=== PATIENT | male | born 1940 | race Caucasian/White ===

== ENCOUNTER 2022-03-04 06:55 | Outpatient (REF) | payer OTHER, SELFPAY ==
[2022-03-04 08:29] LABS: Appearance Urine Clear (Clear); Bilirubin Urine Negative (Negative); Blood Urine Negative (Negative); Color Urine Yellow (Yellow); Glucose Urine Negative (Negative); Ketones Urine Negative (Negative); Leukocyte Esterase Urine Negative (Negative); Nitrite Urine Negative (Negative); Protein Urine 2+ (Negative); Urobilinogen Urine 0.2 (0.2-1.0)
[2022-03-04 08:40] LABS: Bacteria Urine Many; RBC Urine 0-2 (0-2); Squamous Epithelial Cell Urine Few (None-Few); WBC Urine 0-2 (0-5)
== END 2022-03-04 06:56 | disposition home or self-care (01) ==
LOC: NPINS 06:55
PROVIDERS: Visit Provider Family Medicine
DX: R82.79 Other abnormal findings on microbiological examination of urine (principal)
CPT/HCPCS: 81001; 87086; 87186

== ENCOUNTER 2023-01-19 14:52 | Outpatient (CLI) | payer OTHER, SELFPAY | END 2023-01-19 14:53 | disposition home or self-care (01) | LOC: AMB 01-28 19:21 | PROVIDERS: PCP Family Medicine; Visit Provider Family Medicine | DX: R10.9 Unspecified abdominal pain (principal) | CPT/HCPCS: A0425; A0429 ==

== ENCOUNTER 2023-01-19 15:21 | Emergency (ER) | payer OTHER, SELFPAY ==
[2023-01-19] VITALS (16 sets, daily range): BP systolic 147–164; BP diastolic 62–71; PULSE 86–109; RESP 18; TEMP 36.2; O2SAT 91–99; BMI 26.3
--- NOTE | 2023-01-19 15:34 | ED_ITS ---
HPI - Abdominal Pain General Time Seen by Provider: 15:34 Date Seen: 01/19/23 Chief Complaint: Abdominal Pain Stated Complaint: Abdominal Pain Time Seen by Provider: 01/19/23 15:24 Source: patient, EMS, RN notes reviewed and old records reviewed Mode of arrival: EMS Limitations: no limitations History of Present Illness HPI narrative: Patient is an 82-year-old male resident of [address] [place] [address] that is sent in for abdominal pain. He is been noted to have abdominal pain bloating, started sometime between breakfast and lunch. He states he was quite sweaty on the way in due to the pain. That has subsided some. States he had a normal bowel movement this morning but does not believe he is passing gas from below. He has not had any fevers prior to this. Denies any nausea or vomiting. Denies any urinary symptoms. He has not been burping more. He is unaware if he is bloated right now our not. Denies any abdominal surgeries. He does have a scar in his right upper abdomen and states that is from they placed a [employer] shunt. EMS found his sugar to be 296. He states he did not get any medication from them EN route. Outside medication reconciliation from [address] [place] [address] includes Tylenol, acetylcysteine capsule, artificial tears, 81 mg aspirin, atorvastatin, Cepacol lozenges, Plavix, Debrox otic, Dupilumab injection, gabapentin, guaifenesin, hydroxyzine, ketotifen ophthalmic, levothyroxine, liquid antacid, loperamide, loratadine, melatonin, metformin, mirtazapine, pantoprazole, senna, tamsulosin, triamcinolone 0.1% topical, Vanicream POLST paperwork shows him to be DNR DNI, selective treatments no artificial nutrition by tube, oral antibiotics only, no IV or IM antibiotics Diagnoses on his outside paperwork show 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 MD elicited complaint: abdominal pain Related Data Home Medications Medication Instructions Recorded Confirmed aspirin 81 mg capsule 81 mg PO DAILY 01/19/23 01/19/23 atorvastatin 20 mg tablet 20 mg PO DAILY 01/19/23 01/19/23 clopidogrel 75 mg tablet 75 mg PO DAILY 01/19/23 01/19/23 gabapentin 300 mg capsule 300 mg PO QHS 01/19/23 01/19/23 levothyroxine 50 mcg tablet 50 mcg PO DAILY 01/19/23 01/19/23 (Euthyrox) loratadine 10 mg tablet (Allergy 10 mg PO DAILY 01/19/23 01/19/23 Relief (loratadine)) melatonin 3 mg capsule 3 mg PO HS PRN 01/19/23 01/19/23 metformin .ROUTE 01/19/23 pantoprazole 40 mg tablet,delayed 40 mg PO DAILY 01/19/23 01/19/23 release tamsulosin 0.4 mg capsule 0.4 mg PO DAILY 01/19/23 01/19/23 Allergies Allergy/AdvReac Type Severity Reaction Status Date / Time desoximetasone Allergy Unknown Verified 01/19/23 15:27 formaldehyde Allergy Unknown Verified 01/19/23 15:27 lisinopril Allergy Unknown Verified 01/19/23 15:27 methylisothiazolinone Allergy Unknown Verified 01/19/23 15:27 Review of Systems Status of ROS Reports: 6 or more systems reviewed and unremarkable except as noted in History and below Exam Const: Vital Signs, click to edit/add: Vital Signs - 24 hr 01/19/23 15:23 Temperature 97.1 F L Pulse Rate [Pulse Oximeter] 86 Respiratory Rate 18 Blood Pressure [Ri ght Upper Arm] 159/68 H Pulse Oximetry 95 Oxygen Delivery Me thod Room Air Documenting provider has reviewed patient's vital signs: yes Common normals: no apparent distress, average body habitus, no limitations, alert and well nourished General appearance: cooperative, comfortable, well kempt, well developed and frail appearing HENMT: Common normals: normocephalic, head/scalp atraumatic, hearing grossly normal bilaterally and external nose normal Head and scalp: normocephalic and atraumatic Face and sinus: normal facial exam Nose: external nose normal Eye: Common normals: PERRL, EOMs intact bilaterally, conjunctivae normal and no scleral icterus Conjunctiva: conjunctiva(e) normal Pupil: PERRL Neck & C-Spine: Common normals: full ROM, no lymphadenopathy and supple Resp: Common normals: normal respiratory effort, no retractions, no use of accessory muscles and clear to auscultation bilaterally Effort & inspection: able to speak in complete sentences Auscultation: clear to auscultation bilaterally Cardio: Common normals: regular rate, regular rhythm, S1 normal heart sound, S2 normal heart sound, no gallops and no murmurs Rate: regular rate Rhythm: regular rhythm Heart sounds: S1 normal and S2 normal GI: Other: Abdomen looks distended, has somewhat hyperactive bowel sounds, is not complaining of any tenderness when I palpate. There is certainly no rebound or guarding at this time. Neuro: Sensorium/orientation: alert Psych: Appearance: well kempt Course Course Hospital Course: Patient is an 82-year-old male with abdominal pain that seems to have abated at this time. On exam he really does seem distended and possibly some hyper active bowel sounds. Concern for obstructive bowel pathology certainly is a concern here. Will proceed with CT imaging with IV contrast, get full complement baseline labs. At this time he is stating he is not in pain but if the pain returns, have asked him to notify us. Reevaluation(s) Time of Reevaluation #1: 18:24 Reevaluation #1: Reviewed with Cherri that his CT of his abdomen was completely normal here. He has not had return of pain. Presumably this was maybe some bowel gas pain. In his records, we were able to see he had a hemoglobin of 9.1 on 10/09/2022, thus this hemoglobin is stable, currently 9 today. Did have nursing staff drop point of care troponin later and obtain an EKG just to ensure that we were not missing atypical presentation of cardiac issues. The troponin was certainly drawn well over 3 hours after his episode of pain. There is no evidence ischemic heart disease. This time will discharge back [facility]. Vital Signs Vital signs: Initial Vital Signs Temperature 97.1 F L 01/19/23 15:23 Temperature Source Temporal Artery Scan 01/19/23 15:23 Pulse Rate 86 01/19/23 15:23 Respiratory Rate 18 01/19/23 15:23 Blood Pressure 159/68 H 01/19/23 15:23 Blood Pressure Mean 98 01/19/23 15:23 Blood Pressure Position Supine 01/19/23 15:23 Pulse Oximetry 95 01/19/23 15:23 Oxygen Delivery Method Room Air 01/19/23 15:23 Vital Signs Temperature 97.1 F L 01/19/23 15:23 Pulse Rate 86 01/19/23 15:23 Respiratory Rate 18 01/19/23 15:23 Blood Pressure 159/68 H 01/19/23 15:23 Pulse Oximetry 95 01/19/23 15:23 Oxygen Delivery Method Room Air 01/19/23 15:23 Temperature 97.1 F L 01/19/23 15:23 Pulse Rate 86 01/19/23 15:23 Respiratory Rate 18 01/19/23 15:23 Blood Pressure 159/68 H 01/19/23 15:23 Pulse Oximetry 95 01/19/23 15:23 Oxygen Delivery Method Room Air 01/19/23 15:23 MDM - Abdominal Pain Lab Data Attestation: I reviewed the patient's lab results. Labs: Lab Results 01/19/23 01/19/23 01/19/23 Range/Units 16:10 16:15 17:30 WBC 10.21 (4.50-11.00) K/uL RBC 4.49 (4.30-5.90) m/uL Hgb 8.6 L (13.5-17.5) gm/dL Hct 30.8 L (37.0-53.0) % MCV 69 L (80-100) fL MCH 19 L (26-34) pg MCHC 28 L (32-36) gm/dL RDW Coeff of Adriana 17.9 H (11.5-15.5) % Plt Count 258 (140-440) K/uL Neut % (Auto) 84.0 H (42.0-72.0) % Lymph % (Auto) 5.6 L (20-44) % [place] % (Auto) 7.7 (0.0-11.0) % Eos % (Auto) 2.0 (0.0-7.0) % Baso % (Auto) 0.5 (0.0-3.0) % Neut # (Auto) 8.60 H (1.7-7.0) K/uL Lymph # (Auto) 0.60 L (0.90-2.90) K/uL [place] # (Auto) 0.80 (0.00-0.90) K/UL Eos # (Auto) 0.20 (0.00-0.50) K/uL Baso # (Auto) 0.05 (0.00-0.30) K/uL Abs Immat Gran (auto) 0.02 (0.00-0.30) K/uL Imm/Tot Granulo (auto) 0.2 % Sodium 136 (135-149) mmol/L Potassium 4.8 (3.6-5.1) mmol/L Chloride 101 (96-114) mmol/L Carbon Dioxide 26 (20-32) mmol/L BUN 21 (7-30) mg/dL Creatinine 1.4 (0.5-1.5) mg/dL Estimated Creat Clear 36.00 Estimated GFR 50 ml/min Glucose 229 H (60-115) mg/dL Lactate 1.8 (0.5-1.9) mmol/L Calcium 8.5 (8.4-10.6) mg/dL Total Bilirubin 0.6 (0.1-1.5) mg/dL AST 129 H (12-35) U/L ALT 45 (4-50) U/L Alkaline Phosphatase 185 H (40-150) U/L C-Reactive Protein 1.4 H (0.5-1.0) mg/dL Total Protein 7.3 (6.0-8.3) g/dL Albumin 4.1 (3.3-5.0) g/dL Lipase 325 H (23-300) U/L POC Creatinine 1.6 H (0.6-1.3) mg/dl POC Troponin I 0.00 L (0.01-0.04) ng/ml Imaging Data CT scan - abdomen: Attestation: I have reviewed the pertinent imaging results. Radiologist's impression: Patient: CHERRI KAUR Facility:?[facility] Patient ID:?[id number] Site Patient ID:?[id number]. Site :?[id number] Study:?CT Abdomen/Pelvis W/ 74CC [id number]/[id number] 4:35:04 PM Ordering Physician:?Kelly Echeverria Final Report: INDICATION: Abdominal pain and bloating. TECHNIQUE: CT abdomen and pelvis acquired with IV contrast. 74 mL IV Isovue 370. COMPARISON: None FINDINGS: Lower chest: Unremarkable. Liver: No focal liver lesion. Gallbladder and bile ducts: Unremarkable. Spleen: Unremarkable. Pancreas: Unremarkable. Adrenal glands: Unremarkable. Kidneys: No kidney or ureteral stones and no hydronephrosis. No renal lesions. GI tract: Small hiatal hernia. No bowel obstruction or inflammation. No fluid collection in the abdomen at the tip of the catheter. Vascular structures: Atherosclerotic calcifications in the abdominal aorta and branches. No abdominal aortic aneurysm. Lymph nodes: No abdominal or pelvic lymphadenopathy. Miscellaneous: No ascites. No free air. The distal aspect of a catheter is seen coursing along the subcutaneous soft tissues of the right anterior chest wall, it enters the right upper quadrant and has its tip in the left mid abdomen. No discontinuity of the catheter. Pelvic Organs: The prostate is enlarged. Normal appearance of the urinary bladder. Bones: Degenerative changes in the spine. No acute osseous abnormality. No suspicious bone lesion. IMPRESSION: 1. No acute abnormality in the abdomen or pelvis. 2. Small hiatal hernia. Please note that all CT scans at this facility use dose modulation, iterative reconstruction, and/or weight-based dosing when appropriate to reduce radiation dose to as low as reasonably achievable. Dictated by Lisandra Garces MD @ 01/19/2023 5:07:09 PM (Electronic Signature) ECG Data Attestation: I personally reviewed and interpreted this ECG as follows: (Sinus rhythm, rate 99. Low-voltage QRS. No acute ischemic change. QT corrected 449 milliseconds.) ECG interpretation date: 01/19/23 ECG interpretation time: 18:26 Prior ECG tracings: not available for review Critical Care Time Critical Care Time Critical Care Time: No Discharge Plan Discharge Clinical Impression: Abdominal pain Patient Disposition: Home, Self-Care Condition: Stable Instructions: Abdominal Pain (ED) Additional Instructions: We have not found any etiology for your abdominal pain. CT of your abdomen pelvis with IV contrast is showing a small hiatal hernia only. Doubt that this would have given you the symptoms you had earlier. It is possible that this could have been bowel gas as that can be extremely painful. Continue to monitor symptoms, seek re-evaluation if you have further concerns or problems. Activity Level: Activity as Tolerated Prescriptions: No Action aspirin 81 mg capsule 81 mg PO DAILY atorvastatin 20 mg tablet 20 mg PO DAILY clopidogrel 75 mg tablet 75 mg PO DAILY gabapentin 300 mg capsule 300 mg PO QHS levothyroxine [Euthyrox] 50 mcg tablet 50 mcg PO DAILY loratadine [Allergy Relief (loratadine)] 10 mg tablet 10 mg PO DAILY melatonin 3 mg capsule 3 mg PO HS PRN metformin .ROUTE pantoprazole 40 mg tablet,delayed release (DR/EC) 40 mg PO DAILY tamsulosin 0.4 mg capsule 0.4 mg PO DAILY Stand Alone Forms: [facility] Info Instructions
--- NOTE | 2023-01-19 15:38 | CRLHL7_ITS ---
For Patients: As a result of the Century Cures Act, medical imaging exams and procedure reports are released immediately into your electronic medical record. You may view this report before your referring provider. If you have questions, please contact your health care provider. INDICATION: Abdominal pain and bloating. TECHNIQUE: CT abdomen and pelvis acquired with IV contrast. 74 mL IV Isovue 370. COMPARISON: None FINDINGS: Lower chest: Unremarkable. Liver: No focal liver lesion. Gallbladder and bile ducts: Unremarkable. Spleen: Unremarkable. Pancreas: Unremarkable. Adrenal glands: Unremarkable. Kidneys: No kidney or ureteral stones and no hydronephrosis. No renal lesions. GI tract: Small hiatal hernia. No bowel obstruction or inflammation. No fluid collection in the abdomen at the tip of the catheter. Vascular structures: Atherosclerotic calcifications in the abdominal aorta and branches. No abdominal aortic aneurysm. Lymph nodes: No abdominal or pelvic lymphadenopathy. Miscellaneous: No ascites. No free air. The distal aspect of a catheter is seen coursing along the subcutaneous soft tissues of the right anterior chest wall, it enters the right upper quadrant and has its tip in the left mid abdomen. No discontinuity of the catheter. Pelvic Organs: The prostate is enlarged. Normal appearance of the urinary bladder. Bones: Degenerative changes in the spine. No acute osseous abnormality. No suspicious bone lesion. IMPRESSION: 1. No acute abnormality in the abdomen or pelvis. 2. Small hiatal hernia. Please note that all CT scans at this facility use dose modulation, iterative reconstruction, and/or weight-based dosing when appropriate to reduce radiation dose to as low as reasonably achievable. Dictated by Lisandra Garces MD @ 01/19/2023 5:07:09 PM (Electronically Signed)
[2023-01-19 16:16] LABS: Lactate* 1.8 mmol/L (0.5-1.9)
[2023-01-19 16:18] LABS: Basophils Absolute Auto 0.05 K/uL (0.00-0.30); Basophils Percent Auto 0.5 % (0.0-3.0); Hematocrit 30.8 % (37.0-53.0); Hemoglobin* 8.6 gm/dL (13.5-17.5); Immature Granulocytes Abs Auto 0.02 K/uL (0.00-0.30); Immature Granulocytes Pct Auto 0.2 %; Lymphocytes Percent Auto 5.6 % (20-44); Mean Corpuscular HGB Conc 28 gm/dL (32-36); Mean Corpuscular Hemoglobin 19 pg (26-34); Mean Corpuscular Volume 69 fL (80-100); Monocytes Percent Auto 7.7 % (0.0-11.0); Platelet Count* 258 K/uL (140-440); RDW Coefficient of Variation % 17.9 % (11.5-15.5); Red Blood Count 4.49 m/uL (4.30-5.90); White Blood Count* 10.21 K/uL (4.50-11.00)
[2023-01-19 16:20] LABS: Creatinine, Point-of-Care* 1.6 mg/dl (0.6-1.3)
[2023-01-19 16:22] LABS: Slide Review Reflex No
[2023-01-19 16:39] LABS: Albumin* 4.1 g/dL (3.3-5.0); Chloride* 101 mmol/L (96-114); Sodium* 136 mmol/L (135-149)
[2023-01-19 16:40] LABS: Potassium* 4.8 mmol/L (3.6-5.1)
[2023-01-19 16:42] LABS: Alanine Aminotransferase* 45 U/L (4-50); Alkaline Phosphatase* 185 U/L (40-150); Aspartate Amino Transferase* 129 U/L (12-35); Bilirubin Total* 0.6 mg/dL (0.1-1.5); Blood Urea Nitrogen* 21 mg/dL (7-30); Carbon Dioxide* 26 mmol/L (20-32); Creatinine* 1.4 mg/dL (0.5-1.5); Estimated Glomerular Filt Rate 50 ml/min; Glucose* 229 mg/dL (60-115); Total Protein* 7.3 g/dL (6.0-8.3)
[2023-01-19 16:43] LABS: Calcium* 8.5 mg/dL (8.4-10.6); Lipase* 325 U/L (23-300)
[2023-01-19 16:45] LABS: C Reactive Protein* 1.4 mg/dL (0.5-1.0)
[2023-01-19 18:24] LABS: Appearance Urine Clear (Clear); Bilirubin Urine Negative (Negative); Blood Urine Trace-intact (Negative); Color Urine Yellow (Yellow); Glucose Urine 1+ (Negative); Ketones Urine Negative (Negative); Leukocyte Esterase Urine Negative (Negative); Nitrite Urine Negative (Negative); Protein Urine 2+ (Negative); Specific Gravity Urine 1.015 (1.000-1.030); Urobilinogen Urine 0.2 (0.2-1.0)
[2023-01-19 18:34] LABS: RBC Urine 0-2 (0-2); WBC Urine 0-2 (0-5)
== END 2023-01-19 19:28 | disposition home or self-care (01) ==
PROVIDERS: Emergency Provider Family Medicine; PCP Internal Medicine Cardiovascular Disease
DX: R10.9 Unspecified abdominal pain (principal)
CPT/HCPCS: 36415; 74177; 80053; 81001; 82565; 83605; 83690; 84484; 85025; 86140; 93005; 94761; 99284; 99285; Q9967

== ENCOUNTER 2023-01-20 08:00 | Outpatient (CLI) | payer OTHER, SELFPAY | END 2023-01-20 08:01 | disposition home or self-care (01) | LOC: AMB 01-28 19:41 | PROVIDERS: PCP Family Medicine; Visit Provider Family Medicine | DX: E11.65 Type 2 diabetes mellitus with hyperglycemia (principal) | CPT/HCPCS: A0425; A0427 ==

== ENCOUNTER 2023-01-20 08:20 | Emergency (ER) | payer OTHER, SELFPAY ==
[2023-01-20] VITALS (32 sets, daily range): BP systolic 120–173; BP diastolic 54–90; PULSE 95–124; RESP 20–22; TEMP 37.1–37.2; O2SAT 87–96
--- NOTE | 2023-01-20 08:21 | ED.GENADULT ---
HPI - General Adult General Time Seen by Provider: 08:25 Date Seen: 01/20/23 Chief complaint: Unspecified Complaint, Adult Stated complaint: High blood sugar Time Seen by Provider: 01/20/23 08:21 Source: patient, EMS and RN notes reviewed Mode of arrival: EMS Limitations: no limitations History of Present Illness HPI narrative: Patient is a resident of local [facility], was sent back in this morning for a sugar of 520. He was seen yesterday, blood sugars were mildly elevated in the 200 range. Patient was evaluated for abdominal pain and no etiology found. He states he feels ?great?. He has no complaints of pain anywhere, no abdominal pain. Does not believe he has had fevers overnight. No nausea or vomiting, no cough or cold symptoms, no urinary symptoms. He states that he is supposed to start in injectable diabetic med next week, is supposed to get that every 2 weeks. He otherwise believes he is just on metformin. EMS placed an IV and started 500 mL normal saline. They did not check his sugar. Related Data Home Medications Medication Instructions Recorded Confirmed aspirin 81 mg capsule 81 mg PO DAILY 01/19/23 01/19/23 atorvastatin 20 mg tablet 20 mg PO DAILY 01/19/23 01/19/23 clopidogrel 75 mg tablet 75 mg PO DAILY 01/19/23 01/19/23 gabapentin 300 mg capsule 300 mg PO QHS 01/19/23 01/19/23 levothyroxine 50 mcg tablet 50 mcg PO DAILY 01/19/23 01/19/23 (Euthyrox) loratadine 10 mg tablet (Allergy 10 mg PO DAILY 01/19/23 01/19/23 Relief (loratadine)) melatonin 3 mg capsule 3 mg PO HS PRN 01/19/23 01/19/23 metformin .ROUTE 01/19/23 pantoprazole 40 mg tablet,delayed 40 mg PO DAILY 01/19/23 01/19/23 release tamsulosin 0.4 mg capsule 0.4 mg PO DAILY 01/19/23 01/19/23 Allergies Allergy/AdvReac Type Severity Reaction Status Date / Time desoximetasone Allergy Unknown Verified 01/20/23 10:54 formaldehyde Allergy Unknown Verified 01/20/23 10:54 lisinopril Allergy Unknown Verified 01/20/23 10:54 methylisothiazolinone Allergy Unknown Verified 07/23/23 10:54 Review of Systems Status of ROS: Reports: 10 or more systems reviewed and unremarkable except as noted in History and below PFS PFS Social History Smoking Status: Former smoker Do you use any of these nicotine containing products: None Second hand tobacco smoke exposure: No How often do you have a drink containing alcohol: never How often do you have six or more drinks on one occasion: Never AUDIT-C Alcohol total score: 0 Non-prescribed substance use: denies use service: Yes Exam Const: Vital Signs, click to edit/add: Vital Signs - 24 hr 01/20/23 08:26 Temperature 98.7 F Pulse Rate [Right Pulse Oximeter] 102 H Respiratory Rate 20 Blood Pressure [Ri ght Upper Arm] 122/54 L Pulse Oximetry 92 Oxygen Delivery Me thod Room Air Documenting provider has reviewed patient's vital signs: yes Common normals: no apparent distress, average body habitus, oriented x3, no limitations, healthy appearing, alert and well nourished General appearance: cooperative and comfortable Other: Does have some food staining on his clothes on the left side. Is very pleasant and conversive with me. HENMT: Common normals: normocephalic, head/scalp atraumatic, hearing grossly normal bilaterally and external nose normal Head and scalp: normocephalic and atraumatic Face and sinus: normal facial exam Nose: external nose normal Eye: Common normals: PERRL, EOMs intact bilaterally, conjunctivae normal and no scleral icterus Conjunctiva: conjunctiva(e) normal Pupil: PERRL Neck & C-Spine: Common normals: full ROM, no lymphadenopathy and supple Resp: Common normals: normal respiratory effort, no retractions, no use of accessory muscles and clear to auscultation bilaterally Effort & inspection: able to speak in complete sentences Auscultation: clear to auscultation bilaterally Cardio: Common normals: regular rate, regular rhythm, S1 normal heart sound, S2 normal heart sound, no gallops, no clicks and no murmurs Rate: regular rate Rhythm: regular rhythm Heart sounds: S1 normal and S2 normal GI: Common normals: Normal to inspection, nondistended, normoactive bowel sounds present, soft to palpation, non-tender, no hepatosplenomegaly and no masses Palpation: soft and no hepatosplenomegaly Extremity: Common normals: no calf tenderness and no pedal edema Neuro: Common normals: oriented x3, moves all extremities, no focal motor deficits and no sensory deficits noted Sensorium/orientation: alert Course Course Hospital Course: EMS has an IV line in 500 mL normal saline going, will complete this. Will get an Accu-Chek. Will recheck blood work, portable chest x-ray to ensure no underlying infection. I suspect this patient has known uncontrolled diabetes as a subsequent medicine is going to be started next week. He feels great, has no focal symptoms at this time. Reevaluation(s) Time of Reevaluation #1: 09:45 Reevaluation #1: Reviewed with Cherri that there is pneumonia on his chest x-ray. He will be given IV Rocephin and azithromycin for community-acquired pneumonia. Have given him another L of fluids given his elevated lactate, increased white blood count. Need to get an accurate weight on him for fluid bolus recommendations given that he is meeting criteria for sepsis. He is still stable. We unfortunately have no bed capacity here, have confirmed this with our hospitalist. Will need to look for placement for him. I do know [facility] has bed capacity right now, will start there. Time of Reevaluation #2: 11:50 Reevaluation #2: Patient's son was here and appropriately pointed out that the patient is [facility]. We did contact the [place], they have no bed availability and patient will still transfer to [facility] which I anticipated. His CT is back, no evidence of any liver or gallbladder or pancreas abnormality. He is meeting criteria for severe sepsis. There is some evidence of some developing fluid overload. Will hold on his 2 L for fluid bolus, has received antibiotics for community-acquired pneumonia. Blood pressure pulse and respiratory rate including oximetry are all stable. He is being transferred to higher level of care which ultimately may benefit this patient, can see the need where he might need increased levels of care, multi-specialty cares. We still currently do not have bed availability but it may be safest for this patient to be at night advance institution like [facility]. Consultations Consultation #1: Spoke with hospitalist from [facility] Dr. Grace, reviewed the case. Unfortunately, besides what appears to be a community-acquired pneumonia on his chest x-ray on the left side, his liver enzymes have significantly elevated overnight. Patient is asymptomatic, no abdominal pain. We will be reimaging with chest abdomen pelvis with IV contrast and Dr. Rodas is aware of this. We will push all of his images from yesterday and today to [facility]. I will contact them back once I have a report on the chest abdomen pelvis. Patient is already received Rocephin and azithromycin, reviewed this with Dr. Rodas. If there is concern for cholecystitis or abdominal pathology, may need additional anaerobic coverage and he did recommend Flagyl which is an excellent idea. We have no bed capacity here and if patient is having multi system issues, may be best served at a larger institution like [facility]. Time: 10:35 Vital Signs Vital signs: Initial Vital Signs Temperature 98.7 F 01/20/23 08:26 Temperature Source Temporal Artery Scan 01/20/23 08:26 Pulse Rate 102 H 01/20/23 08:26 Respiratory Rate 20 01/20/23 08:26 Blood Pressure 122/54 L 01/20/23 08:26 Blood Pressure Mean 76 01/20/23 08:26 Blood Pressure Position Sitting 01/20/23 08:26 Pulse Oximetry 92 01/20/23 08:26 Oxygen Delivery Method Room Air 01/20/23 08:26 Vital Signs Temperature 98.7 F 01/20/23 08:26 Pulse Rate 102 H 01/20/23 08:26 Respiratory Rate 20 01/20/23 08:26 Blood Pressure 122/54 L 01/20/23 08:26 Pulse Oximetry 92 01/20/23 08:26 Oxygen Delivery Method Room Air 01/20/23 08:26 Temperature 98.7 F 01/20/23 08:26 Pulse Rate 102 H 01/20/23 08:26 Respiratory Rate 20 01/20/23 08:26 Blood Pressure 122/54 L 01/20/23 08:26 Pulse Oximetry 92 01/20/23 08:26 Oxygen Delivery Method Room Air 01/20/23 08:26 Medical Decision Making Lab Data Lab results reviewed: Yes I reviewed the patient's lab results Labs: Lab Results 01/20/23 Range/Units 09:20 WBC 18.09 H (4.50-11.00) K/uL RBC 4.32 (4.30-5.90) m/uL Hgb 8.3 L (13.5-17.5) gm/dL Hct 29.7 L (37.0-53.0) % MCV 69 L (80-100) fL MCH 19 L (26-34) pg MCHC 28 L (32-36) gm/dL RDW Coeff of Adriana 18.5 H (11.5-15.5) % Plt Count 238 (140-440) K/uL Neut % (Auto) 87.9 H (42.0-72.0) % Lymph % (Auto) 3.4 L (20-44) % Real % (Auto) 8.4 (0.0-11.0) % Eos % (Auto) 0.0 (0.0-7.0) % Baso % (Auto) 0.1 (0.0-3.0) % Neut # (Auto) 15.90 H (1.7-7.0) K/uL Lymph # (Auto) 0.60 L (0.90-2.90) K/uL Real # (Auto) 1.50 H (0.00-0.90) K/UL Eos # (Auto) 0.00 (0.00-0.50) K/uL Baso # (Auto) 0.00 (0.00-0.30) K/uL Abs Immat Gran (auto) 0.00 (0.00-0.30) K/uL Imm/Tot Granulo (auto) 0.2 % Sodium 135 (135-149) mmol/L Potassium 4.5 (3.6-5.1) mmol/L Chloride 100 (96-114) mmol/L Carbon Dioxide 21 (20-32) mmol/L BUN 28 (7-30) mg/dL Creatinine 1.7 H (0.5-1.5) mg/dL Estimated GFR 40 ml/min Glucose 417 H* (60-115) mg/dL Lactate 3.8 H (0.5-1.9) mmol/L Calcium 8.4 (8.4-10.6) mg/dL Total Bilirubin 2.8 H (0.1-1.5) mg/dL AST 356 H (12-35) U/L ALT 337 H (4-50) U/L Alkaline Phosphatase 270 H (40-150) U/L C-Reactive Protein 7.3 H (0.5-1.0) mg/dL Total Protein 7.0 (6.0-8.3) g/dL Albumin 3.9 (3.3-5.0) g/dL Lipase 170 (23-300) U/L Urine Color Dark yellow (Yellow) Urine Appearance Clear (Clear) Urine pH 7.0 (5.0-8.5) Ur Specific Bartley 1.015 (1.000-1.030) Urine Protein 2+ A (Negative) Urine Glucose (UA) 2+ A (Negative) Urine Ketones Negative (Negative) Urine Blood Trace-intact A (Negative) Urine Nitrite Negative (Negative) Urine Bilirubin 1+ A (Negative) Urine Urobilinogen 0.2 (0.2-1.0) Ur Leukocyte Esterase Negative (Negative) Urine RBC 2-5 A (0-2) Urine WBC 0-2 (0-5) Ur Squamous Epith Cells Few (None-Few) Urine Bacteria None (None) Imaging Data Chest x-ray: Attestation: I have reviewed the pertinent imaging results. My impression: I do see a left-sided infiltrate along the heart border on my preliminary review, await Radiology over-read. Radiologist's impression: Patient: CHERRI KAUR Facility:?[facility] Patient ID:?[id number] Site Patient ID:?[id number]. Site :?[id number] Study:?XRay Chest PCXR-01/20/2023 9:00:56 AM Ordering Physician:Nabil Echeverria Final Report: INDICATION: Hyperglycemia. Rule out infection. TECHNIQUE: Portable AP image of the chest. COMPARISON: 02/19/2021 FINDINGS: Lungs low in volume with crowded markings in the bases. Retrocardiac left lower lobe base pneumonia. No pleural effusion. Heart, mediastinum and pulmonary vessels within normal limits, allowing for the shallow inspiration. No significant osseous abnormality. OUTBOUND TELEMARKETING REPRESENTATIVE shunt, as before. IMPRESSION: Retrocardiac left lower lobe base pneumonia. Dictated by Jevon Ng MD @ 01/20/2023 9:14:17 AM (Electronic Signature) CT Chest/Ab/Pelvis: Attestation: I have reviewed the pertinent imaging results. Radiologist's impression: Patient: CHERRI KAUR Facility:[facility] Patient ID:?[id number] Site Patient ID:?[id number]. Site :?[id number] Study:?CT Chest/Abd/Pelvis W/ 78CC FEVSYZ-908-6/23/2023 11:11:25 AM Ordering Physician:Nabil Echeverria Final Report: INDICATION: Elevated liver function test. Left-sided pneumonia on chest x-ray. TECHNIQUE: Volumetric helical scanning of the chest, abdomen and pelvis was performed with 78 cc of Isovue 370 contrast material IV. Coronal and sagittal reconstructions were obtained. COMPARISON: Abdomen/pelvis CT of 01/19/2023 FINDINGS: CHEST: A patchy pneumonia in the left lower lobe is demonstrated and is increased since yesterday. A new patchy airspace infiltrate in the posterior lingula is also noted. Prominent interstitial lines are now noted, suggesting mild pulmonary edema. No pleural effusion is evident. A paratracheal lymph node with short axis measurement of 10 mm is demonstrated on image 33 of series 3. No other lymphadenopathy is evident in the mediastinum or hari. The heart is normal in size. Calcified coronary arterial plaque is demonstrated. ABDOMEN/PELVIS: The liver is normal in size, shape and attenuation. The bile ducts are within normal limits. No lymphadenopathy is evident. No free fluid is demonstrated. The spleen, adrenal glands and pancreas are negative. The kidneys are unremarkable. The bowel is negative except for a small hiatal hernia and sigmoid diverticulosis. The prostate is mildly enlarged. A OUTBOUND TELEMARKETING REPRESENTATIVE shunt is noted. No lytic or blastic bone lesion is identified. IMPRESSION: 1. Progression of left lower lobe pneumonia and new pneumonia in the posterior lingula. 2. Mild pulmonary edema suggested. Question fluid overload. 3. Solitary mildly enlarged paratracheal lymph node. 4. Mild prostate enlargement. 5. Small hiatal hernia. Note, no documentation on CT reading yesterday of any infiltrate. This was a CT of abdomen pelvis but there was no comment on any abnormality within the lower portion of the lungs on this CT. Discharge Plan Discharge Clinical Impression: Community acquired pneumonia, Sepsis Patient Disposition: Xfer [employer] Discharge Location: [facility] Condition: Stable Prescriptions: No Action aspirin 81 mg capsule 81 mg PO DAILY atorvastatin 20 mg tablet 20 mg PO DAILY clopidogrel 75 mg tablet 75 mg PO DAILY gabapentin 300 mg capsule 300 mg PO QHS levothyroxine [Euthyrox] 50 mcg tablet 50 mcg PO DAILY loratadine [Allergy Relief (loratadine)] 10 mg tablet 10 mg PO DAILY melatonin 3 mg capsule 3 mg PO HS PRN metformin .ROUTE pantoprazole 40 mg tablet,delayed release (DR/EC) 40 mg PO DAILY tamsulosin 0.4 mg capsule 0.4 mg PO DAILY Follow Up/Referrals: Perez Hollins MD [Referring] - Stand Alone Forms: [employer] Info Instructions
--- NOTE | 2023-01-20 08:38 | CRLHL7_ITS ---
For Patients: As a result of the Cures Act, medical imaging exams and procedure reports are released immediately into your electronic medical record. You may view this report before your referring provider. If you have questions, please contact your health care provider. INDICATION: Hyperglycemia. Rule out infection. TECHNIQUE: Portable AP image of the chest. COMPARISON: 02/19/2021 FINDINGS: Lungs low in volume with crowded markings in the bases. Retrocardiac left lower lobe base pneumonia. No pleural effusion. Heart, mediastinum and pulmonary vessels within normal limits, allowing for the shallow inspiration. No significant osseous abnormality. FUR DESIGNER shunt, as before. IMPRESSION: Retrocardiac left lower lobe base pneumonia. Dictated by Jevon Ng MD @ 01/20/2023 9:14:17 AM (Electronically Signed)
[2023-01-20 09:27] LABS: Lactate* 3.8 mmol/L (0.5-1.9)
[2023-01-20 09:32] LABS: Appearance Urine Clear (Clear); Bilirubin Urine 1+ (Negative); Blood Urine Trace-intact (Negative); Color Urine Dark yellow (Yellow); Glucose Urine 2+ (Negative); Ketones Urine Negative (Negative); Leukocyte Esterase Urine Negative (Negative); Nitrite Urine Negative (Negative); Protein Urine 2+ (Negative); Specific Gravity Urine 1.015 (1.000-1.030); Urobilinogen Urine 0.2 (0.2-1.0)
[2023-01-20 09:35] LABS: Basophils Percent Auto 0.1 % (0.0-3.0); Hematocrit 29.7 % (37.0-53.0); Hemoglobin* 8.3 gm/dL (13.5-17.5); Immature Granulocytes Pct Auto 0.2 %; Lymphocytes Percent Auto 3.4 % (20-44); Mean Corpuscular HGB Conc 28 gm/dL (32-36); Mean Corpuscular Hemoglobin 19 pg (26-34); Mean Corpuscular Volume 69 fL (80-100); Monocytes Percent Auto 8.4 % (0.0-11.0); Neutrophils Percent Auto 87.9 % (42.0-72.0); Platelet Count* 238 K/uL (140-440); RDW Coefficient of Variation % 18.5 % (11.5-15.5); Red Blood Count 4.32 m/uL (4.30-5.90); White Blood Count* 18.09 K/uL (4.50-11.00)
[2023-01-20 09:39] LABS: Slide Review Reflex No
[2023-01-20 09:45] LABS: Albumin* 3.9 g/dL (3.3-5.0); Chloride* 100 mmol/L (96-114)
[2023-01-20] MEDS: 0.9 % SODIUM CHLORIDE 500 ML 500 ML 1000 ML IV (09:45)
[2023-01-20 09:46] LABS: Potassium* 4.5 mmol/L (3.6-5.1); Sodium* 135 mmol/L (135-149); Squamous Epithelial Cell Urine Few (None-Few); WBC Urine 0-2 (0-5)
[2023-01-20 09:48] LABS: Alkaline Phosphatase* 270 U/L (40-150); Aspartate Amino Transferase* 356 U/L (12-35); Bilirubin Total* 2.8 mg/dL (0.1-1.5); Carbon Dioxide* 21 mmol/L (20-32); Creatinine* 1.7 mg/dL (0.5-1.5); Estimated Glomerular Filt Rate 40 ml/min
[2023-01-20 09:49] LABS: Alanine Aminotransferase* 337 U/L (4-50); Blood Urea Nitrogen* 28 mg/dL (7-30); Calcium* 8.4 mg/dL (8.4-10.6); Lipase* 170 U/L (23-300)
[2023-01-20 09:51] LABS: C Reactive Protein* 7.3 mg/dL (0.5-1.0)
[2023-01-20] MEDS: cefTRIAXone 1 GM in 0.9 % SODIUM CHLORIDE Mini-bag 100 ML IVPB (09:56)
[2023-01-20] MEDS: AZITHROMYCIN 250 MG TABLET 500 MG PO (09:59)
[2023-01-20 10:06] LABS: Glucose* 417 mg/dL (60-115)
--- NOTE | 2023-01-20 10:29 | CRLHL7_ITS ---
For Patients: As a result of the Century Cures Act, medical imaging exams and procedure reports are released immediately into your electronic medical record. You may view this report before your referring provider. If you have questions, please contact your health care provider. INDICATION: Elevated liver function test. Left-sided pneumonia on chest x-ray. TECHNIQUE: Volumetric helical scanning of the chest, abdomen and pelvis was performed with 78 cc of Isovue 370 contrast material IV. Coronal and sagittal reconstructions were obtained. COMPARISON: Abdomen/pelvis CT of 01/19/2023 FINDINGS: CHEST: A patchy pneumonia in the left lower lobe is demonstrated and is increased since yesterday. A new patchy airspace infiltrate in the posterior lingula is also noted. Prominent interstitial lines are now noted, suggesting mild pulmonary edema. No pleural effusion is evident. A paratracheal lymph node with short axis measurement of 10 mm is demonstrated on image 33 of series 3. No other lymphadenopathy is evident in the mediastinum or hari. The heart is normal in size. Calcified coronary arterial plaque is demonstrated. ABDOMEN/PELVIS: The liver is normal in size, shape and attenuation. The bile ducts are within normal limits. No lymphadenopathy is evident. No free fluid is demonstrated. The spleen, adrenal glands and pancreas are negative. The kidneys are unremarkable. The bowel is negative except for a small hiatal hernia and sigmoid diverticulosis. The prostate is mildly enlarged. A TOOL OR DIE DRAWING CHECKER shunt is noted. No lytic or blastic bone lesion is identified. IMPRESSION: 1. Progression of left lower lobe pneumonia and new pneumonia in the posterior lingula. 2. Mild pulmonary edema suggested. Question fluid overload. 3. Solitary mildly enlarged paratracheal lymph node. 4. Mild prostate enlargement. 5. Small hiatal hernia. Please note that all CT scans at this facility use dose modulation, iterative reconstruction, and/or weight-based dosing when appropriate to reduce radiation dose to as low as reasonably achievable. Dictated by Jevon Ng MD @ 01/20/2023 11:31:17 AM (Electronically Signed)
--- NOTE | 2023-01-20 11:00 | ED.NURSE ---
report was called to adrian fitzgerald rn.
--- NOTE | 2023-01-20 11:22 | ED.NURSE ---
[facility] aware of transfer and admission. they will alert son.
[2023-01-20] MEDS: 0.9 % SODIUM CHLORIDE 1000 ml 1,000 ML 500 ML IV (11:29)
--- NOTE | 2023-01-20 14:11 | ED.NURSE ---
did eat [place] islander yogurt and felt better after eating. son has been in room. transfer has been delayed due to [facility] 911 transfers.
== END 2023-01-20 15:20 | disposition short-term general hospital (02) ==
PROVIDERS: Emergency Provider Family Medicine; PCP Family Medicine
DX: J18.9 Pneumonia, unspecified organism (principal); A41.9 Sepsis, unspecified organism
CPT/HCPCS: 36415; 71045; 71260; 74177; 80053; 81001; 82947; 83605; 83690; 85025; 86140; 96365; 99285; A9270; J0696; J7030; J7120; Q9967

== ENCOUNTER 2023-01-20 15:22 | Outpatient (CLI) | payer OTHER, SELFPAY | END 2023-01-20 15:23 | disposition home or self-care (01) | PROVIDERS: PCP Family Medicine; Visit Provider Family Medicine | DX: J18.9 Pneumonia, unspecified organism (principal) | CPT/HCPCS: A0425; A0428 ==

== ENCOUNTER 2023-09-24 11:28 | Outpatient (CLI) | payer OTHER, SELFPAY | END 2023-09-24 11:29 | disposition home or self-care (01) | PROVIDERS: PCP Family Medicine; Visit Provider Family Medicine | DX: R11.2 Nausea with vomiting, unspecified (principal) | CPT/HCPCS: A0425; A0427 ==

== ENCOUNTER 2023-09-24 12:06 | Inpatient (IN) | payer OTHER, SELFPAY ==
[2023-09-24] VITALS (28 sets, daily range): BP systolic 99–137; BP diastolic 46–81; PULSE 109–165; RESP 20–30; TEMP 36.6–39.2; O2SAT 88–95; BMI 24.0; BMI 25.5
--- NOTE | 2023-09-24 12:26 | ED.GENADULT ---
HPI - General Adult General Time Seen by Provider: 12:27 Date Seen: 09/24/23 Chief complaint: Nausea/Vomiting Stated complaint: Vomiting Time Seen by Provider: 09/24/23 12:07 Source: patient, EMS, RN notes reviewed, old records reviewed and other (Phone call from Mery Kelley NP) Mode of arrival: EMS History of Present Illness HPI narrative: This 83yo male is sent from [facility] by Mery Kelley NP for further evaluation of nausea/vomiting that started today. He reportedly started having emesis around 4:30am today. He had an episode of emesis en route with EMS, they were unable to establish an IV despite 2 attempts, has not received anything. He states that he no longer is feeling nauseated, denies any pain any where and specifically has no abdominal pain. He states that he did have episode of diarrhea this am. Mery evaluated patient and his vitals at that time were temp 99.7F, 84/56 blood pressure, 120 pulse with patient having distended abdomen and lethargy. He is DNR with selective treatments to be considered. [facility]. EMS had vitals 101/62, pulse in 120's sinus tachycardia, 400 blood glucose in known diabetic that did not take his medications this am. 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 Patient denies headache, sore throat, nasal congestion but states that he has a little coughing. Related Data Home Medications Medication Instructions Recorded Confirmed aspirin 81 mg capsule 81 mg PO DAILY 01/19/23 09/24/23 atorvastatin 20 mg tablet 20 mg PO DAILY 01/19/23 09/24/23 clopidogrel 75 mg tablet 75 mg PO DAILY 01/19/23 09/24/23 gabapentin 300 mg capsule 300 mg PO HS 01/19/23 09/24/23 levothyroxine 50 mcg tablet 50 mcg PO DAILY 01/19/23 09/24/23 (Euthyrox) loratadine 10 mg tablet (Allergy 10 mg PO DAILY 01/19/23 09/24/23 Relief (loratadine)) melatonin 3 mg capsule 3 mg PO HS PRN 01/19/23 09/24/23 pantoprazole 40 mg tablet,delayed 40 mg PO DAILY 01/19/23 09/24/23 release tamsulosin 0.4 mg capsule 0.4 mg PO DAILY 01/19/23 09/24/23 metformin 500 mg tablet 1,500 mg PO QPM 09/24/23 09/24/23 Allergies Allergy/AdvReac Type Severity Reaction Status Date / Time desoximetasone Allergy Unknown Verified 01/20/23 10:54 formaldehyde Allergy Unknown Verified 01/20/23 10:54 lisinopril Allergy Unknown Verified 01/20/23 10:54 methylisothiazolinone Allergy Unknown Verified 01/20/23 10:54 Review of Systems Status of ROS: Reports: 6 or more systems reviewed and unremarkable except as noted in History and below [facility] Medical History (Updated 09/24/23 @ 16:56 by Paloma Christina PA-C) Type 2 diabetes mellitus ?E11.9 - Type 2 diabetes mellitus without complications (ICD-10) CKD (chronic kidney disease) ?N18.9 - Chronic kidney disease, unspecified (ICD-10) BPH (benign prostatic hyperplasia) ?N40.0 - Benign prostatic hyperplasia without lower urinary tract symptoms (ICD-10) GERD (gastroesophageal reflux disease) ?K21.9 - Gastro-esophageal reflux disease without esophagitis (ICD-10) Hyperlipidemia ?E78.5 - Hyperlipidemia, unspecified (ICD-10) Hypothyroidism ?E03.9 - Hypothyroidism, unspecified (ICD-10) History of CVA (cerebrovascular accident) ?Z86.73 - Personal history of transient ischemic attack (TIA), and cerebral infarction without residual deficits (ICD-10) Social History Smoking Status: Former smoker Do you use any of these nicotine containing products: None Second hand tobacco smoke exposure: No How often do you have a drink containing alcohol: never How often do you have six or more drinks on one occasion: Never AUDIT-C Alcohol total score: 0 Non-prescribed substance use: denies use service: Yes Exam Const: Vital Signs, click to edit/add: Vital Signs - 24 hr 09/24/23 12:14 09/24/23 13:14 09/24/23 13:15 Temperature 99.6 F Pulse Rate 123 H 165 H Pulse Rate [Apical ] 128 H Respiratory Rate 30 H Blood Pressure Blood Pressure [Ri ght Upper Arm] 108/55 L Pulse Oximetry 92 94 Oxygen Delivery Me thod Room Air Oxygen Flow Rate 09/24/23 13:18 09/24/23 13:31 09/24/23 13:32 Temperature Pulse Rate 121 H Pulse Rate [Apical ] Respiratory Rate Blood Pressure 100/46 L Blood Pressure [Ri ght Upper Arm] 99/54 L Pulse Oximetry 91 92 Oxygen Delivery Me thod Oxygen Flow Rate 09/24/23 14:00 09/24/23 14:01 09/24/23 14:02 Temperature Pulse Rate 124 H 124 H 117 H Pulse Rate [Apical ] Respiratory Rate Blood Pressure 114/51 L Blood Pressure [Ri ght Upper Arm] Pulse Oximetry 91 91 91 Oxygen Delivery Me thod Oxygen Flow Rate 09/24/23 14:34 09/24/23 14:34 09/24/23 14:35 Temperature Pulse Rate 129 H 129 H 126 H Pulse Rate [Apical ] Respiratory Rate Blood Pressure 134/69 134/69 Blood Pressure [Ri ght Upper Arm] Pulse Oximetry 92 92 92 Oxygen Delivery Me thod Oxygen Flow Rate 09/24/23 14:40 09/24/23 15:00 09/24/23 15:01 Temperature 99.1 F Pulse Rate 127 H 127 H Pulse Rate [Apical ] Respiratory Rate Blood Pressure 118/55 L Blood Pressure [Ri ght Upper Arm] Pulse Oximetry 92 90 Oxygen Delivery Me thod Oxygen Flow Rate 09/24/23 15:30 09/24/23 15:31 09/24/23 15:32 Temperature Pulse Rate 127 H 126 H 128 H Pulse Rate [Apical ] Respiratory Rate Blood Pressure 120/66 Blood Pressure [Ri ght Upper Arm] Pulse Oximetry 88 88 89 Oxygen Delivery Me thod Nasal Cannula Oxygen Flow Rate 1 09/24/23 15:42 09/24/23 16:00 09/24/23 16:01 Temperature Pulse Rate 131 H 131 H Pulse Rate [Apical ] Respiratory Rate Blood Pressure 127/57 L Blood Pressure [Ri ght Upper Arm] Pulse Oximetry 93 92 94 Oxygen Delivery Me thod Nasal Cannula Nasal Cannula Nasal Cannula Oxygen Flow Rate 1 1 1 09/24/23 16:02 09/24/23 16:09 Temperature 99.8 F H Pulse Rate 134 H Pulse Rate [Apical ] Respiratory Rate Blood Pressure Blood Pressure [Ri ght Upper Arm] Pulse Oximetry 94 Oxygen Delivery Me thod Oxygen Flow Rate Patient is alert, conversive, interactive and looks bright on arrival here. Sclera clear symmetrical facial function. Neck is supple, no masses. Somewhat distant breath sounds but lungs are clear. Heart sounds are distant, here his heart rate best overlying the apex, it is fast but regular, cannot hear any murmur. Abdomen is soft, maybe has a mild appearance of distension. Bowel sounds are active but not tympanitic or rushing. He is absolutely nontender anywhere I palpate, feel no organomegaly or masses. Documenting provider has reviewed patient's vital signs: yes Course Course ED Course: Alert and conversive patient without hypotension but tachycardic, fever. Abdomen is completely benign on examination and is endorsing both vomiting and diarrhea. Do think we need to consider infectious etiology and will certainly test for COVID and influenza. Will obtain full complement of labs including blood cultures. Will initiate a L of IV fluids and 4 mg IV Zofran. Will be monitored on pulse oximetry and cardiac monitoring. Will confirm sinus tachycardia with EKG, make sure there is no concerning ischemic change. This certainly could be a viral gastroenteritis presentation. Will have low threshold for abdominal imaging but right now he is absolutely pain-free including with examination. Will obtain chest x-ray given his complaint of cough. Blood cultures will be drawn. Need to consider sepsis in this patient. Reevaluation(s) Time of Reevaluation #1: 13:54 Reevaluation #1: [place] [address] and lactate of 6. Will order subsequent fluids and do chest abdomen pelvis CT with IV contrast if possible, waiting creatinine. Needs just above 2L IVF for 30ml/kg fluid bolus, will be ordering second L IVF. Time of Reevaluation #2: 16:14 Reevaluation #2: Patient has low-grade temperature, has completed his sepsis fluids but maintains tachycardia. Will order some Tylenol to see if this helps improve symptoms. He is not hypotensive, does not need any pressor support based on blood pressure. Consultations Consultation #1: Has spoken with the hospitalist Paloma Christina, she accepts this patient. Reviewed sepsis from UTI source. Had initiated IV Zosyn after UA was collected but did not wait for the result. Vancomycin also ordered given sepsis. Time: 15:42 Vital Signs Vital signs: Initial Vital Signs Temperature 99.6 F 09/24/23 12:14 Temperature Source Temporal Artery Scan 09/24/23 12:14 Pulse Rate 128 H 09/24/23 12:14 Pulse Rhythm Regular 09/24/23 12:14 Respiratory Rate 30 H 09/24/23 12:14 Blood Pressure 108/55 L 09/24/23 12:14 Blood Pressure Mean 72 09/24/23 12:14 Blood Pressure Position Supine 09/24/23 12:14 Pulse Oximetry 92 09/24/23 12:14 Oxygen Delivery Method Room Air 09/24/23 12:14 Vital Signs Temperature 99.6 F 09/24/23 12:14 Pulse Rate 128 H 09/24/23 12:14 Respiratory Rate 30 H 09/24/23 12:14 Blood Pressure 108/55 L 09/24/23 12:14 Pulse Oximetry 92 09/24/23 12:14 Oxygen Delivery Method Room Air 09/24/23 12:14 Temperature 102.5 F H 09/24/23 16:30 Pulse Rate 134 H 09/24/23 16:02 Respiratory Rate 20 09/24/23 16:30 Blood Pressure 137/65 09/24/23 16:30 Pulse Oximetry 91 09/24/23 16:30 Oxygen Delivery Method Nasal Cannula 09/24/23 17:01 Oxygen Flow Rate 2 09/24/23 17:01 Medications Administered Medications: Discontinued Medications Generic Name Dose Route Start Last Admin Trade Name Freq PRN Reason Stop Dose Admin Acetaminophen 650 mg 09/24/23 16:13 09/24/23 16:25 Acetaminophen 325 Mg Tablet PO 09/24/23 16:14 650 mg ONCE ONE Administration Sodium Chloride 1,000 mls @ 500 mls/hr 09/24/23 12:37 09/24/23 14:40 0.9 % Sodium Chloride 1000 Ml IV 09/24/23 14:36 Infused .Q2H ALIREZA Infusion Sodium Chloride 1,000 mls @ 500 mls/hr 09/24/23 13:59 09/24/23 15:11 0.9 % Sodium Chloride 1000 Ml IV 09/24/23 15:58 500 mls/hr .Q2H ALIREZA Administration Piperacillin Sod/Tazobactam 100 mls @ 200 mls/hr 09/24/23 14:51 09/24/23 15:44 Sod 3.375 gm/ Sodium Chloride IVPB 09/24/23 14:52 Infused ONCE ONE Infusion Vancomycin HCl 1,000 mg/ 260 mls @ 260 mls/hr 09/24/23 15:20 09/24/23 15:39 Sodium Chloride IVPB 09/24/23 16:19 260 mls/hr ONCE ONE Administration Ondansetron HCl 4 mg 09/24/23 12:40 09/24/23 12:40 Ondansetron 2 Mg/Ml Inj IVP 09/24/23 12:41 4 mg ONCE ONE Administration Medical Decision Making Lab Data Lab results reviewed: Yes I reviewed the patient's lab results Labs: Lab Results 09/24/23 09/24/23 Range/Units 13:06 14:40 WBC 24.33 H (4.50-11.00) K/uL RBC 4.83 (4.30-5.90) m/uL Hgb 12.5 L (13.5-17.5) gm/dL Hct 39.6 (37.0-53.0) % MCV 82 (80-100) fL MCH 26 (26-34) pg MCHC 32 (32-36) gm/dL RDW Coeff of Adriana 15.6 H (11.5-15.5) % Plt Count 174 (140-440) K/uL Neut % (Auto) 85.4 H (42.0-72.0) % Lymph % (Auto) 2.8 L (20-44) % [place] % (Auto) 11.2 H (0.0-11.0) % Eos % (Auto) 0.0 (0.0-7.0) % Baso % (Auto) 0.1 (0.0-3.0) % Neut # (Auto) 20.80 H (1.7-7.0) K/uL Lymph # (Auto) 0.70 L (0.90-2.90) K/uL [place] # (Auto) 2.70 H (0.00-0.90) K/UL Eos # (Auto) 0.00 (0.00-0.50) K/uL Baso # (Auto) 0.00 (0.00-0.30) K/uL Abs Immat Gran (auto) 0.10 (0.00-0.30) K/uL Imm/Tot Granulo (auto) 0.5 % VBG pH 7.379 (7.32-7.43) VBG pCO2 42 (40-50) mmHG VBG pO2 < 30.1 (25-47) mmHG VBG HCO3 25 (21-28) mmol/L Sodium 133 L (135-149) mmol/L Potassium 4.5 (3.6-5.1) mmol/L Chloride 95 L (96-114) mmol/L Carbon Dioxide 25 (20-32) mmol/L Anion Gap 13 (7-15) mEq/L BUN 27 (7-30) mg/dL Creatinine 2.0 H (0.5-1.5) mg/dL Estimated Creat Clear 25.70 Estimated GFR 33 ml/min Glucose 367 H* (60-115) mg/dL Lactate 6.0 H* (0.5-1.9) mmol/L Calcium 8.8 (8.4-10.6) mg/dL Total Bilirubin 0.9 (0.1-1.5) mg/dL AST 19 (12-35) U/L ALT 26 (4-50) U/L Alkaline Phosphatase 88 (40-150) U/L Troponin I 0.02 (0.01-0.04) ng/mL C-Reactive Protein 23.4 H (0.5-1.0) mg/dL NT-Pro-B Natriuret Pep 3370 pg/mL Total Protein 7.0 (6.0-8.3) g/dL Albumin 4.0 (3.3-5.0) g/dL Procalcitonin 3.93 H (<0.50) ng/mL Urine Color Yellow (Yellow) Urine Appearance Cloudy A (Clear) Urine pH 6.0 (5.0-8.5) Ur Specific [place] 1.020 (1.000-1.030) Urine Protein 2+ A (Negative) Urine Glucose (UA) 2+ A (Negative) Urine Ketones Trace A (Negative) Urine Blood 3+ A (Negative) Urine Nitrite Positive A (Negative) Urine Bilirubin Negative (Negative) Urine Urobilinogen 0.2 (0.2-1.0) Ur Leukocyte Esterase 1+ A (Negative) Urine RBC 25-50 A (0-2) Urine WBC >100 A (0-5) Ur Squamous Epith Cells Few (None-Few) Urine Bacteria Many A (None) SARS-CoV-2 (PCR) Negative SARS-CoV-2 (Negative) Influenza Type A (PCR) Negative PCR FLU A (Negative) Influenza Type B (PCR) Negative PCR FLU B (Negative) RSV (PCR) Negative PCR RSV (Negative) Imaging Data Chest x-ray: Attestation: I have reviewed the pertinent imaging results. Radiologist's impression: Patient: CHERRI TELLO ASAD VINCENT Facility:?[facility] Patient ID:?[id number] Site Patient ID:?[id number]. Site :?1940 Study:?XRay Chest 1V-09/24/2023 1:16:57 PM Ordering Physician:?DR. MENDOZA Final Report: INDICATION: Fever; vomiting. COMPARISON: Chest radiograph January 20, 2023. Technique: portable AP chest. Findings: Normal size cardiac silhouette. Clear lung doran with no evidence of acute pulmonic infiltrates or CHF. No pneumothorax or pleural effusion. 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 IMPRESSION: No acute pathology. Dictated by Kyle Kirkland MD @ 09/24/2023 1:41:43 PM (Electronic Signature) CT Chest/Ab/Pelvis: Attestation: I have reviewed the pertinent imaging results. Radiologist's impression: Patient: CHERRI KAUR Facility:?[facility] Patient ID:?[id number] Site Patient ID:?[id number]. Site :?1940 Study:?CT Chest/Abd/Pelvis W/74CC [id number]/26/2024 2:47:46 PM Ordering Physician:CHERISE Final Report: INDICATION: Sepsis. TECHNIQUE: Multiplanar CT examination of the chest, abdomen and pelvis was performed after the administration 74 mL of Isovue 370 intravenous contrast. COMPARISON: CT chest abdomen pelvis 01/20/2023 FINDINGS: CHEST: Lower neck: Lower neck appears unremarkable. Cardiovascular: Normal heart size. Mild atherosclerotic calcifications of the thoracic aorta. Normal caliber of the thoracic aorta and pulmonary artery. No CT evidence of acute aortic injury. Dense coronary arterial calcifications. No large central pulmonary embolus. Mediastinum and lymph nodes: No pathologic lymphadenopathy by size criteria. Prominent mediastinal lymph nodes measuring up to 6 mm in short axis in the pretracheal region, likely reactive. Airways: The trachea remains patent and midline. Mild diffuse peribronchial wall thickening. There are several foci of mucoid impaction involving the bronchi of the bilateral lower lobes. Lungs: No focal consolidation. Linear bandlike opacification of the lung bases bilaterally, likely due to subsegmental atelectasis and/or scarring. Dependent atelectasis of the bilateral lung bases. Pleura: No pleural effusions or pneumothorax. Chest wall: No axillary lymphadenopathy. Unremarkable. Bones: No acute osseous abnormalities. No acute displaced rib fractures. Mild multilevel degeneration of the thoracic spine. ABDOMEN AND PELVIS: Liver: Unremarkable. Gallbladder: Likely severely underdistended gallbladder is not definitively identified. Biliary: No biliary ductal dilatation. Pancreas: Within normal limits. Spleen: Unremarkable. Adrenals: Unremarkable. Kidneys/ureters/bladder: Kidneys are normal in size. There is mild perinephric fat stranding, no obstructive uropathy. Mildly prominent left renal pelvis, similar to prior. No obstructive urinary calculus or hydronephrosis. The bladder is within normal limits. Underdistended bladder appears mildly diffusely thick walled. No suspicious renal masses. Gastrointestinal: Small hiatal hernia. There is mild focal rectal wall thickening. No bowel obstruction. Normal appendix. No significant colonic diverticulosis. Mild colonic stool burden. Pelvic structures: Enlarged, heterogeneous appearance to the prostate. Vascular: Severe atherosclerotic calcifications of the abdominal aorta and its branches without focal aneurysm. The portal vein remains patent. Peritoneum: Trace amount of pelvic free fluid in this patient with a ventriculoperitoneal shunt. The catheter tip descends along the right anterior chest wall and terminates within the right hemiabdomen. No drainable fluid collections. Lymph nodes: No pathologic lymphadenopathy by size criteria. Abdominal wall/soft tissues: Degenerative changes of the lumbar spine, severe degenerative disc disease at L4-5 and L5-S1. 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 No suspicious lytic or blastic lesions. No acute osseous abnormalities. Bones: No acute osseous abnormalities. IMPRESSION: 1. No focal consolidation seen to suggest pneumonia. 2. Dense coronary arterial calcifications, correlation with ASCVD evaluation is advised. 3. Focal eccentric thickening of the rectal wall, which can be seen with a proctitis. Direct visualization with colonoscopy is advised upon resolution of symptoms to exclude underlying neoplasm. 4. Heterogeneous appearance to the enlarged prostate, incompletely characterized on this examination. Correlation with serum PSA is advised. 5. Otherwise, no acute intrathoracic or abdominopelvic pathology. Please note that all CT scans at this facility use dose modulation, iterative reconstruction, and/or weight-based dosing when appropriate to reduce radiation dose to as low as reasonably achievable. Dictated by Shahid Monaco MD @ 09/24/2023 3:33:04 PM (Electronic Signature) ECG Data Attestation: I personally reviewed and interpreted this ECG as follows: (Sinus tachycardia, 121 beats per minute. Some artifact. No definitive ischemia or infarct noted. QT corrected 389 milliseconds.) Prior ECG tracings: available for review (compared to 01/20/23, has sinus tachycardia now) Discharge Plan Discharge Clinical Impression: Urinary tract infection Qualifiers: Urinary tract infection type: acute cystitis Hematuria presence: without hematuria Qualified Code(s): N30.00 - Acute cystitis without hematuria Sepsis Qualifiers: Sepsis type: sepsis due to unspecified organism Sepsis acute organ dysfunction status: with acute organ dysfunction Severe sepsis acute organ dysfunction type: unspecified Patient Disposition: Admitted As Observation
--- NOTE | 2023-09-24 12:36 | XR_ITS ---
Patient: CHERRI KAMARA [facility] Facility:?[facility] Patient ID:?[id number] Site Patient ID:?[id number]. Site :?1940 Study:?XRay-Chest 1V-09/24/2023 1:16:57 PM Ordering Physician:?DR. KAMARA Final Report: INDICATION: Fever; vomiting. COMPARISON: Chest radiograph January 20, 2023. Technique: portable AP chest. Findings: Normal size cardiac silhouette. Clear lung doran with no evidence of acute pulmonic infiltrates or CHF. No pneumothorax or pleural effusion. 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 IMPRESSION: No acute pathology. Dictated by Kyle Kirkland MD @ 09/24/2023 1:41:43 PM Signed by:?Kyle Kirkland MD @09/24/2023 1:41:43 PM (Electronic Signature)
[2023-09-24] MEDS: 0.9 % SODIUM CHLORIDE 1000 ml 1,000 ML 500 ML IV ×2 (12:40→15:11)
[2023-09-24] MEDS: ONDANSETRON 2 MG/ML inj 4 MG IVP (12:40)
[2023-09-24 13:16] LABS: HCO3 VBG 25 mmol/L (21-28); PCO2 VBG 42 mmHG (40-50); PO2 VBG < 30.1 mmHG (25-47); pH VBG 7.379 (7.32-7.43)
[2023-09-24 13:22] LABS: Basophils Percent Auto 0.1 % (0.0-3.0); Hematocrit 39.6 % (37.0-53.0); Hemoglobin* 12.5 gm/dL (13.5-17.5); Immature Granulocytes Pct Auto 0.5 %; Lymphocytes Percent Auto 2.8 % (20-44); Mean Corpuscular HGB Conc 32 gm/dL (32-36); Mean Corpuscular Hemoglobin 26 pg (26-34); Mean Corpuscular Volume 82 fL (80-100); Monocytes Percent Auto 11.2 % (0.0-11.0); Neutrophils Percent Auto 85.4 % (42.0-72.0); Platelet Count* 174 K/uL (140-440); RDW Coefficient of Variation % 15.6 % (11.5-15.5); Red Blood Count 4.83 m/uL (4.30-5.90); White Blood Count* 24.33 K/uL (4.50-11.00)
[2023-09-24 13:23] LABS: Slide Review Reflex No
[2023-09-24 13:30] LABS: Chloride* 95 mmol/L (96-114); Potassium* 4.5 mmol/L (3.6-5.1); Sodium* 133 mmol/L (135-149)
[2023-09-24 13:32] LABS: Bilirubin Total* 0.9 mg/dL (0.1-1.5); Estimated Glomerular Filt Rate 33 ml/min
[2023-09-24 13:33] LABS: Alkaline Phosphatase* 88 U/L (40-150); Anion Gap 13 mEq/L (7-15); Aspartate Amino Transferase* 19 U/L (12-35); Blood Urea Nitrogen* 27 mg/dL (7-30); Calcium* 8.8 mg/dL (8.4-10.6); Carbon Dioxide* 25 mmol/L (20-32)
[2023-09-24 13:45] LABS: Troponin I* 0.02 ng/mL (0.01-0.04)
[2023-09-24 13:50] LABS: Procalcitonin* 3.93 ng/mL (<0.50)
--- NOTE | 2023-09-24 13:53 | CT_ITS ---
Patient: CHERRI KAUR Facility:?[facility] Patient ID:?[id number] Site Patient ID:?[id number]. Site :?1940 Study:?CT-Chest/Abd/Pelvis W/74CC [id number]/26/2024 2:47:46 PM Ordering Physician:CHERISE Final Report: INDICATION: Sepsis. TECHNIQUE: Multiplanar CT examination of the chest, abdomen and pelvis was performed after the administration 74 mL of Isovue 370 intravenous contrast. COMPARISON: CT chest abdomen pelvis 01/20/2023 FINDINGS: CHEST: Lower neck: Lower neck appears unremarkable. Cardiovascular: Normal heart size. Mild atherosclerotic calcifications of the thoracic aorta. Normal caliber of the thoracic aorta and pulmonary artery. No CT evidence of acute aortic injury. Dense coronary arterial calcifications. No large central pulmonary embolus. Mediastinum and lymph nodes: No pathologic lymphadenopathy by size criteria. Prominent mediastinal lymph nodes measuring up to 6 mm in short axis in the pretracheal region, likely reactive. Airways: The trachea remains patent and midline. Mild diffuse peribronchial wall thickening. There are several foci of mucoid impaction involving the bronchi of the bilateral lower lobes. Lungs: No focal consolidation. Linear bandlike opacification of the lung bases bilaterally, likely due to subsegmental atelectasis and/or scarring. Dependent atelectasis of the bilateral lung bases. Pleura: No pleural effusions or pneumothorax. Chest wall: No axillary lymphadenopathy. Unremarkable. Bones: No acute osseous abnormalities. No acute displaced rib fractures. Mild multilevel degeneration of the thoracic spine. ABDOMEN AND PELVIS: Liver: Unremarkable. Gallbladder: Likely severely underdistended gallbladder is not definitively identified. Biliary: No biliary ductal dilatation. Pancreas: Within normal limits. Spleen: Unremarkable. Adrenals: Unremarkable. Kidneys/ureters/bladder: Kidneys are normal in size. There is mild perinephric fat stranding, no obstructive uropathy. Mildly prominent left renal pelvis, similar to prior. No obstructive urinary calculus or hydronephrosis. The bladder is within normal limits. Underdistended bladder appears mildly diffusely thick walled. No suspicious renal masses. Gastrointestinal: Small hiatal hernia. There is mild focal rectal wall thickening. No bowel obstruction. Normal appendix. No significant colonic diverticulosis. Mild colonic stool burden. Pelvic structures: Enlarged, heterogeneous appearance to the prostate. Vascular: Severe atherosclerotic calcifications of the abdominal aorta and its branches without focal aneurysm. The portal vein remains patent. Peritoneum: Trace amount of pelvic free fluid in this patient with a ventriculoperitoneal shunt. The catheter tip descends along the right anterior chest wall and terminates within the right hemiabdomen. No drainable fluid collections. Lymph nodes: No pathologic lymphadenopathy by size criteria. Abdominal wall/soft tissues: Degenerative changes of the lumbar spine, severe degenerative disc disease at L4-5 and L5-S1. 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 No suspicious lytic or blastic lesions. No acute osseous abnormalities. Bones: No acute osseous abnormalities. IMPRESSION: 1. No focal consolidation seen to suggest pneumonia. 2. Dense coronary arterial calcifications, correlation with ASCVD evaluation is advised. 3. Focal eccentric thickening of the rectal wall, which can be seen with a proctitis. Direct visualization with colonoscopy is advised upon resolution of symptoms to exclude underlying neoplasm. 4. Heterogeneous appearance to the enlarged prostate, incompletely characterized on this examination. Correlation with serum PSA is advised. 5. Otherwise, no acute intrathoracic or abdominopelvic pathology. Please note that all CT scans at this facility use dose modulation, iterative reconstruction, and/or weight-based dosing when appropriate to reduce radiation dose to as low as reasonably achievable. Dictated by Shahid Monaco MD @ 09/24/2023 3:33:04 PM ----- ADDENDUM ----- Findings communicated with Dr. White at 15:37 PM on 09/24/2023. Dictated by Shahid Monaco MD @ Sep 24 2023 3:39PM Signed by:?Shahid Monaco MD @09/24/2023 3:33:04 PM (Electronic Signature)
[2023-09-24 14:00] LABS: Glucose* 367 mg/dL (60-115)
[2023-09-24 14:01] LABS: C Reactive Protein* 23.4 mg/dL (0.5-1.0); NT Pro B Type NatriureticPept* 3370 pg/mL
[2023-09-24 14:17] LABS: Alanine Aminotransferase* 26 U/L (4-50)
[2023-09-24 14:27] LABS: PCR FLU A Negative PCR FLU A (Negative); PCR FLU B Negative PCR FLU B (Negative); PCR RSV Negative PCR RSV (Negative); SARS PCR* Negative SARS-CoV-2 (Negative)
[2023-09-24 14:47] LABS: Appearance Urine Cloudy (Clear); Bilirubin Urine Negative (Negative); Blood Urine 3+ (Negative); Color Urine Yellow (Yellow); Glucose Urine 2+ (Negative); Ketones Urine Trace (Negative); Leukocyte Esterase Urine 1+ (Negative); Nitrite Urine Positive (Negative); Protein Urine 2+ (Negative); Urobilinogen Urine 0.2 (0.2-1.0)
[2023-09-24 14:56] LABS: Bacteria Urine Many; RBC Urine 25-50 (0-2); Squamous Epithelial Cell Urine Few (None-Few); WBC Urine >100 (0-5)
[2023-09-24] MEDS: PIPERACILLIN/TAZOBACTAM 3.375 GM in 0.9 % SODIUM CHLORIDE Mini-bag 100 ML IVPB (15:11)
--- NOTE | 2023-09-24 16:06 | PM.IMHP1 ---
Hospitalist- H&P: HPI History of Present Illness Date Seen: 09/24/23 Chief complaint: Vomiting Narrative: Clinton Pierson is a 83 year old male past medical history significant for type 2 diabetes not insulin dependent, hypertension, hyperlipidemia, hypothyroidism, CKD, history of CVA is admitted to the critical care unit from the ED for further management sepsis, suspected urinary source, possible bacteremia. Patient is a resident at [facility] and reports history of nausea, vomiting, diarrhea which started yesterday. He reports he has had no further vomiting or diarrhea today. Of note, however, I am not certain of patient's ability to be a reliable historian. ED provider's note, after speaking with the nurse practitioner at [facility], reports onset of nausea, vomiting, diarrhea early this morning with an episode of vomiting while with EMS. Prior to transfer, patient was noted to hypotensive and tachycardic. Currently denies abdominal or flank pain. Denies headaches or dizziness. Denies recent known fevers though temp in the ED is 99.8?. Denies ear pain, sore throat, congestion. Denies chest pain, cough, shortness of breath. He is a patient at the [facility]. Nonsmoker. Rare alcohol use. Review of Systems Narrative: REVIEW OF SYSTEMS: Complete review of systems performed and negative unless otherwise stated in HPI or below. [facility] Medical History (Updated 09/24/23 @ 16:56 by Paloma Christina PA-C) Type 2 diabetes mellitus ?E11.9 - Type 2 diabetes mellitus without complications (ICD-10) CKD (chronic kidney disease) ?N18.9 - Chronic kidney disease, unspecified (ICD-10) BPH (benign prostatic hyperplasia) ?N40.0 - Benign prostatic hyperplasia without lower urinary tract symptoms (ICD-10) GERD (gastroesophageal reflux disease) ?K21.9 - Gastro-esophageal reflux disease without esophagitis (ICD-10) Hyperlipidemia ?E78.5 - Hyperlipidemia, unspecified (ICD-10) Hypothyroidism ?E03.9 - Hypothyroidism, unspecified (ICD-10) History of CVA (cerebrovascular accident) ?Z86.73 - Personal history of transient ischemic attack (TIA), and cerebral infarction without residual deficits (ICD-10) Social History Smoking Status: Former smoker Do you use any of these nicotine containing products: None Second hand tobacco smoke exposure: No How often do you have a drink containing alcohol: never How often do you have six or more drinks on one occasion: Never AUDIT-C Alcohol total score: 0 Non-prescribed substance use: denies use service: Yes Meds Home Medications and Allergies Home Medications Medication Instructions Recorded Confirmed Type aspirin 81 mg capsule 81 mg PO DAILY 01/19/23 01/19/23 History atorvastatin 20 mg tablet 20 mg PO DAILY 01/19/23 01/19/23 History clopidogrel 75 mg tablet 75 mg PO DAILY 01/19/23 01/19/23 History gabapentin 300 mg capsule 300 mg PO QHS 01/19/23 01/19/23 History levothyroxine 50 mcg tablet 50 mcg PO DAILY 01/19/23 01/19/23 History (Euthyrox) loratadine 10 mg tablet (Allergy 10 mg PO DAILY 01/19/23 01/19/23 History Relief (loratadine)) melatonin 3 mg capsule 3 mg PO HS PRN 01/19/23 01/19/23 History metformin .ROUTE 01/19/23 History pantoprazole 40 mg tablet,delayed 40 mg PO DAILY 01/19/23 01/19/23 History release tamsulosin 0.4 mg capsule 0.4 mg PO DAILY 01/19/23 01/19/23 History Allergies Allergy/AdvReac Type Severity Reaction Status Date / Time desoximetasone Allergy Unknown Verified 01/20/23 10:54 formaldehyde Allergy Unknown Verified 01/20/23 10:54 lisinopril Allergy Unknown Verified 01/20/23 10:54 methylisothiazolinone Allergy Unknown Verified 01/20/23 10:54 Exam Narrative: Exam Narrative: PHYSICAL EXAM General: Pleasant, very conversant, NAD, surprisingly does not appear acutely ill HEENT: Normocephalic, atraumatic, sclera white, EOMI, oral mucosa dry Cardiovascular: RRR, S1S2. No pitting edema Pulmonary: CTA bilaterally without rhonchi, rales, expiratory wheezes. No dyspnea on 1 L NC Abdominal: Soft, mildly distended, NTTP Neurological: Alert, questionable historian, cranial nerves intact Extremities: No gross joint deformity or swelling. Left-sided weakness, UE > LE c/w previous CVA Skin: Warm, dry. Const: Vital Signs, click to edit/add: Vital Signs - 24 hr 09/24/23 12:14 09/24/23 13:14 09/24/23 13:15 Temperature 99.6 F Pulse Rate 123 H 165 H Pulse Rate [Apical ] 128 H Respiratory Rate 30 H Blood Pressure Blood Pressure [Ri ght Upper Arm] 108/55 L Pulse Oximetry 92 94 Oxygen Delivery Me thod Room Air Oxygen Flow Rate 09/24/23 13:18 09/24/23 13:31 09/24/23 13:32 Temperature Pulse Rate 121 H Pulse Rate [Apical ] Respiratory Rate Blood Pressure 100/46 L Blood Pressure [Ri ght Upper Arm] 99/54 L Pulse Oximetry 91 92 Oxygen Delivery Me thod Oxygen Flow Rate 09/24/23 14:00 09/24/23 14:01 09/24/23 14:02 Temperature Pulse Rate 124 H 124 H 117 H Pulse Rate [Apical ] Respiratory Rate Blood Pressure 114/51 L Blood Pressure [Ri ght Upper Arm] Pulse Oximetry 91 91 91 Oxygen Delivery Me thod Oxygen Flow Rate 09/24/23 14:34 09/24/23 14:34 09/24/23 14:35 Temperature Pulse Rate 129 H 129 H 126 H Pulse Rate [Apical ] Respiratory Rate Blood Pressure 134/69 134/69 Blood Pressure [Ri ght Upper Arm] Pulse Oximetry 92 92 92 Oxygen Delivery Me thod Oxygen Flow Rate 09/24/23 14:40 09/24/23 15:00 09/24/23 15:01 Temperature 99.1 F Pulse Rate 127 H 127 H Pulse Rate [Apical ] Respiratory Rate Blood Pressure 118/55 L Blood Pressure [Ri ght Upper Arm] Pulse Oximetry 92 90 Oxygen Delivery Me thod Oxygen Flow Rate 09/24/23 15:30 09/24/23 15:31 09/24/23 15:42 Temperature Pulse Rate 127 H 126 H Pulse Rate [Apical ] Respiratory Rate Blood Pressure 120/66 Blood Pressure [Ri ght Upper Arm] Pulse Oximetry 88 88 93 Oxygen Delivery Me thod Nasal Cannula Oxygen Flow Rate 1 Hospitalist - H&P: Result Labs Labs: Short CBC 09/24/23 Range/Units 13:06 WBC 24.33 H (4.50-11.00) K/uL Hgb 12.5 L (13.5-17.5) gm/dL Hct 39.6 (37.0-53.0) % Plt Count 174 (140-440) K/uL BMP 09/24/23 13:06 Sodium 133 L Potassium 4.5 Chloride 95 L Carbon Dioxide 25 BUN 27 Creatinine 2.0 H Glucose 367 H* Calcium 8.8 Cardiac Enzymes 09/24/23 Range/Units 13:06 Troponin I 0.02 (0.01-0.04) ng/mL Liver Function 09/24/23 Range/Units 13:06 Total Bilirubin 0.9 (0.1-1.5) mg/dL AST 19 (12-35) U/L ALT 26 (4-50) U/L Alkaline Phosphatase 88 (40-150) U/L Albumin 4.0 (3.3-5.0) g/dL Urine 09/24/23 Range/Units 14:40 Urine Color Yellow (Yellow) Urine Appearance Cloudy A (Clear) Urine pH 6.0 (5.0-8.5) Ur Specific [place] 1.020 (1.000-1.030) Urine Protein 2+ A (Negative) Urine Glucose (UA) 2+ A (Negative) ECG Attestation: I personally reviewed and interpreted this ECG as follows: Interpretation: Sinus tachycardia, vent rate 121, QTC [address] Chest/Ab/Pelvis: Attestation: I have reviewed the pertinent imaging results. Radiologist's impression: TECHNIQUE: Multiplanar CT examination of the chest, abdomen and pelvis was performed after the administration 74 mL of Isovue 370 intravenous contrast. COMPARISON: CT chest abdomen pelvis 01/20/2023 FINDINGS: CHEST: Lower neck: Lower neck appears unremarkable. Cardiovascular: Normal heart size. Mild atherosclerotic calcifications of the thoracic aorta. Normal caliber of the thoracic aorta and pulmonary artery. No CT evidence of acute aortic injury. Dense coronary arterial calcifications. No large central pulmonary embolus. Mediastinum and lymph nodes: No pathologic lymphadenopathy by size criteria. Prominent mediastinal lymph nodes measuring up to 6 mm in short axis in the pretracheal region, likely reactive. Airways: The trachea remains patent and midline. Mild diffuse peribronchial wall thickening. There are several foci of mucoid impaction involving the bronchi of the bilateral lower lobes. Lungs: No focal consolidation. Linear bandlike opacification of the lung bases bilaterally, likely due to subsegmental atelectasis and/or scarring. Dependent atelectasis of the bilateral lung bases. Pleura: No pleural effusions or pneumothorax. Chest wall: No axillary lymphadenopathy. Unremarkable. Bones: No acute osseous abnormalities. No acute displaced rib fractures. Mild multilevel degeneration of the thoracic spine. ABDOMEN AND PELVIS: Liver: Unremarkable. Gallbladder: Likely severely underdistended gallbladder is not definitively identified. Biliary: No biliary ductal dilatation. Pancreas: Within normal limits. Spleen: Unremarkable. Adrenals: Unremarkable. Kidneys/ureters/bladder: Kidneys are normal in size. There is mild perinephric fat stranding, no obstructive uropathy. Mildly prominent left renal pelvis, similar to prior. No obstructive urinary calculus or hydronephrosis. The bladder is within normal limits. Underdistended bladder appears mildly diffusely thick walled. No suspicious renal masses. Gastrointestinal: Small hiatal hernia. There is mild focal rectal wall thickening. No bowel obstruction. Normal appendix. No significant colonic diverticulosis. Mild colonic stool burden. Pelvic structures: Enlarged, heterogeneous appearance to the prostate. Vascular: Severe atherosclerotic calcifications of the abdominal aorta and its branches without focal aneurysm. The portal vein remains patent. Peritoneum: Trace amount of pelvic free fluid in this patient with a ventriculoperitoneal shunt. The catheter tip descends along the right anterior chest wall and terminates within the right hemiabdomen. No drainable fluid collections. Lymph nodes: No pathologic lymphadenopathy by size criteria. Abdominal wall/soft tissues: Degenerative changes of the lumbar spine, severe degenerative disc disease at L4-5 and L5-S1. 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 No suspicious lytic or blastic lesions. No acute osseous abnormalities. Bones: No acute osseous abnormalities. IMPRESSION: 1. No focal consolidation seen to suggest pneumonia. 2. Dense coronary arterial calcifications, correlation with ASCVD evaluation is advised. 3. Focal eccentric thickening of the rectal wall, which can be seen with a proctitis. Direct visualization with colonoscopy is advised upon resolution of symptoms to exclude underlying neoplasm. 4. Heterogeneous appearance to the enlarged prostate, incompletely characterized on this examination. Correlation with serum PSA is advised. 5. Otherwise, no acute intrathoracic or abdominopelvic pathology. Chest x-ray: Attestation: I have reviewed the pertinent imaging results. Radiologist's impression: Technique: portable AP chest. Findings: Normal size cardiac silhouette. Clear lung doran with no evidence of acute pulmonic infiltrates or CHF. No pneumothorax or pleural effusion. 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 IMPRESSION: No acute pathology. Assessment and Plan Assessment and plan (1) Sepsis: Problem comment: Leukocytosis, WBC > 85109 with left shift, lactate 6, mild fever <100, tachycardic, tachypneic, previously hypotensive (improving), VBG unremarkable Suspected urinary source, UC pending, likely possibly bacteremic, BC x2 pending CT without focal findings of chest abdomen pelvis, CXR unremarkable for acute pathology Continue IV Zosyn and vancomycin as initiated in ED. Reviewed POLST with patient which indicates oral antibiotics only, however patient verbalizes wish to continue with IV antibiotics at this time Continue IV fluids, received 2 L in ED, 30ml/kg Telemetry. Confirmed with patient, status DNR/DNI Repeat lactate, follow CBC, UC/BC pending Status: Acute (2) Urinary tract infection: Problem comment: Suspected urosepsis. UC pending. Continue management as above Remote history staphylococcus warneri, 2021, sensitive to vancomycin Status: Acute (3) Rectal abnormality: Problem comment: CT with incidental finding showing focal eccentric thickening of the rectal wall, which can be seen with a proctitis Loose stools reported earlier today Recommend outpatient follow-up for direct visualization with colonoscopy upon resolution of symptoms to exclude underlying neoplasm Status: Acute (4) CKD (chronic kidney disease): Problem comment: Creatinine 2.0, baseline 1.17-1.41 Avoid nephrotoxic medications, renally dose antibiotics, continue to monitor, rechecking BMP in am Status: Acute (5) Type 2 diabetes mellitus: Problem comment: Most recent A1c (07/23/23) 8.8, up from 6.8 in March Hold metformin Glucose checks ACHS, ISS, diabetic diet Status: Acute (6) Hypothyroidism: Problem comment: Continue levothyroxine Status: Acute (7) Hyperlipidemia: Problem comment: Continue statin Status: Acute Total Time Spent Total Time Spent: Total time spent caring for the patient today was 45 minutes. This includes time spent for the visit reviewing the chart, time spent during the visit, time spent after the visit and documentation and planning in coordination of care.
[2023-09-24] MEDS: ACETAMINOPHEN 325 MG TABLET 650 MG PO (16:25)
[2023-09-24 17:09] LABS: Lactate* 3.8 mmol/L (0.5-1.9)
[2023-09-24] MEDS: 0.9 % SODIUM CHLORIDE 1000 ml 1,000 ML 125 ML IV (17:20)
[2023-09-24] MEDS: PIPERACILLIN/TAZOBACTAM 2.25 GM in 0.9 % SODIUM CHLORIDE Mini-bag 100 ML IVPB ×2 (17:36→23:34)
[2023-09-24] MEDS: INSULIN ASPART 100 UNIT/ML SUBCUT (18:48)
[2023-09-24] MEDS: GABAPENTIN 300 MG CAPSULE PO (20:53)
[2023-09-24] MEDS: ENOXAPARIN 30 MG/0.3ML INJ SUBCUT (20:54)
[2023-09-24 21:10] LABS: Lactate* 3.3 mmol/L (0.5-1.9)
--- NOTE | 2023-09-24 22:46 | PC.NURSE ---
Shift note: The pt has been pleasant and cooperative; alert and oriented to place, situations, time and person ; occasional forgetful. Denied chest pain. Short of breath noted with exertion. No cough noted this shift; Spo2 has been in the low 90s on 2L of oxygen via NC. The pt had temp of 102.5 degree F ( MD was notified); Temp was rechecked after Tylenol was given 100, 98.0, 98.4 Degree F. The pt has been having frequent small diarrhea, redness to the [place] area noted; barrier cream has been applied. Denied abdominal pain, nausea or vomiting. The pt has been tolerating IV ABX without any complications. The pt was stating to urinate frequently but he couldn't go; bladder scanned for 393 ml; straight cath for 350 ml; the pt has been resting comfortably since 350 ml of urine was drained.
[2023-09-25] VITALS (23 sets, daily range): BP systolic 110–144; BP diastolic 49–108; PULSE 92–118; RESP 18–22; TEMP 36.4–39.1; O2SAT 89–95
[2023-09-25] MEDS: ACETAMINOPHEN 325 MG TABLET 1000 MG PO (00:15)
[2023-09-25] MEDS: 0.9 % SODIUM CHLORIDE 1000 ml 1,000 ML 125 ML IV (02:25)
[2023-09-25 05:15] LABS: C.Difficile Negative (Negative); CDIFFEPI 027 PRESUMPTIVE NEGATIVE (Negative)
[2023-09-25] MEDS: PIPERACILLIN/TAZOBACTAM 2.25 GM in 0.9 % SODIUM CHLORIDE Mini-bag 100 ML IVPB ×4 (05:26→23:27)
--- NOTE | 2023-09-25 06:07 | PC.NURSE ---
Shift note: Febrile overnight 100.6 temporal/102.4 oral, Tylenol administered, down to 98.3 temporal. Frequent incontinent loose stools, c-diff negative. Pt c/o inability to void, bladder scan shows about 300ml, no cath performed, 1 episode of urine incontinence during this shift, repeat scan this morning shows no more than 300ml.
[2023-09-25] MEDS: LEVOTHYROXINE 50 MCG TABLET PO (06:40)
[2023-09-25] MEDS: OMEPRAZOLE 20 MG CAPSULE DR 40 MG PO (06:40)
[2023-09-25 07:19] LABS: Lactate* 2.1 mmol/L (0.5-1.9)
[2023-09-25 07:21] LABS: Hematocrit 41.1 % (37.0-53.0); Mean Corpuscular HGB Conc 32 gm/dL (32-36); Mean Corpuscular Hemoglobin 26 pg (26-34); Mean Corpuscular Volume 83 fL (80-100); Platelet Count* 140 K/uL (140-440); Red Blood Count 4.97 m/uL (4.30-5.90); White Blood Count* 23.27 K/uL (4.50-11.00)
[2023-09-25 07:22] LABS: Slide Review Reflex No
[2023-09-25 07:37] LABS: Chloride* 106 mmol/L (96-114); Potassium* 4.1 mmol/L (3.6-5.1); Sodium* 138 mmol/L (135-149)
[2023-09-25 07:40] LABS: Creatinine* 1.7 mg/dL (0.5-1.5); Est. Creatinine Clearance* 30.23; Estimated Glomerular Filt Rate 40 ml/min
[2023-09-25 07:41] LABS: Anion Gap 8 mEq/L (7-15); Blood Urea Nitrogen* 28 mg/dL (7-30); Calcium* 8.2 mg/dL (8.4-10.6); Carbon Dioxide* 24 mmol/L (20-32); Glucose* 239 mg/dL (60-115); Magnesium* 1.2 mg/dL (1.5-2.6)
--- NOTE | 2023-09-25 07:44 | P.IMPN_ITS ---
Progress Note: A&P Assessment and plan (1) Sepsis: Problem details: met sepsis criteria; lactate downtrending. WBC still quite elevated. febrile, tachycardia. BC growing gram pos in all bottles, as is UC. high grade bacteremia, possible MSSA or MRSA is poor prognostic sign. Clinically patient is remarkable. -D5W bicarb (pH 7.3 this am), hydrocortisone q8, abx, ramsay, oxygen. CT without focal findings of chest abdomen pelvis, CXR unremarkable for acute pathology; presume urosepsis Continue IV Zosyn and vancomycin as initiated in ED. Reviewed POLST with patient which indicates oral antibiotics only, however patient verbalizes wish to continue with IV antibiotics at this time - no he roic interventions - repeats am of 09/24 - no transfer. Continue IV fluids support - D5W with Bicarb infusing. replace mag. add albumin. Status: Acute (2) Bacteremia due to Gram-positive bacteria: Problem details: as above Status: Acute (3) Urinary tract infection: Problem details: urosepsis. 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 Status: Acute (4) Hypothyroidism: Problem details: Continue levothyroxine Status: Acute (5) CKD (chronic kidney disease): Problem details: creatinine: 2.0 --> 1.7 Avoid nephrotoxic medications, renally dose antibiotics, trend Status: Acute (6) Type 2 diabetes mellitus: Problem details: Most recent A1c (07/23/23) 8.8, up from 6.8 in March Hold metformin Glucose checks ACHS, ISS, diabetic diet Status: Acute (7) Hyperlipidemia: Problem details: Continue statin Status: Acute (8) Rectal abnormality: Problem details: CT with incidental finding showing focal eccentric thickening of the rectal wall, which can be seen with a proctitis Loose stools reported earlier today Recommend outpatient follow-up for direct visualization with colonoscopy upon re solution of symptoms to exclude underlying neoplasm Status: Acute Subjective Date Seen: 09/25/23 Interval history: Daily Progress Note - Hospital Medicine Day #: 2 CC: Gram positive sepsis OVERNIGHT UPDATES FROM STAFF & MED, LAB, IMAGING UPDATES Some mild respiratory distress. Weakness. Mentally insightful coherent. No significant pain WBC count is essentially the same 24.3-. Hemoglobin is stable Platelets are 140 Differential yesterday was majority neutrophils Creatinine started at 2.0 --> 1.7 Electrolytes: all stable; improved Troponin negative in the ER yesterday, 0.04 this am Liver enzymes normal yesterday in the ED CRP 23.4 --> 42.6 Procal 3.93 --> 7.16 Lactate is downtrending 6.0 -->3.8 --> 3.3 --> 2.1 Is unclear if his urine demonstrates a colonization, clearly has evidence inflammation and pyuria. (100K gram pos cocci) C diff negative Respiratory screen negative Blood glucose bedside checks 287, 255, 239, 240 Echo 01/20 Final Impressions: 1. Normal left ventricular size, normal wall thickness, normal global systolic function, calculated EF of 62 %. 2. The inferior vena cava is normal sized, respiratory size variation less than 50%. ? Chamber Sizes and Function Normal left ventricular size, normal wall thickness, normal global systolic function, calculated EF of 62 %. Left atrial size is not well visualized. Right ventricular cavity size is normal, global systolic RV function is normal. RV wall thickness is normal. The right atrium is not well visualized. The pulmonary artery is of normal size and origin. The sinus of Valsalva is normal sized. The ascending aorta is normal sized. CXR this am: IMPRESSION: Vascular congestion pattern without overt edema. This may represent early/mild congestive heart failure. No focal consolidation. Objective: alert, doesn't look near as ill as you'd expect for given medical findings. Vitals: see above Lungs: Clear. abdomen: protuberant Cardiac: S1S2. legs: mild edmea Disposition/Potential discharge - Likely to return to previous living situation. Today I spent 50minutes seeing the patient, reviewing Expanse and EPIC notes/diagnostics, discussing the care plan with our care time that includes social work, PT/OT, pharmacy, RT, nursing home and documenting my impressions and plan in the medical record. Exam Const: Vital Signs, click to edit/add: Vital Signs - 24 hr 09/24/23 12:14 09/24/23 13:14 09/24/23 13:15 Temperature 99.6 F Pulse Rate 123 H 165 H Pulse Rate [Apical ] 128 H Pulse Rate [Right Pulse Oximeter] Respiratory Rate 30 H Blood Pressure Blood Pressure [Ri ght Arm] Blood Pressure [Ri ght Upper Arm] 108/55 L Pulse Oximetry 92 94 Oxygen Delivery Me thod Room Air Oxygen Flow Rate 09/24/23 13:18 09/24/23 13:31 09/24/23 13:32 Temperature Pulse Rate 121 H Pulse Rate [Apical ] Pulse Rate [Right Pulse Oximeter] Respiratory Rate Blood Pressure 100/46 L Blood Pressure [Ri ght Arm] Blood Pressure [Ri ght Upper Arm] 99/54 L Pulse Oximetry 91 92 Oxygen Delivery Me thod Oxygen Flow Rate 09/24/23 14:00 09/24/23 14:01 09/24/23 14:02 Temperature Pulse Rate 124 H 124 H 117 H Pulse Rate [Apical ] Pulse Rate [Right Pulse Oximeter] Respiratory Rate Blood Pressure 114/51 L Blood Pressure [Ri ght Arm] Blood Pressure [Ri ght Upper Arm] Pulse Oximetry 91 91 91 Oxygen Delivery Me thod Oxygen Flow Rate 09/24/23 14:34 09/24/23 14:34 09/24/23 14:35 Temperature Pulse Rate 129 H 129 H 126 H Pulse Rate [Apical ] Pulse Rate [Right Pulse Oximeter] Respiratory Rate Blood Pressure 134/69 134/69 Blood Pressure [Ri ght Arm] Blood Pressure [Ri ght Upper Arm] Pulse Oximetry 92 92 92 Oxygen Delivery Me thod Oxygen Flow Rate 09/24/23 14:40 09/24/23 15:00 09/24/23 15:01 Temperature 99.1 F Pulse Rate 127 H 127 H Pulse Rate [Apical ] Pulse Rate [Right Pulse Oximeter] Respiratory Rate Blood Pressure 118/55 L Blood Pressure [Ri ght Arm] Blood Pressure [Ri ght Upper Arm] Pulse Oximetry 92 90 Oxygen Delivery Me thod Oxygen Flow Rate 09/24/23 15:30 09/24/23 15:31 09/24/23 15:32 Temperature Pulse Rate 127 H 126 H 128 H Pulse Rate [Apical ] Pulse Rate [Right Pulse Oximeter] Respiratory Rate Blood Pressure 120/66 Blood Pressure [Ri ght Arm] Blood Pressure [Ri ght Upper Arm] Pulse Oximetry 88 88 89 Oxygen Delivery Me thod Nasal Cannula Oxygen Flow Rate 1 09/24/23 15:42 09/24/23 16:00 09/24/23 16:01 Temperature Pulse Rate 131 H 131 H Pulse Rate [Apical ] Pulse Rate [Right Pulse Oximeter] Respiratory Rate Blood Pressure 127/57 L Blood Pressure [Ri ght Arm] Blood Pressure [Ri ght Upper Arm] Pulse Oximetry 93 92 94 Oxygen Delivery Me thod Nasal Cannula Nasal Cannula Nasal Cannula Oxygen Flow Rate 1 1 1 09/24/23 16:02 09/24/23 16:09 09/24/23 16:30 Temperature 99.8 F H 102.5 F H Pulse Rate 134 H Pulse Rate [Apical ] Pulse Rate [Right Pulse Oximeter] Respiratory Rate 20 Blood Pressure Blood Pressure [Ri ght Arm] 137/65 Blood Pressure [Ri ght Upper Arm] Pulse Oximetry 94 91 Oxygen Delivery Me thod Nasal Cannula Oxygen Flow Rate 1 09/24/23 17:01 09/24/23 17:36 09/24/23 19:00 Temperature Pulse Rate 109 H Pulse Rate [Apical ] Pulse Rate [Right Pulse Oximeter] Respiratory Rate 20 Blood Pressure Blood Pressure [Ri ght Arm] Blood Pressure [Ri ght Upper Arm] Pulse Oximetry Oxygen Delivery Me thod Nasal Cannula Nasal Cannula Oxygen Flow Rate 2 2 09/24/23 19:00 09/24/23 21:00 09/24/23 22:20 Temperature 98 F 98 F 98.4 F Pulse Rate Pulse Rate [Apical ] Pulse Rate [Right Pulse Oximeter] 109 H 115 H 115 H Respiratory Rate 20 20 20 Blood Pressure Blood Pressure [Ri ght Arm] 105/59 L 114/54 L 119/81 Blood Pressure [Ri ght Upper Arm] Pulse Oximetry 93 92 95 Oxygen Delivery Me thod Nasal Cannula Nasal Cannula Nasal Cannula Oxygen Flow Rate 2 2 2 09/24/23 23:00 09/24/23 23:00 09/25/23 00:00 Temperature 100.6 F H Pulse Rate 114 H Pulse Rate [Apical ] Pulse Rate [Right Pulse Oximeter] 120 H 118 H Respiratory Rate 20 22 Blood Pressure Blood Pressure [Ri ght Arm] 139/85 Blood Pressure [Ri ght Upper Arm] Pulse Oximetry 95 Oxygen Delivery Me thod Nasal Cannula Oxygen Flow Rate 2 09/25/23 00:15 09/25/23 02:00 09/25/23 03:00 Temperature 102.4 F H 97.5 F L Pulse Rate Pulse Rate [Apical ] Pulse Rate [Right Pulse Oximeter] 101 H 96 Respiratory Rate 18 20 Blood Pressure Blood Pressure [Ri ght Arm] Blood Pressure [Ri ght Upper Arm] Pulse Oximetry 94 Oxygen Delivery Me thod Nasal Cannula Oxygen Flow Rate 2 09/25/23 03:00 09/25/23 04:00 09/25/23 05:48 Temperature 98.1 F 98.3 F Pulse Rate 113 H Pulse Rate [Apical ] Pulse Rate [Right Pulse Oximeter] 95 103 H Respiratory Rate 20 20 Blood Pressure Blood Pressure [Ri ght Arm] 115/74 116/63 Blood Pressure [Ri ght Upper Arm] Pulse Oximetry 95 94 Oxygen Delivery Me thod Nasal Cannula Nasal Cannula Oxygen Flow Rate 2 2 Labs Labs: Laboratory Results - last 24 hr 09/24/23 09/24/23 09/24/23 13:06 14:40 17:04 WBC 24.33 H RBC 4.83 Hgb 12.5 L Hct 39.6 MCV 82 MCH 26 MCHC 32 RDW Coeff of Adriana 15.6 H Plt Count 174 Neut % (Auto) 85.4 H Lymph % (Auto) 2.8 L [place] % (Auto) 11.2 H Eos % (Auto) 0.0 Baso % (Auto) 0.1 Neut # (Auto) 20.80 H Lymph # (Auto) 0.70 L [place] # (Auto) 2.70 H Eos # (Auto) 0.00 Baso # (Auto) 0.00 Abs Immat Gran (auto) 0.10 Imm/Tot Granulo (auto) 0.5 VBG pH 7.379 VBG pCO2 42 VBG pO2 < 30.1 VBG HCO3 25 Sodium 133 L Potassium 4.5 Chloride 95 L Carbon Dioxide 25 Anion Gap 13 BUN 27 Creatinine 2.0 H Estimated Creat Clear 25.70 Estimated GFR 33 Glucose 367 H* Lactate 6.0 H* 3.8 H Calcium 8.8 Total Bilirubin 0.9 AST 19 ALT 26 Alkaline Phosphatase 88 Troponin I 0.02 C-Reactive Protein 23.4 H NT-Pro-B Natriuret Pep 3370 Total Protein 7.0 Albumin 4.0 Procalcitonin 3.93 H Urine Color Yellow Urine Appearance Cloudy A Urine pH 6.0 Ur Specific [place] 1.020 Urine Protein 2+ A Urine Glucose (UA) 2+ A Urine Ketones Trace A Urine Blood 3+ A Urine Nitrite Positive A Urine Bilirubin Negative Urine Urobilinogen 0.2 Ur Leukocyte Esterase 1+ A Urine RBC 25-50 A Urine WBC >100 A Ur Squamous Epith Cells Few Urine Bacteria Many A Stl C. diff Tox B Gene Stl C. diff 027-NAP1-BI SARS-CoV-2 (PCR) Negative SARS-CoV-2 Influenza Type A (PCR) Negative PCR FLU A Influenza Type B (PCR) Negative PCR FLU B RSV (PCR) Negative PCR RSV 09/24/23 09/25/23 09/25/23 21:05 03:00 07:13 WBC 23.27 H RBC 4.97 Hgb 13.0 L Hct 41.1 MCV 83 MCH 26 MCHC 32 RDW Coeff of Adriana Plt Count 140 Neut % (Auto) Lymph % (Auto) [place] % (Auto) Eos % (Auto) Baso % (Auto) Neut # (Auto) Lymph # (Auto) [place] # (Auto) Eos # (Auto) Baso # (Auto) Abs Immat Gran (auto) Imm/Tot Granulo (auto) VBG pH VBG pCO2 VBG pO2 VBG HCO3 Sodium Potassium Chloride Carbon Dioxide Anion Gap BUN Creatinine Estimated Creat Clear Estimated GFR Glucose Lactate 3.3 H 2.1 H Calcium Total Bilirubin AST ALT Alkaline Phosphatase Troponin I C-Reactive Protein NT-Pro-B Natriuret Pep Total Protein Albumin Procalcitonin Urine Color Urine Appearance Urine pH Ur Specific [place] Urine Protein Urine Glucose (UA) Urine Ketones Urine Blood Urine Nitrite Urine Bilirubin Urine Urobilinogen Ur Leukocyte Esterase Urine RBC Urine WBC Ur Squamous Epith Cells Urine Bacteria Stl C. diff Tox B Gene Negative Stl C. diff [id number]-NAP1-BI PRESUMPTIVE NEGATIVE SARS-CoV-2 (PCR) Influenza Type A (PCR) Influenza Type B (PCR) RSV (PCR)
--- NOTE | 2023-09-25 07:47 | XR_ITS ---
Patient: CHERRI KAUR Facility:?[facility] Patient ID:?[id number] Site Patient ID:?[id number]. Site :?[id number] Study:?XRay-Chest 1V-09/25/2023 8:14:48 AM Ordering Physician:?DR. SEYMOUR Final Report: INDICATION: Oxygen requirement COMPARISON: September 24, 2023 TECHNIQUE: Single-view study September 25, 2023 FINDINGS: TUBES AND LINES: Right IJ catheter ending in the proximal SVC HEART AND MEDIASTINUM: The heart size is normal. The mediastinal contour appears normal for patient age. LUNGS AND PLEURAL SPACES: Vascular congestion pattern without overt edema. This may represent early/mild congestive heart failure.No focal consolidation. Normal pleural spaces. OSSEOUS STRUCTURES: Age-appropriate appearance. No acute focal finding. IMPRESSION: Vascular congestion pattern without overt edema. This may represent early/mild congestive heart failure. No focal consolidation. Dictated by Fito Poe MD @ 09/25/2023 8:40:58 AM ----- ADDENDUM ----- The line felt to represent a right IJ catheter is said to be a [employer] shunt. Much of this projects over the mediastinum so I do not see the course of a beyond the SVC. However, on review of more remote studies dating back to 2020, this is indeed [employer] shunt catheter. Dictated by Fito Poe MD @ Sep 26 2023 9:41AM Signed by:?Fito Poe MD @09/25/2023 8:40:58 AM (Electronic Signature)
[2023-09-25 07:56] LABS: HCO3 VBG 24 mmol/L (21-28); PCO2 VBG 48 mmHG (40-50); PO2 VBG 31.4 mmHG (25-47); Procalcitonin* 7.16 ng/mL (<0.50); pH VBG 7.304 (7.32-7.43)
[2023-09-25 07:59] LABS: NT Pro B Type NatriureticPept* 6460 pg/mL
[2023-09-25 08:43] LABS: Troponin I* 0.04 ng/mL (0.01-0.04)
[2023-09-25 08:48] LABS: C Reactive Protein* 42.6 mg/dL (0.5-1.0)
[2023-09-25] MEDS: HYDROCORTISONE SOD SUCCINATE 50 MG/ML inj 100 MG IVP ×2 (08:48→16:24)
[2023-09-25] MEDS: MAGNESIUM IV 2 GM/50 ML PIGGYBACK IVPB (08:49)
--- NOTE | 2023-09-25 09:19 | REH.OT ---
OT/PT evals on hold today per .
--- NOTE | 2023-09-25 09:21 | NUTR.NU ---
RDN with MD consult. Patient is not appropriate to visit with at this time. RDN will reassess and attempt to visit at later date if appropriate.
[2023-09-25] MEDS: LOPERAMIDE HCL 2 MG CAPSULE PO ×3 (09:38→22:32)
[2023-09-25] MEDS: ALBUMIN HUMAN 25% 25 GM/100 ML VIAL IVPB (09:39)
[2023-09-25] MEDS: TAMSULOSIN HCL 0.4 MG CAPSULE PO (09:41)
[2023-09-25] MEDS: CLOPIDOGREL 75 MG TABLET PO (09:41)
[2023-09-25] MEDS: INSULIN ASPART 100 UNIT/ML SUBCUT ×4 (09:42→20:23)
[2023-09-25] MEDS: ASPIRIN 81 MG TABLET EC PO (09:42)
[2023-09-25] MEDS: ATORVASTATIN 10 MG TABLET 20 MG PO (09:42)
[2023-09-25] MEDS: LORATADINE 10 MG TABLET PO (09:42)
--- NOTE | 2023-09-25 11:02 | PC.SOCIAL ---
Discharge planning: making line worker checked in with Justina at [facility] and she stated that pt lives in the care center and is on a bed hold. Justina asked for the social work department to keep [facility] updated with his condition. Social work to follow-up as needed.
--- NOTE | 2023-09-25 15:00 | XR_ITS ---
Patient: CHERRI KAUR Facility:?[facility] Patient ID:?[id number] Site Patient ID:?[id number]. Site :?[id number] Study:?XRay-Chest PORTABLE-09/25/2023 4:14:42 PM Ordering Physician:?DR. SEYMOUR Final Report: INDICATION: Dyspnea. TECHNIQUE: Chest radiograph, 1 view. COMPARISON: Chest radiograph 09/25/2023. FINDINGS: Lines/tubes: Right PICC with tip terminating in the lower SVC. Cardiovascular/Mediastinum: Normal heart size. Atherosclerotic calcifications of the aortic arch. Lungs: No focal consolidation. Linear band like opacification of the lung bases, stable, likely subsegmental atelectasis and/or scarring. Airways: Trachea remains midline. Pleura: No pleural effusions or pneumothorax. Bones: No acute osseous abnormalities. Suture anchors in the right humeral head. Upper abdomen: Unremarkable. IMPRESSION: Interval placement of a right-sided PICC terminating in satisfactory position. No pneumothorax. Dictated by Shahid Monaco MD @ 09/25/2023 4:51:21 PM Signed by:?Shahid Monaco MD @09/25/2023 4:51:21 PM (Electronic Signature)
--- NOTE | 2023-09-25 15:38 | PC.NURSE ---
shift note: elevated HR and BP this a.m. pt diaphoretic and pale. Pt stating increased urgency but unable to void this a.m. Dr. Anderson updated on pt condition and orders for EKG,chest xray,magnesium, albumin,solu cortef, and bicab with dextrose. IV x2 placed rt hand and upper arm. temp this a.m 99.2. LS crkls throughout with audible wet breath sounds and wheezing. ramsay also placed per d.o. BP's and HR returning to WNL by late morning. LS this afternoon Lt mid & lower crkls posterior. sats 90-92% on 2L O2. edema to u/w and upper torso palpable but not pitting. PICC stat contacted. [id number] clr light tea color urine. rectum & scrotal redness. 2 small loose incont BM's
[2023-09-25] MEDS: VANCOMYCIN 750 MG in 0.9 % SODIUM CHLORIDE 250 ml 250 ML 255 MG IVPB (16:28)
[2023-09-25 17:08] LABS: HCO3 VBG 26 mmol/L (21-28); PCO2 VBG 40 mmHG (40-50); PO2 VBG 45.9 mmHG (25-47); pH VBG 7.426 (7.32-7.43)
[2023-09-25 17:09] LABS: Lactate* 1.6 mmol/L (0.5-1.9)
[2023-09-25 17:24] LABS: Chloride* 101 mmol/L (96-114); Sodium* 133 mmol/L (135-149)
[2023-09-25 17:25] LABS: Potassium* 3.5 mmol/L (3.6-5.1)
[2023-09-25 17:27] LABS: Creatinine* 1.5 mg/dL (0.5-1.5); Est. Creatinine Clearance* 34.26; Estimated Glomerular Filt Rate 46 ml/min
[2023-09-25 17:28] LABS: Anion Gap 3 mEq/L (7-15); Blood Urea Nitrogen* 24 mg/dL (7-30); Calcium* 7.4 mg/dL (8.4-10.6); Carbon Dioxide* 29 mmol/L (20-32); Magnesium* 1.6 mg/dL (1.5-2.6)
[2023-09-25 17:48] LABS: Glucose* 501 mg/dL (60-115)
[2023-09-25] MEDS: POTASSIUM CHLORIDE 10 MEQ CAPSULE ER 20 MEQ PO (19:33)
[2023-09-25] MEDS: GABAPENTIN 300 MG CAPSULE PO (20:21)
[2023-09-25] MEDS: ENOXAPARIN 30 MG/0.3ML INJ SUBCUT (20:22)
[2023-09-25] MEDS: SODIUM CHLORIDE 0.9 % (FLUSH) 10 ML SYRINGE 5 ML IVF (20:27)
--- NOTE | 2023-09-25 21:36 | PC.NURSE ---
Patient's niece, Drea, called for an update on patient's condition. According to PHI, she was not on the authorization list so a verbal consent was obtained from patient. Nurse School answered all of Drea's questions appropriately and she verbalized understanding.
--- NOTE | 2023-09-25 22:45 | PC.NURSE ---
End of shift [id number]: Pt is A&O x4 and VSS. Low-grade fever x1 this afternoon, T-max 99.3 and resolved on it?s own. Pt is on bedrest orders with TR as he requests. Pt is incontinent of stool & has had x4 loose stools this shift; PRN Imodium given last @ 2230. Redness and extreme tenderness to buttocks & scrotum in which Zinc oxide cream was ordered BID. Ferguson catheter intact & patent, draining clear yellow urine. Total [id number] mL. Pt has bloody drainage from his penis around catheter insertion site from trauma of multiple straight caths. Pt continues to deny having any pain, nausea or dyspnea. LS fine crackles in posterior bases with audible expiratory wheezing. Abd distended & firm, pt denies tenderness. K+ level 3.5 this afternoon- started Potass chloride 20 mEq BID. Blood sugars have been trending upward. 1700 check: 483; 10 units Novolog given per MD order. 2100 check: 431; 12 units Novolog given & MD ordered 10 units Levemir qHS. Blood culture & urine culture growing gram positive cocci in clusters. Pt nares positive for MRSA this evening so contact isolation precautions were initiated. Pt takes meds whole with yogurt or vanilla pudding. Plan to have an ECHO done tomorrow, 09/25. Discharge back to [facility] when medically appropriate. ?
[2023-09-26] VITALS (21 sets, daily range): BP systolic 113–160; BP diastolic 64–96; PULSE 84–106; RESP 18–24; TEMP 36.6–37.9; O2SAT 90–96
[2023-09-26] MEDS: HYDROCORTISONE SOD SUCCINATE 50 MG/ML inj 100 MG IVP (00:21)
[2023-09-26] MEDS: SODIUM CHLORIDE 0.9 % (FLUSH) 10 ML SYRINGE 5 ML IVF ×3 (00:22→21:51)
[2023-09-26] MEDS: PIPERACILLIN/TAZOBACTAM 2.25 GM in 0.9 % SODIUM CHLORIDE Mini-bag 100 ML IVPB (05:40)
[2023-09-26 05:43] LABS: HCO3 VBG 34 mmol/L (21-28); PCO2 VBG 50 mmHG (40-50); PO2 VBG 40.7 mmHG (25-47); pH VBG 7.441 (7.32-7.43)
[2023-09-26 05:48] LABS: Hematocrit 33.4 % (37.0-53.0); Hemoglobin* 10.8 gm/dL (13.5-17.5); Mean Corpuscular HGB Conc 32 gm/dL (32-36); Mean Corpuscular Hemoglobin 26 pg (26-34); Mean Corpuscular Volume 81 fL (80-100); Platelet Count* 130 K/uL (140-440); Red Blood Count 4.11 m/uL (4.30-5.90); White Blood Count* 21.67 K/uL (4.50-11.00)
--- NOTE | 2023-09-26 05:55 | PC.NURSE ---
Shift note: Afebrile overnight, 3 small green stools. Yellow pale urine, output adequate, see I&Os. HR 80-90ies, still on 2L supplemental O2 via NC. Pt c/o pain in scrotum area, barrier medicated cream applied.
[2023-09-26 06:06] LABS: Albumin* 3.1 g/dL (3.3-5.0); Chloride* 98 mmol/L (96-114); Sodium* 137 mmol/L (135-149)
[2023-09-26 06:08] LABS: Bilirubin Total* 0.4 mg/dL (0.1-1.5); Creatinine* 1.2 mg/dL (0.5-1.5); Est. Creatinine Clearance* 42.83; Estimated Glomerular Filt Rate 60 ml/min
[2023-09-26 06:09] LABS: Alanine Aminotransferase* 11 U/L (4-50); Alkaline Phosphatase* 82 U/L (40-150); Anion Gap 4 mEq/L (7-15); Aspartate Amino Transferase* 16 U/L (12-35); Blood Urea Nitrogen* 20 mg/dL (7-30); Carbon Dioxide* 35 mmol/L (20-32); Glucose* 317 mg/dL (60-115); Total Protein* 5.9 g/dL (6.0-8.3)
[2023-09-26 06:10] LABS: Calcium* 7.4 mg/dL (8.4-10.6); Magnesium* 1.6 mg/dL (1.5-2.6)
[2023-09-26 06:13] LABS: Potassium* 2.9 mmol/L (3.6-5.1)
[2023-09-26 06:15] LABS: Slide Review Reflex No
[2023-09-26 06:26] LABS: Procalcitonin* 4.68 ng/mL (<0.50)
[2023-09-26 06:29] LABS: NT Pro B Type NatriureticPept* 5060 pg/mL; Troponin I* < 0.01 ng/mL (0.01-0.04)
[2023-09-26] MEDS: LOPERAMIDE HCL 2 MG CAPSULE PO (06:32)
[2023-09-26] MEDS: OMEPRAZOLE 20 MG CAPSULE DR 40 MG PO (06:32)
[2023-09-26] MEDS: LEVOTHYROXINE 50 MCG TABLET PO (06:33)
[2023-09-26 06:54] LABS: C Reactive Protein* 35.3 mg/dL (0.5-1.0)
--- NOTE | 2023-09-26 07:15 | PM.IMPN1 ---
Progress Note: A&P Assessment and plan (1) Sepsis: Problem details: met sepsis criteria; lactate downtrending. WBC still quite elevated. fever/tachycardia resolved. BC growing gram pos in all bottles. high grade bacteremia, MRSA in UC. Clinically patient is remarkably stable. pH is improved. will change maintenance fluids to NS with K, aware of risk of fluid overload hyperglycemia and improved stability - will d/c the hydrocortisone CT without focal findings of chest abdomen pelvis, CXR unremarkable for acute pathology; presume urosepsis Change zosyn and vanc to daptomycin Reviewed POLST with patient which indicates oral antibiotics only, however patient verbalizes wish to continue with IV antibiotics at this time - no heroic interventions - repeats am of 09/24 - no transfer. This MD understands risk of placing PICC line in a bacteremic patient. 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 Will watch closely for thrombus and or continued positive blood cultures. Status: Acute (2) MRSA bacteremia: Problem details: -urosepsis from self cath as etiology -IV Daptomycin (6mg/kg/24hr) sensitive by growing MRSA -will get daily blood cultures -daily CXR -we did have bicarb infusing with pH that was downtrending and creatinine returning to normal and IV hydrocortisone; both of those have been d/c -on maintenance fluids -echo today to r/o vegetation Consulted with ID - They agree with the daptomycin. Given his MISSILEMAN shunt status - 4 weeks of abx necessary. weekly CBC, CMP, CK necessary. If the 2nd BC comes back positive (after placement of PICC) - we need to pull the PICC line and consider PIV vs another PICC Status: Acute (3) Urinary tract infection: Problem details: -as above Status: Acute (4) Hypothyroidism: Problem details: Continue levothyroxine Status: Acute (5) CKD (chronic kidney disease): Problem details: creatinine: 2.0 --> 1.2 Avoid nephrotoxic medications, renally dose antibiotics, trend Status: Acute (6) Type 2 diabetes mellitus: Problem details: Most recent A1c (07/23/23) 8.8, up from 6.8 in March Hold metformin Glucose checks ACHS, ISS, diabetic diet long acting insulin detemir orderd, sliding scale Status: Acute (7) Hyperlipidemia: Problem details: Continue statin Status: Acute (8) Rectal abnormality: Problem details: CT with incidental finding showing focal eccentric thickening of the rectal wall, which can be seen with a proctitis Loose stools reported earlier today Recommend outpatient follow-up for direct visualization with colonoscopy upon resolution of symptoms to exclude underlying neoplasm Status: Acute Subjective Date Seen: 09/26/23 Interval history: Daily Progress Note - Hospital Medicine Day #: 3 CC: Gram positive sepsis OVERNIGHT UPDATES FROM STAFF & MED, LAB, IMAGING UPDATES ate full breakfast; feels good - better or at least the same. hasn't been up much. incontinent of stool last night (cdiff neg) Shift note: Afebrile overnight, 3 small green stools. Yellow pale urine, output adequate, see I&Os. HR 80-90ies, still on 2L supplemental O2 via NC. Pt c/o pain in scrotum area, barrier medicated cream applied. I have reviewed the vital signs. Patient is hemodynamically stable. No pressors. Fever curve has defervesced, last fever was 12:15 a.m. on September 24 Oxygen requirement continue but pH has improved White blood cell count is slowly down trending. 21.6 this morning Hemoglobin is down trending, 10.8 this morning platelets are slightly low at 130 PH 7.4, pCO2 50 Sodium normal Potassium low at 2.9 Creatinine has improved nicely from admission 2.0 --> 1.2 Troponin remains negative The liver enzymes normal Hyperglycemia as expected with IV hydrocortisone: 431, 483, 240, 239 Inflammatory markers, CRP and procalcitonin have no peaked and are down trending but still quite elevated CRP 42.6 --> 35.3 Procal 7.16 --> 4.68 MRSA screen -- POSITIVE UC: MRSA BC - INITIAL SET AT ADMISSION, POSITIVE GRAM-POSITIVE IN CLUSTERS LIKELY MRSA Two more sets of blood cultures are drawn and pending C diff negative CXR this am: vascular congestion Objective: alert, doesn't look near as ill as you'd expect for given medical findings. Vitals: see above Lungs: Clear. abdomen: protuberant Cardiac: S1S2. legs: mild edema Disposition/Potential discharge - Likely to return to previous living situation. Today I spent 50minutes seeing the patient, reviewing [facility] and EPIC notes/diagnostics, discussing the care plan with our care time that includes social work, PT/OT, pharmacy, RT, fpc and documenting my impressions and plan in the medical record. Exam Const: Vital Signs, click to edit/add: Vital Signs - 24 hr 09/25/23 08:00 09/25/23 09:58 09/25/23 10:00 Temperature 99.2 F 99.8 F H 98.7 F Pulse Rate Pulse Rate [Brachi al] Pulse Rate [Right Pulse Oximeter] 112 H 108 H 107 H Respiratory Rate 22 20 20 Blood Pressure Blood Pressure [Le ft Arm] Blood Pressure [Ri ght Arm] 132/108 H 117/52 L 117/53 L Pulse Oximetry 89 92 92 Oxygen Delivery Me thod Nasal Cannula Nasal Cannula Nasal Cannula Oxygen Flow Rate 2 1.5 1.5 09/25/23 10:30 09/25/23 11:00 09/25/23 11:00 Temperature Pulse Rate Pulse Rate [Brachi al] Pulse Rate [Right Pulse Oximeter] 108 H 108 H 108 H Respiratory Rate 18 18 18 Blood Pressure Blood Pressure [Le ft Arm] Blood Pressure [Ri ght Arm] 114/56 L 110/57 L Pulse Oximetry 92 90 Oxygen Delivery Me thod Nasal Cannula Nasal Cannula Oxygen Flow Rate 1.5 1.5 09/25/23 11:00 09/25/23 11:30 09/25/23 12:00 Temperature 98.7 F 98.3 F Pulse Rate 104 H Pulse Rate [Brachi al] Pulse Rate [Right Pulse Oximeter] 109 H 108 H Respiratory Rate 18 18 Blood Pressure Blood Pressure [Le ft Arm] Blood Pressure [Ri ght Arm] 126/59 L 117/49 L Pulse Oximetry 89 90 Oxygen Delivery Me thod Nasal Cannula Nasal Cannula Oxygen Flow Rate 2 1.5 09/25/23 14:00 09/25/23 15:00 09/25/23 15:00 Temperature 98.3 F Pulse Rate 99 Pulse Rate [Brachi al] 106 H Pulse Rate [Right Pulse Oximeter] 103 H Respiratory Rate 22 18 Blood Pressure Blood Pressure [Le ft Arm] 117/49 L Blood Pressure [Ri ght Arm] Pulse Oximetry 91 Oxygen Delivery Me thod Nasal Cannula Oxygen Flow Rate 2 09/25/23 15:10 09/25/23 16:00 09/25/23 18:00 Temperature 99.3 F 99.3 F 98.8 F Pulse Rate 99 Pulse Rate [Brachi al] Pulse Rate [Right Pulse Oximeter] 99 104 H Respiratory Rate 18 18 20 Blood Pressure 127/57 L Blood Pressure [Le ft Arm] 130/61 144/75 H Blood Pressure [Ri ght Arm] Pulse Oximetry 92 92 93 Oxygen Delivery Me thod Nasal Cannula Nasal Cannula Nasal Cannula Oxygen Flow Rate 2 2 2 09/25/23 19:00 09/25/23 19:00 09/25/23 20:00 Temperature 97.9 F Pulse Rate 103 H Pulse Rate [Brachi al] Pulse Rate [Right Pulse Oximeter] 100 98 Respiratory Rate 20 20 Blood Pressure Blood Pressure [Le ft Arm] 136/57 L Blood Pressure [Ri ght Arm] Pulse Oximetry 93 Oxygen Delivery Me thod Nasal Cannula Oxygen Flow Rate 2 09/25/23 22:00 09/25/23 23:00 09/25/23 23:00 Temperature 98.5 F Pulse Rate 92 Pulse Rate [Brachi al] Pulse Rate [Right Pulse Oximeter] 95 95 Respiratory Rate 20 18 Blood Pressure Blood Pressure [Le ft Arm] 121/74 Blood Pressure [Ri ght Arm] 117/49 L Pulse Oximetry 93 Oxygen Delivery Me thod Nasal Cannula Oxygen Flow Rate 2 09/26/23 00:00 09/26/23 02:00 09/26/23 02:58 Temperature 98.1 F 98 F Pulse Rate 84 Pulse Rate [Brachi al] Pulse Rate [Right Pulse Oximeter] 91 84 Respiratory Rate 18 18 Blood Pressure Blood Pressure [Le ft Arm] 134/71 113/64 Blood Pressure [Ri ght Arm] Pulse Oximetry 93 92 Oxygen Delivery Me thod Nasal Cannula Nasal Cannula Oxygen Flow Rate 2 2 09/26/23 02:58 09/26/23 04:00 09/26/23 06:00 Temperature 98.1 F 98.5 F Pulse Rate Pulse Rate [Brachi al] Pulse Rate [Right Pulse Oximeter] 84 90 88 Respiratory Rate 18 20 18 Blood Pressure Blood Pressure [Le ft Arm] 145/96 H 126/73 Blood Pressure [Ri ght Arm] Pulse Oximetry 93 95 Oxygen Delivery Me thod Nasal Cannula Nasal Cannula Oxygen Flow Rate 2 5 Labs Labs: Laboratory Results - last 24 hr 09/25/23 09/25/23 09/25/23 07:13 07:46 16:55 WBC 23.27 H Corrected WBC RBC 4.97 Hgb 13.0 L Hct 41.1 MCV 83 MCH 26 MCHC 32 RDW Coeff of Adriana Plt Count 140 Neut % (Auto) Lymph % (Auto) [place] % (Auto) Eos % (Auto) Baso % (Auto) Neut # (Auto) Lymph # (Auto) [place] # (Auto) Eos # (Auto) Baso # (Auto) Abs Immat Gran (auto) Imm/Tot Granulo (auto) VBG pH 7.304 L 7.426 VBG pCO2 48 40 VBG pO2 31.4 45.9 VBG HCO3 24 26 Sodium 138 133 L Potassium 4.1 3.5 L Chloride 106 101 Carbon Dioxide 24 29 Anion Gap 8 3 L BUN 28 24 Creatinine 1.7 H 1.5 Estimated Creat Clear 30.23 34.26 Estimated GFR 40 46 Glucose 239 H 501 H* Lactate 2.1 H 1.6 Calcium 8.2 L 7.4 L Magnesium 1.2 L 1.6 Total Bilirubin AST ALT Alkaline Phosphatase Troponin I 0.04 C-Reactive Protein 42.6 H NT-Pro-B Natriuret Pep 6460 Total Protein Albumin Procalcitonin 7.16 H Lab Acknowledgement Test Added 09/26/23 09/26/23 09/26/23 05:30 05:30 05:30 WBC Cancelled 21.67 H Corrected WBC Cancelled RBC Cancelled 4.11 L Hgb Cancelled Hct MCV MCH MCHC RDW Coeff of Adriana Plt Count Neut % (Auto) Lymph % (Auto) [place] % (Auto) Eos % (Auto) Baso % (Auto) Neut # (Auto) Lymph # (Auto) [place] # (Auto) Eos # (Auto) Baso # (Auto) Abs Immat Gran (auto) Imm/Tot Granulo (auto) VBG pH VBG pCO2 VBG pO2 VBG HCO3 Sodium Potassium Chloride Carbon Dioxide Anion Gap BUN Creatinine Estimated Creat Clear Estimated GFR Glucose Lactate Calcium Magnesium Total Bilirubin AST ALT Alkaline Phosphatase Troponin I C-Reactive Protein NT-Pro-B Natriuret Pep Total Protein Albumin Procalcitonin Lab Acknowledgement 09/26/23 09/26/23 09/26/23 05:30 05:30 05:30 WBC Corrected WBC RBC Hgb 10.8 L Hct Cancelled 33.4 L MCV Cancelled 81 MCH Cancelled MCHC RDW Coeff of Adriana Plt Count Neut % (Auto) Lymph % (Auto) [place] % (Auto) Eos % (Auto) Baso % (Auto) Neut # (Auto) Lymph # (Auto) [place] # (Auto) Eos # (Auto) Baso # (Auto) Abs Immat Gran (auto) Imm/Tot Granulo (auto) VBG pH VBG pCO2 VBG pO2 VBG HCO3 Sodium Potassium Chloride Carbon Dioxide Anion Gap BUN Creatinine Estimated Creat Clear Estimated GFR Glucose Lactate Calcium Magnesium Total Bilirubin AST ALT Alkaline Phosphatase Troponin I C-Reactive Protein NT-Pro-B Natriuret Pep Total Protein Albumin Procalcitonin Lab Acknowledgement 09/26/23 09/26/23 09/26/23 05:30 05:30 05:30 WBC Corrected WBC RBC Hgb Hct MCV MCH 26 MCHC Cancelled 32 RDW Coeff of Adriana Cancelled Plt Count Cancelled 130 L Neut % (Auto) Cancelled Lymph % (Auto) Cancelled [place] % (Auto) Cancelled Eos % (Auto) Cancelled Baso % (Auto) Cancelled Neut # (Auto) Cancelled Lymph # (Auto) Cancelled [place] # (Auto) Cancelled Eos # (Auto) Cancelled Baso # (Auto) Cancelled Abs Immat Gran (auto) Cancelled Imm/Tot Granulo (auto) Cancelled VBG pH 7.441 H VBG pCO2 50 VBG pO2 40.7 VBG HCO3 34 H Sodium 137 Potassium 2.9 L* Chloride 98 Carbon Dioxide 35 H Anion Gap 4 L BUN 20 Creatinine 1.2 Estimated Creat Clear 42.83 Estimated GFR 60 Glucose 317 H Lactate 1.0 Calcium 7.4 L Magnesium 1.6 Total Bilirubin 0.4 AST 16 ALT 11 Alkaline Phosphatase 82 Troponin I < 0.01 L C-Reactive Protein 35.3 H NT-Pro-B Natriuret Pep 5060 Total Protein 5.9 L Albumin 3.1 L Procalcitonin 4.68 H Lab Acknowledgement
--- NOTE | 2023-09-26 07:23 | XR_ITS ---
Patient: CHERRI KAUR Facility:?[facility] Patient ID:?[id number] Site Patient ID:?[id number]. Site :?[id number] Study:?XRay-Chest 1V-09/26/2023 7:47:30 AM Ordering Physician:?DR. SEYMOUR Final Report: Indication: MRSA sepsis, on oxygen. Technique: 1 View(s) of the chest. Comparison: 09/25/2023 radiographs and 09/24/2023 CT. Findings/Impression: Lines and tubes: Right upper extremity PICC tip at the superior cavoatrial junction partially visualized right chest ventriculoperitoneal shunt catheter. Unchanged cardiomediastinal silhouette with atherosclerotic aortic calcifications. Central pulmonary vascular congestion is similar with mild increase in bilateral interstitial edema. No focal consolidation. No large pleural effusion or pneumothorax. Bones and soft tissues are unchanged with suture anchors in the right humeral head and post operative changes following left distal clavicle resection. Dictated by Conchita Marquez MD @ 09/26/2023 7:59:23 AM Signed by:?Conchita Marquez MD @09/26/2023 7:59:23 AM (Electronic Signature)
[2023-09-26] MEDS: 0.9 % SODIUM CH + KCL 20 mEq/L 1,000 ML 100 ML IV ×2 (08:49→18:42)
[2023-09-26] MEDS: POTASSIUM CHLORIDE 10 MEQ/100 ML PIGGYBACK 100 MEQ IVPB ×4 (08:54→14:03)
[2023-09-26] MEDS: INSULIN ASPART 100 UNIT/ML SUBCUT ×4 (08:59→21:43)
[2023-09-26] MEDS: DAPTOmycin 50 MG/ML inj 470 MG IVP (08:59)
[2023-09-26] MEDS: POTASSIUM CHLORIDE 10 MEQ CAPSULE ER 20 MEQ PO ×2 (09:06→17:43)
[2023-09-26] MEDS: ASPIRIN 81 MG TABLET EC PO (09:06)
[2023-09-26] MEDS: ATORVASTATIN 10 MG TABLET 20 MG PO (09:06)
[2023-09-26] MEDS: LORATADINE 10 MG TABLET PO (09:07)
[2023-09-26] MEDS: TAMSULOSIN HCL 0.4 MG CAPSULE PO (09:07)
[2023-09-26] MEDS: CLOPIDOGREL 75 MG TABLET PO (09:07)
--- NOTE | 2023-09-26 10:13 | NUTR.NU ---
RDN with MD consult for nutritional consult. Patient admitted with MRSA Bacteremia and Sepsis. Current diet is Diabetic. Meal intakes has been adequate at 75%+ since admit. Current weight 171 lbs; height 5ft 6in; BMI is 27.6 kg/m2. Patient is a resident at [facility]. RDN visited with patient whom reports a good appetite. Denies nausea, vomiting, diarrhea, constipation. He reports enjoying the food where he lives. He is not on a diabetic diet at [facility]. RDN offered diet education and patient declined at this time. He reports he tries to watch what he eats, including avoiding sweets. No nutrition interventions at this time. RDN will continue to monitor and follow-up prn.
--- NOTE | 2023-09-26 10:17 | W.PM.INFDCN ---
Consultation Information Consultation Information Date of Consult: 09/26/23 Requesting Physician: Rony Anderson Reason for Consult: GPC bacteremia Consultation Statement: This patient recommendation is based on a telemedicine consult request which was completed asynchronously through chart review and information provided by the primary physician. The patient was not seen or examined today. The evaluation is consultative in nature and all patient care and treatment decisions can either be accepted or rejected by the patient's primary hospital-based treating physician using their own independent medical judgment for their patient. [employer] contact information: Please call [facility] call center [phone] HPI - Infectious Disease History of Present Illness History of Present Illness: 83 elderly male resident of [facility] DM, HTN, dyslipidemia, hypothyroidism, CKD, underlying [employer]UREMENT [employer]ER shunt, prior history of CVA is presenting with N/V/diarrhea x 1 day associated with hypotension, tachycardic. No fevers, chills, abdominal pain, respiratory or complaints. On admission patient was poor historian In the ED Tmax 99.8, WBC 24K, cr 2, LFT NL, lactate 6, responded to IV fluids, BCx positive for GPC in clusters. Started on IV vancomycin, IV Zosyn CT CAP (con): No intrathoracic or abdominopelvic pathology. Likely proctitis. Repeat CXR no pneumonia While on IV antibiotics has significantly improved overall with resolution of weakness and cleared his mentation. No focal pains. ID consulted for duration of Abx [facility] Medical History (Updated 09/26/23 @ 09:37 by Josee Anderson MD) NPH (normal pressure hydrocephalus) ?G91.2 - (Idiopathic) normal pressure hydrocephalus (ICD-10) Type 2 diabetes mellitus ?E11.9 - Type 2 diabetes mellitus without complications (ICD-10) CKD (chronic kidney disease) ?N18.9 - Chronic kidney disease, unspecified (ICD-10) BPH (benign prostatic hyperplasia) ?N40.0 - Benign prostatic hyperplasia without lower urinary tract symptoms (ICD-10) GERD (gastroesophageal reflux disease) ?K21.9 - Gastro-esophageal reflux disease without esophagitis (ICD-10) Hyperlipidemia ?E78.5 - Hyperlipidemia, unspecified (ICD-10) Hypothyroidism ?E03.9 - Hypothyroidism, unspecified (ICD-10) History of CVA (cerebrovascular accident) ?Z86.73 - Personal history of transient ischemic attack (TIA), and cerebral infarction without residual deficits (ICD-10) Surgical History (Updated 09/25/23 @ 23:11 by Paloma Christina PA-C) S/P ventriculoperitoneal shunt ?Z98.2 - Presence of cerebrospinal fluid drainage device (ICD-10) Social History What is your current living situation?: I presently have a place to live Problems where you live: no known problems Problems where you live details: none In the past 12 months, utilities in danger of being shut off: no In past 12 months, lack of transportation kept you from medical appts, meetings, work, or getting things needed for daily living: no In the past 12 mos, have been you worried that your food would run out before you had money to buy more?: never true In the past 12 mos, the food you bought just didn't last and you didn't have money to buy more?: never true Smoking Status: Former smoker Do you use any of these nicotine containing products: None Second hand tobacco smoke exposure: No How often do you have a drink containing alcohol: 4 or more times a week Alcohol type: hard liquor Alcohol type details: 1 shot Rum a day How many standard drinks containing alcohol do you have on a typical day: 1 or 2 How often do you have six or more drinks on one occasion: Never AUDIT-C Alcohol total score: 4 Non-prescribed substance use: denies use How often does anyone, including family, friends and others, physically hurt you: never How often does anyone, including family, friends and others, insult or talk down to you: rarely How often does anyone, including family, friends and others, threaten you with harm: never How often does anyone, including family, friends and others, scream or curse at you: never service: Yes Home Medications and Allergies Home Medications and Allergies Inpatient Medications: Active Medications Generic Name Dose Route Start Last Admin Trade Name Freq PRN Reason Stop Dose Admin Acetaminophen 1,000 mg 09/24/23 16:57 09/25/23 00:15 Acetaminophen 325 Mg Tablet PO 975 mg Q6H PRN Administration Aspirin 81 mg 09/25/23 09:00 09/26/23 09:06 Aspirin 81 Mg Tablet Ec PO 81 mg DAILY ALIREZA Administration Atorvastatin Calcium 20 mg 09/25/23 09:00 09/26/23 09:06 Atorvastatin 10 Mg Tablet PO 20 mg DAILY ALIREZA Administration Clopidogrel Bisulfate 75 mg 09/25/23 09:00 09/26/23 09:07 Clopidogrel 75 Mg Tablet PO 75 mg DAILY ALIREZA Administration Daptomycin 470 mg 09/26/23 08:30 09/26/23 08:59 Daptomycin 50 Mg/Ml Inj IVP 470 mg Q24H ALIREZA Administration Enoxaparin Sodium 30 mg 09/24/23 21:00 09/25/23 20:22 Enoxaparin 30 Mg/0.3ml Inj SUBCUT 30 mg Q24H ALIREZA Administration Gabapentin 300 mg 09/24/23 21:00 09/25/23 20:21 Gabapentin 300 Mg Capsule PO 300 mg HS ALIREZA Administration Potassium Chloride 10 meq in 100 mls @ 100 mls/hr 09/26/23 08:00 09/26/23 08:54 Potassium Chloride IVPB 09/26/23 13:29 100 mls/hr Q90M ALIREZA Administration Potassium Chloride/Sodium Chloride 1,000 mls @ 100 mls/hr 09/26/23 07:30 09/26/23 08:49 0.9 % Sodium Ch + Kcl 20 Meq/L IV 100 mls/hr .Q10H ALIREZA Administration Insulin Aspart 0 unit 09/25/23 16:49 09/26/23 08:59 Insulin Aspart 100 Unit/Ml SUBCUT 6 unit ACHS ALIREZA Administration Protocol Insulin Detemir 10 unit 09/25/23 20:45 09/25/23 21:13 Insulin Detemir (Levemir) 100 Unit/Ml SUBCUT 10 unit Q24H ALIREZA Administration Levothyroxine Sodium 50 mcg 09/25/23 07:00 09/26/23 06:33 Levothyroxine 50 Mcg Tablet PO 50 mcg DAILY@0700 ALIREZA Administration Loperamide HCl 2 mg 09/24/23 23:05 09/26/23 06:32 Loperamide Hcl 2 Mg Capsule PO 2 mg Q2H PRN Administration Diarrhea Loratadine 10 mg 09/25/23 09:00 09/26/23 09:07 Loratadine 10 Mg Tablet PO 10 mg DAILY ALIREZA Administration Melatonin 3 - 6 mg 09/24/23 16:57 Melatonin 3 Mg Tablet PO HS PRN Omeprazole 40 mg 09/25/23 07:00 09/26/23 06:32 Omeprazole [address] PO 40 mg DAILY@0700 [facility] Administration Ondansetron HCl 4 mg 09/24/23 16:57 Ondansetron 2 Mg/Ml Inj IVP Q4H PRN Nausea Potassium Chloride 20 meq 09/25/23 18:35 09/26/23 09:06 Potassium Chloride 10 Meq Capsule Er PO 09/27/23 08:01 20 meq BIDWM ALIREZA Administration Senna/Docusate Sodium 1 tab 09/24/23 16:57 Sennosides/Docusate Tablet PO DAILY PRN Sodium Chloride 5 ml 09/24/23 16:57 09/26/23 00:22 Sodium Chloride 0.9 % (Flush) 10 Ml Syringe IVF 5 ml .FLUSH PRN Administration Sodium Chloride 5 ml 09/24/23 21:00 09/26/23 09:07 Sodium Chloride 0.9 % (Flush) 10 Ml Syringe IVF 5 ml BID ALIREZA Administration Tamsulosin HCl 0.4 mg 09/25/23 09:00 09/26/23 09:07 Tamsulosin Hcl 0.4 Mg Capsule PO 0.4 mg DAILY [facility] Administration Zinc Oxide 1 applic 09/25/23 21:00 09/26/23 09:08 Zinc Oxide 40 % 113 Gm Tube TOPICAL 1 applic BID ALIREZA Administration Discontinued Medications Generic Name Dose Route Start Last Admin Trade Name Freq PRN Reason Stop Dose Admin Acetaminophen 650 mg 09/24/23 16:13 09/24/23 16:25 Acetaminophen 325 Mg Tablet PO 09/24/23 16:14 650 mg ONCE ONE Administration Acetaminophen Confirm 09/24/23 16:24 Acetaminophen 325 Mg Tablet Administered 09/24/23 16:25 Dose 650 mg .ROUTE .STK-MED ONE Enoxaparin Sodium 30 mg 09/24/23 17:00 09/25/23 16:16 Enoxaparin 30 Mg/0.3ml Inj SUBCUT Not Given Q24H [facility] Hydrocortisone Sodium Succinate 100 mg 09/25/23 08:30 09/26/23 00:21 Hydrocortisone Sod Succinate 50 Mg/Ml Inj IVP 100 mg Q8H ALIREZA Administration Sodium Chloride 1,000 mls @ 500 mls/hr 09/24/23 12:37 09/24/23 14:40 0.9 % Sodium Chloride 1000 Ml IV 09/24/23 14:36 Infused .Q2H ALIREZA Infusion Sodium Chloride 1,000 mls @ 500 mls/hr 09/24/23 13:59 09/25/23 16:16 0.9 % Sodium Chloride 1000 Ml IV 09/24/23 15:58 Infused .Q2H ALIREZA Infusion Piperacillin Sod/Tazobactam 100 mls @ 200 mls/hr 09/24/23 14:51 09/24/23 15:44 Sod 3.375 gm/ Sodium Chloride IVPB 09/24/23 14:52 Infused ONCE ONE Infusion Vancomycin HCl 1,000 mg/ 260 mls @ 260 mls/hr 09/24/23 15:20 09/25/23 16:16 Sodium Chloride IVPB 09/24/23 16:19 Infused ONCE ONE Infusion Sodium Chloride 1,000 mls @ 125 mls/hr 09/24/23 17:15 09/25/23 14:59 0.9 % Sodium Chloride 1000 Ml IV Infused .Q8H ALIREZA Infusion Piperacillin Sod/Tazobactam 100 mls @ 200 mls/hr 09/24/23 17:30 09/26/23 06:33 Sod 2.25 gm/ Sodium Chloride IVPB Infused Q6H ALIREZA Infusion Vancomycin HCl 750 mg/ Sodium 257.5 mls @ 255 mls/hr 09/25/23 16:00 09/25/23 17:50 Chloride IVPB Infused Q24H ALIREZA Infusion Protocol Sodium Bicarbonate 150 meq/ 1,150 mls @ 150 mls/hr 09/25/23 08:30 09/26/23 00:22 Dextrose IV 150 mls/hr .Q7H40M ALIREZA Administration Albumin Human 25 gm in 100 mls @ 100 mls/hr 09/25/23 08:26 09/25/23 10:41 Albumin Human 25% IVPB 09/25/23 09:25 Infused ONCE ONE Infusion Magnesium Sulfate 2 gm in 50 mls @ 150 mls/hr 09/25/23 08:26 09/25/23 10:42 Magnesium Iv IVPB 09/25/23 08:45 Infused ONCE ONE Infusion IV Miscellaneous Supplies 1 each 09/25/23 09:00 Pharmacist Consult DAILY ALIREZA Protocol Insulin Aspart 0 unit 09/24/23 18:00 09/24/23 18:48 Insulin Aspart 100 Unit/Ml SUBCUT 3 unit TIDWM ALIREZA Administration Protocol Insulin Aspart 0 unit 09/24/23 23:05 09/25/23 12:39 Insulin Aspart 100 Unit/Ml SUBCUT 2 unit ACHS [facility] Administration Protocol Insulin Detemir 10 unit 09/26/23 08:00 09/26/23 08:59 Insulin Detemir (Levemir) 100 Unit/Ml SUBCUT 09/26/23 08:01 10 unit ONCE ONE Administration Ondansetron HCl 4 mg 09/24/23 12:40 09/24/23 12:40 Ondansetron 2 Mg/Ml Inj IVP 09/24/23 12:41 4 mg ONCE ONE Administration Allergies Allergy/AdvReac Type Severity Reaction Status Date / Time desoximetasone Allergy Unknown Verified 01/20/23 10:54 formaldehyde Allergy Unknown Verified 01/20/23 10:54 lisinopril Allergy Unknown Verified 01/20/23 10:54 methylisothiazolinone Allergy Unknown Verified 01/20/23 10:54 Objective - Infectious Disease Objective Vital Signs: Vital Signs - 24 hr 09/25/23 10:30 09/25/23 11:00 09/25/23 11:00 Temperature Pulse Rate Pulse Rate [Brachial] Pulse Rate [Right Pulse Oximeter] 108 H 108 H 108 H Respiratory Rate 18 18 18 Blood Pressure Blood Pressure [Left Arm] Blood Pressure [Right Arm] 114/56 L 110/57 L Pulse Oximetry 92 90 Oxygen Delivery Method Nasal Cannula Nasal Cannula Oxygen Flow Rate 1.5 1.5 09/25/23 11:00 09/25/23 11:30 09/25/23 12:00 Temperature 98.7 F 98.3 F Pulse Rate 104 H Pulse Rate [Brachial] Pulse Rate [Right Pulse Oximeter] 109 H 108 H Respiratory Rate 18 18 Blood Pressure Blood Pressure [Left Arm] Blood Pressure [Right Arm] 126/59 L 117/49 L Pulse Oximetry 89 90 Oxygen Delivery Method Nasal Cannula Nasal Cannula Oxygen Flow Rate 2 1.5 09/25/23 14:00 09/25/23 15:00 09/25/23 15:00 Temperature 98.3 F Pulse Rate 99 Pulse Rate [Brachial] 106 H Pulse Rate [Right Pulse Oximeter] 103 H Respiratory Rate 22 18 Blood Pressure Blood Pressure [Left Arm] 117/49 L Blood Pressure [Right Arm] Pulse Oximetry 91 Oxygen Delivery Method Nasal Cannula Oxygen Flow Rate 2 09/25/23 15:10 09/25/23 16:00 09/25/23 18:00 Temperature 99.3 F 99.3 F 98.8 F Pulse Rate 99 Pulse Rate [Brachial] Pulse Rate [Right Pulse Oximeter] 99 104 H Respiratory Rate 18 18 20 Blood Pressure 127/57 L Blood Pressure [Left Arm] 130/61 144/75 H Blood Pressure [Right Arm] Pulse Oximetry 92 92 93 Oxygen Delivery Method Nasal Cannula Nasal Cannula Nasal Cannula Oxygen Flow Rate 2 2 2 09/25/23 19:00 09/25/23 19:00 09/25/23 20:00 Temperature 97.9 F Pulse Rate 103 H Pulse Rate [Brachial] Pulse Rate [Right Pulse Oximeter] 100 98 Respiratory Rate 20 20 Blood Pressure Blood Pressure [Left Arm] 136/57 L Blood Pressure [Right Arm] Pulse Oximetry 93 Oxygen Delivery Method Nasal Cannula Oxygen Flow Rate 2 09/25/23 22:00 09/25/23 23:00 09/25/23 23:00 Temperature 98.5 F Pulse Rate 92 Pulse Rate [Brachial] Pulse Rate [Right Pulse Oximeter] 95 95 Respiratory Rate 20 18 Blood Pressure Blood Pressure [Left Arm] 121/74 Blood Pressure [Right Arm] 117/49 L Pulse Oximetry 93 Oxygen Delivery Method Nasal Cannula Oxygen Flow Rate 2 09/26/23 00:00 09/26/23 02:00 09/26/23 02:58 Temperature 98.1 F 98 F Pulse Rate 84 Pulse Rate [Brachial] Pulse Rate [Right Pulse Oximeter] 91 84 Respiratory Rate 18 18 Blood Pressure Blood Pressure [Left Arm] 134/71 113/64 Blood Pressure [Right Arm] Pulse Oximetry 93 92 Oxygen Delivery Method Nasal Cannula Nasal Cannula Oxygen Flow Rate 2 2 09/26/23 02:58 09/26/23 04:00 09/26/23 06:00 Temperature 98.1 F 98.5 F Pulse Rate Pulse Rate [Brachial] Pulse Rate [Right Pulse Oximeter] 84 90 88 Respiratory Rate 18 20 18 Blood Pressure Blood Pressure [Left Arm] 145/96 H 126/73 Blood Pressure [Right Arm] Pulse Oximetry 93 95 Oxygen Delivery Method Nasal Cannula Nasal Cannula Oxygen Flow Rate 2 5 09/26/23 07:00 09/26/23 07:47 09/26/23 08:00 Temperature Pulse Rate 96 88 Pulse Rate [Brachial] Pulse Rate [Right Pulse Oximeter] Respiratory Rate 18 Blood Pressure Blood Pressure [Left Arm] Blood Pressure [Right Arm] Pulse Oximetry 96 93 Oxygen Delivery Method Oxygen Flow Rate 09/26/23 08:01 09/26/23 08:09 Temperature 98.5 F Pulse Rate 88 99 Pulse Rate [Brachial] Pulse Rate [Right Pulse Oximeter] Respiratory Rate 18 Blood Pressure 137/80 Blood Pressure [Left Arm] Blood Pressure [Right Arm] Pulse Oximetry 94 Oxygen Delivery Method Nasal Cannula Oxygen Flow Rate 2 Narrative: Patient was not seen or examined. Results - Infectious Disease Results Labs: 09/26/23 07:00 Blood Blood Culture - Pending 09/26/23 05:30 Blood Blood Culture - Pending 09/24/23 Unknown Urine,Clean Catch Urine Culture - Preliminary Staphylococcus aureus 09/24/23 13:06 Blood Blood Culture - Preliminary Gram positive cocci in cluster 09/24/23 21:11 Nares MRSA Screen - Final 09/25/23 16:55 Blood Blood Culture - Pending 09/25/23 17:02 Blood Blood Culture - Pending 09/24/23 13:26 Blood Blood Culture - Preliminary Gram positive cocci in cluster Laboratory Tests 09/26/23 09/26/23 09/26/23 Range/Units 05:30 05:30 05:30 WBC (4.50-11.00) K/uL Corrected WBC RBC (4.30-5.90) m/uL Hgb (13.5-17.5) gm/dL Hct (37.0-53.0) % MCV (80-100) fL MCH 26 (26-34) pg MCHC 32 Cancelled (32-36) gm/dL RDW Coeff of Adriana Cancelled (11.5-15.5) % Plt Count 130 L Cancelled (140-440) K/uL Neut % (Auto) Cancelled (42.0-72.0) % Lymph % (Auto) Cancelled (20-44) % Sargent % (Auto) Cancelled (0.0-11.0) % Eos % (Auto) Cancelled (0.0-7.0) % Baso % (Auto) Cancelled (0.0-3.0) % Neut # (Auto) Cancelled (1.7-7.0) K/uL Lymph # (Auto) Cancelled (0.90-2.90) K/uL Sargent # (Auto) Cancelled (0.00-0.90) K/UL Eos # (Auto) Cancelled (0.00-0.50) K/uL Baso # (Auto) Cancelled (0.00-0.30) K/uL Abs Immat Gran (auto) Cancelled (0.00-0.30) K/uL Imm/Tot Granulo (auto) Cancelled % VBG pH 7.441 H (7.32-7.43) VBG pCO2 50 (40-50) mmHG VBG pO2 40.7 (25-47) mmHG VBG HCO3 34 H (21-28) mmol/L Sodium 137 (135-149) mmol/L Potassium 2.9 L* (3.6-5.1) mmol/L Chloride 98 (96-114) mmol/L Carbon Dioxide 35 H (20-32) mmol/L Anion Gap 4 L (7-15) mEq/L BUN 20 (7-30) mg/dL Creatinine 1.2 (0.5-1.5) mg/dL Estimated Creat Clear 42.83 Estimated GFR 60 ml/min Glucose 317 H (60-115) mg/dL Lactate 1.0 (0.5-1.9) mmol/L Calcium 7.4 L (8.4-10.6) mg/dL Magnesium 1.6 (1.5-2.6) mg/dL Total Bilirubin 0.4 (0.1-1.5) mg/dL AST 16 (12-35) U/L ALT 11 (4-50) U/L Alkaline Phosphatase 82 (40-150) U/L Troponin I < 0.01 L (0.01-0.04) ng/mL C-Reactive Protein 35.3 H (0.5-1.0) mg/dL NT-Pro-B Natriuret Pep 5060 pg/mL Total Protein 5.9 L (6.0-8.3) g/dL Albumin 3.1 L (3.3-5.0) g/dL Procalcitonin 4.68 H (<0.50) ng/mL Urine Color (Yellow) Urine Appearance (Clear) Urine pH (5.0-8.5) Ur Specific [place] (1.000-1.030) Urine Protein (Negative) Urine Glucose (UA) (Negative) Urine Ketones (Negative) Urine Blood (Negative) Urine Nitrite (Negative) Urine Bilirubin (Negative) Urine Urobilinogen (0.2-1.0) Ur Leukocyte Esterase (Negative) Urine RBC (0-2) Urine WBC (0-5) Ur Squamous Epith Cells (None-Few) Urine Bacteria (None) Stl C. diff Tox B Gene (Negative) Stl C. diff 027-NAP1-BI (Negative) SARS-CoV-2 (PCR) (Negative) Influenza Type A (PCR) (Negative) Influenza Type B (PCR) (Negative) RSV (PCR) (Negative) Lab Acknowledgement 09/26/23 09/26/23 09/26/23 Range/Units 05:30 05:30 05:30 WBC (4.50-11.00) K/uL Corrected WBC RBC (4.30-5.90) m/uL Hgb 10.8 L (13.5-17.5) gm/dL Hct 33.4 L Cancelled (37.0-53.0) % MCV 81 Cancelled (80-100) fL MCH Cancelled (26-34) pg MCHC (32-36) gm/dL RDW Coeff of Adriana (11.5-15.5) % Plt Count (140-440) K/uL Neut % (Auto) (42.0-72.0) % Lymph % (Auto) (20-44) % Sargent % (Auto) (0.0-11.0) % Eos % (Auto) (0.0-7.0) % Baso % (Auto) (0.0-3.0) % Neut # (Auto) (1.7-7.0) K/uL Lymph # (Auto) (0.90-2.90) K/uL Sargent # (Auto) (0.00-0.90) K/UL Eos # (Auto) (0.00-0.50) K/uL Baso # (Auto) (0.00-0.30) K/uL Abs Immat Gran (auto) (0.00-0.30) K/uL Imm/Tot Granulo (auto) % VBG pH (7.32-7.43) VBG pCO2 (40-50) mmHG VBG pO2 (25-47) mmHG VBG HCO3 (21-28) mmol/L Sodium (135-149) mmol/L Potassium (3.6-5.1) mmol/L Chloride (96-114) mmol/L Carbon Dioxide (20-32) mmol/L Anion Gap (7-15) mEq/L BUN (7-30) mg/dL Creatinine (0.5-1.5) mg/dL Estimated Creat Clear Estimated GFR ml/min Glucose (60-115) mg/dL Lactate (0.5-1.9) mmol/L Calcium (8.4-10.6) mg/dL Magnesium (1.5-2.6) mg/dL Total Bilirubin (0.1-1.5) mg/dL AST (12-35) U/L ALT (4-50) U/L Alkaline Phosphatase (40-150) U/L Troponin I (0.01-0.04) ng/mL C-Reactive Protein (0.5-1.0) mg/dL NT-Pro-B Natriuret Pep pg/mL Total Protein (6.0-8.3) g/dL Albumin (3.3-5.0) g/dL Procalcitonin (<0.50) ng/mL Urine Color (Yellow) Urine Appearance (Clear) Urine pH (5.0-8.5) Ur Specific [place] (1.000-1.030) Urine Protein (Negative) Urine Glucose (UA) (Negative) Urine Ketones (Negative) Urine Blood (Negative) Urine Nitrite (Negative) Urine Bilirubin (Negative) Urine Urobilinogen (0.2-1.0) Ur Leukocyte Esterase (Negative) Urine RBC (0-2) Urine WBC (0-5) Ur Squamous Epith Cells (None-Few) Urine Bacteria (None) Stl C. diff Tox B Gene (Negative) Stl C. diff 027-NAP1-BI (Negative) SARS-CoV-2 (PCR) (Negative) Influenza Type A (PCR) (Negative) Influenza Type B (PCR) (Negative) RSV (PCR) (Negative) Lab Acknowledgement 09/26/23 09/26/23 09/26/23 Range/Units 05:30 05:30 05:30 WBC 21.67 H Cancelled (4.50-11.00) K/uL Corrected WBC Cancelled RBC 4.11 L Cancelled (4.30-5.90) m/uL Hgb Cancelled (13.5-17.5) gm/dL Hct (37.0-53.0) % MCV (80-100) fL MCH (26-34) pg MCHC (32-36) gm/dL RDW Coeff of Adriana (11.5-15.5) % Plt Count (140-440) K/uL Neut % (Auto) (42.0-72.0) % Lymph % (Auto) (20-44) % Sargent % (Auto) (0.0-11.0) % Eos % (Auto) (0.0-7.0) % Baso % (Auto) (0.0-3.0) % Neut # (Auto) (1.7-7.0) K/uL Lymph # (Auto) (0.90-2.90) K/uL Sargent # (Auto) (0.00-0.90) K/UL Eos # (Auto) (0.00-0.50) K/uL Baso # (Auto) (0.00-0.30) K/uL Abs Immat Gran (auto) (0.00-0.30) K/uL Imm/Tot Granulo (auto) % VBG pH (7.32-7.43) VBG pCO2 (40-50) mmHG VBG pO2 (25-47) mmHG VBG HCO3 (21-28) mmol/L Sodium (135-149) mmol/L Potassium (3.6-5.1) mmol/L Chloride (96-114) mmol/L Carbon Dioxide (20-32) mmol/L Anion Gap (7-15) mEq/L BUN (7-30) mg/dL Creatinine (0.5-1.5) mg/dL Estimated Creat Clear Estimated GFR ml/min Glucose (60-115) mg/dL Lactate (0.5-1.9) mmol/L Calcium (8.4-10.6) mg/dL Magnesium (1.5-2.6) mg/dL Total Bilirubin (0.1-1.5) mg/dL AST (12-35) U/L ALT (4-50) U/L Alkaline Phosphatase (40-150) U/L Troponin I (0.01-0.04) ng/mL C-Reactive Protein (0.5-1.0) mg/dL NT-Pro-B Natriuret Pep pg/mL Total Protein (6.0-8.3) g/dL Albumin (3.3-5.0) g/dL Procalcitonin (<0.50) ng/mL Urine Color (Yellow) Urine Appearance (Clear) Urine pH (5.0-8.5) Ur Specific [place] (1.000-1.030) Urine Protein (Negative) Urine Glucose (UA) (Negative) Urine Ketones (Negative) Urine Blood (Negative) Urine Nitrite (Negative) Urine Bilirubin (Negative) Urine Urobilinogen (0.2-1.0) Ur Leukocyte Esterase (Negative) Urine RBC (0-2) Urine WBC (0-5) Ur Squamous Epith Cells (None-Few) Urine Bacteria (None) Stl C. diff Tox B Gene (Negative) Stl C. diff 027-NAP1-BI (Negative) SARS-CoV-2 (PCR) (Negative) Influenza Type A (PCR) (Negative) Influenza Type B (PCR) (Negative) RSV (PCR) (Negative) Lab Acknowledgement 09/25/23 09/25/23 09/25/23 Range/Units 16:55 07:46 07:13 WBC 23.27 H (4.50-11.00) K/uL Corrected WBC RBC 4.97 (4.30-5.90) m/uL Hgb 13.0 L (13.5-17.5) gm/dL Hct 41.1 (37.0-53.0) % MCV 83 (80-100) fL MCH 26 (26-34) pg MCHC 32 (32-36) gm/dL RDW Coeff of Adriana (11.5-15.5) % Plt Count 140 (140-440) K/uL Neut % (Auto) (42.0-72.0) % Lymph % (Auto) (20-44) % Sargent % (Auto) (0.0-11.0) % Eos % (Auto) (0.0-7.0) % Baso % (Auto) (0.0-3.0) % Neut # (Auto) (1.7-7.0) K/uL Lymph # (Auto) (0.90-2.90) K/uL Sargent # (Auto) (0.00-0.90) K/UL Eos # (Auto) (0.00-0.50) K/uL Baso # (Auto) (0.00-0.30) K/uL Abs Immat Gran (auto) (0.00-0.30) K/uL Imm/Tot Granulo (auto) % VBG pH 7.426 7.304 L (7.32-7.43) VBG pCO2 40 48 (40-50) mmHG VBG pO2 45.9 31.4 (25-47) mmHG VBG HCO3 26 24 (21-28) mmol/L Sodium 133 L 138 (135-149) mmol/L Potassium 3.5 L 4.1 (3.6-5.1) mmol/L Chloride 101 106 (96-114) mmol/L Carbon Dioxide 29 24 (20-32) mmol/L Anion Gap 3 L 8 (7-15) mEq/L BUN 24 28 (7-30) mg/dL Creatinine 1.5 1.7 H (0.5-1.5) mg/dL Estimated Creat Clear 34.26 30.23 Estimated GFR 46 40 ml/min Glucose 501 H* 239 H (60-115) mg/dL Lactate 1.6 2.1 H (0.5-1.9) mmol/L Calcium 7.4 L 8.2 L (8.4-10.6) mg/dL Magnesium 1.6 1.2 L (1.5-2.6) mg/dL Total Bilirubin (0.1-1.5) mg/dL AST (12-35) U/L ALT (4-50) U/L Alkaline Phosphatase (40-150) U/L Troponin I 0.04 (0.01-0.04) ng/mL C-Reactive Protein 42.6 H (0.5-1.0) mg/dL NT-Pro-B Natriuret Pep 6460 pg/mL Total Protein (6.0-8.3) g/dL Albumin (3.3-5.0) g/dL Procalcitonin 7.16 H (<0.50) ng/mL Urine Color (Yellow) Urine Appearance (Clear) Urine pH (5.0-8.5) Ur Specific [place] (1.000-1.030) Urine Protein (Negative) Urine Glucose (UA) (Negative) Urine Ketones (Negative) Urine Blood (Negative) Urine Nitrite (Negative) Urine Bilirubin (Negative) Urine Urobilinogen (0.2-1.0) Ur Leukocyte Esterase (Negative) Urine RBC (0-2) Urine WBC (0-5) Ur Squamous Epith Cells (None-Few) Urine Bacteria (None) Stl C. diff Tox B Gene (Negative) Stl C. diff [id number] (Negative) SARS-CoV-2 (PCR) (Negative) Influenza Type A (PCR) (Negative) Influenza Type B (PCR) (Negative) RSV (PCR) (Negative) Lab Acknowledgement Test Added 09/25/23 09/24/23 09/24/23 Range/Units 03:00 21:05 17:04 WBC (4.50-11.00) K/uL Corrected WBC RBC (4.30-5.90) m/uL Hgb (13.5-17.5) gm/dL Hct (37.0-53.0) % MCV (80-100) fL MCH (26-34) pg MCHC (32-36) gm/dL RDW Coeff of Adriana (11.5-15.5) % Plt Count (140-440) K/uL Neut % (Auto) (42.0-72.0) % Lymph % (Auto) (20-44) % Sargent % (Auto) (0.0-11.0) % Eos % (Auto) (0.0-7.0) % Baso % (Auto) (0.0-3.0) % Neut # (Auto) (1.7-7.0) K/uL Lymph # (Auto) (0.90-2.90) K/uL Sargent # (Auto) (0.00-0.90) K/UL Eos # (Auto) (0.00-0.50) K/uL Baso # (Auto) (0.00-0.30) K/uL Abs Immat Gran (auto) (0.00-0.30) K/uL Imm/Tot Granulo (auto) % VBG pH (7.32-7.43) VBG pCO2 (40-50) mmHG VBG pO2 (25-47) mmHG VBG HCO3 (21-28) mmol/L Sodium (135-149) mmol/L Potassium (3.6-5.1) mmol/L Chloride (96-114) mmol/L Carbon Dioxide (20-32) mmol/L Anion Gap (7-15) mEq/L BUN (7-30) mg/dL Creatinine (0.5-1.5) mg/dL Estimated Creat Clear Estimated GFR ml/min Glucose (60-115) mg/dL Lactate 3.3 H 3.8 H (0.5-1.9) mmol/L Calcium (8.4-10.6) mg/dL Magnesium (1.5-2.6) mg/dL Total Bilirubin (0.1-1.5) mg/dL AST (12-35) U/L ALT (4-50) U/L Alkaline Phosphatase (40-150) U/L Troponin I (0.01-0.04) ng/mL C-Reactive Protein (0.5-1.0) mg/dL NT-Pro-B Natriuret Pep pg/mL Total Protein (6.0-8.3) g/dL Albumin (3.3-5.0) g/dL Procalcitonin (<0.50) ng/mL Urine Color (Yellow) Urine Appearance (Clear) Urine pH (5.0-8.5) Ur Specific [place] (1.000-1.030) Urine Protein (Negative) Urine Glucose (UA) (Negative) Urine Ketones (Negative) Urine Blood (Negative) Urine Nitrite (Negative) Urine Bilirubin (Negative) Urine Urobilinogen (0.2-1.0) Ur Leukocyte Esterase (Negative) Urine RBC (0-2) Urine WBC (0-5) Ur Squamous Epith Cells (None-Few) Urine Bacteria (None) Stl C. diff Tox B Gene Negative (Negative) Stl C. diff 027-NAP1-BI PRESUMPTIVE NEGATIVE (Negative) SARS-CoV-2 (PCR) (Negative) Influenza Type A (PCR) (Negative) Influenza Type B (PCR) (Negative) RSV (PCR) (Negative) Lab Acknowledgement 09/24/23 09/24/23 Range/Units 14:40 13:06 WBC 24.33 H (4.50-11.00) K/uL Corrected WBC RBC 4.83 (4.30-5.90) m/uL Hgb 12.5 L (13.5-17.5) gm/dL Hct 39.6 (37.0-53.0) % MCV 82 (80-100) fL MCH 26 (26-34) pg MCHC 32 (32-36) gm/dL RDW Coeff of Adriana 15.6 H (11.5-15.5) % Plt Count 174 (140-440) K/uL Neut % (Auto) 85.4 H (42.0-72.0) % Lymph % (Auto) 2.8 L (20-44) % Sargent % (Auto) 11.2 H (0.0-11.0) % Eos % (Auto) 0.0 (0.0-7.0) % Baso % (Auto) 0.1 (0.0-3.0) % Neut # (Auto) 20.80 H (1.7-7.0) K/uL Lymph # (Auto) 0.70 L (0.90-2.90) K/uL Sargent # (Auto) 2.70 H (0.00-0.90) K/UL Eos # (Auto) 0.00 (0.00-0.50) K/uL Baso # (Auto) 0.00 (0.00-0.30) K/uL Abs Immat Gran (auto) 0.10 (0.00-0.30) K/uL Imm/Tot Granulo (auto) 0.5 % VBG pH 7.379 (7.32-7.43) VBG pCO2 42 (40-50) mmHG VBG pO2 < 30.1 (25-47) mmHG VBG HCO3 25 (21-28) mmol/L Sodium 133 L (135-149) mmol/L Potassium 4.5 (3.6-5.1) mmol/L Chloride 95 L (96-114) mmol/L Carbon Dioxide 25 (20-32) mmol/L Anion Gap 13 (7-15) mEq/L BUN 27 (7-30) mg/dL Creatinine 2.0 H (0.5-1.5) mg/dL Estimated Creat Clear 25.70 Estimated GFR 33 ml/min Glucose 367 H* (60-115) mg/dL Lactate 6.0 H* (0.5-1.9) mmol/L Calcium 8.8 (8.4-10.6) mg/dL Magnesium (1.5-2.6) mg/dL Total Bilirubin 0.9 (0.1-1.5) mg/dL AST 19 (12-35) U/L ALT 26 (4-50) U/L Alkaline Phosphatase 88 (40-150) U/L Troponin I 0.02 (0.01-0.04) ng/mL C-Reactive Protein 23.4 H (0.5-1.0) mg/dL NT-Pro-B Natriuret Pep 3370 pg/mL Total Protein 7.0 (6.0-8.3) g/dL Albumin 4.0 (3.3-5.0) g/dL Procalcitonin 3.93 H (<0.50) ng/mL Urine Color Yellow (Yellow) Urine Appearance Cloudy A (Clear) Urine pH 6.0 (5.0-8.5) Ur Specific [place] 1.020 (1.000-1.030) Urine Protein 2+ A (Negative) Urine Glucose (UA) 2+ A (Negative) Urine Ketones Trace A (Negative) Urine Blood 3+ A (Negative) Urine Nitrite Positive A (Negative) Urine Bilirubin Negative (Negative) Urine Urobilinogen 0.2 (0.2-1.0) Ur Leukocyte Esterase 1+ A (Negative) Urine RBC 25-50 A (0-2) Urine WBC >100 A (0-5) Ur Squamous Epith Cells Few (None-Few) Urine Bacteria Many A (None) Stl C. diff Tox B Gene (Negative) Stl C. diff 027-NAP1-BI (Negative) SARS-CoV-2 (PCR) Negative SARS-CoV-2 (Negative) Influenza Type A (PCR) Negative PCR FLU A (Negative) Influenza Type B (PCR) Negative PCR FLU B (Negative) RSV (PCR) Negative PCR RSV (Negative) Lab Acknowledgement Impression & Recommendations Recommendations Impression & Recommendations: 83 elderly male resident of [facility] DM, HTN, dyslipidemia, hypothyroidism, CKD, underlying PROCUREMENT BUYER shunt, prior history of CVA is presenting with N/V/diarrhea x 1 day associated with hypotension, tachycardic. No fevers, chills, abdominal pain, respiratory or complaints. On admission patient was poor historian In the ED Tmax 99.8, WBC 24K, cr 2, LFT NL, lactate 6, responded to IV fluids, BCx positive for GPC in clusters. Started on IV vancomycin, IV Zosyn CT CAP (con): No intrathoracic or abdominopelvic pathology. Likely proctitis. Repeat CXR no pneumonia #GPC bacteremia likely MRSA-source? (09/23 +ve) #Sepsis/leukocytosis #S/p PICC line placement 09/24 #MCKAY on CKD #Underlying PROCUREMENT BUYER shunt Micro 09/23 BCx 09/01 bottles GPC in clusters 09/23 UCX MRSA 09/24 BCx x 2 09/25 BCx x 2 Has clinically improved remains AF, on 2 LNC, lactic acidosis resolved 6---2, slowly decreasing leukocytosis from 24 K---21 K (s/p hydrocortisone likely contributing to slowly down trending leukocytosis), CRP 35, procalcitonin 4.6 PLT 130 MCKAY resolved cr 1.2. Urine culture with MRSA likely spillage from bloodstream infection versus true UTI. Unclear source of MRSA bacteremia with negative CT CAP, no noted wounds, per primary team patient has PROCUREMENT BUYER shunt otherwise no other underlying hardware's. Initially patient did not want IV antibiotics or heroic measures and later agreeable for IV antibiotics. To note line was placed yesterday and repeat BCx obtained. Reccs: --C/w IV daptomycin 8mg/kg. Obtain CK levels --If BCx from 09/24 turns positive the PICC line will have to be removed and wait until BCx negative at least 48hr prior to new line placement --F/ daily blood cultures until bacteremia cleared --Await pending TTE --To ensure no other metastatic site of seeding including CVS, PAYROLL AUDITOR, psoas, bones, joints, eyes etc. --To check if any underlying hardware Tentative plan will need at least 4 weeks maybe longer pending bacteremia clearance/TTE results. If repeat blood cultures turn positive consider dual therapy with daptomycin and ceftaroline & DANIEL Above plan discussed with primary team in detail. Please reach out to ID if any further questions
--- NOTE | 2023-09-26 11:18 | PC.SOCIAL ---
Addendum entered by Vaishali Escoto WAREHOUSE HAND 09/26/23 16:51: Called back starting at 11:00am and left multiple emails and voicemails for [facility] [phone], requesting clarification regarding decision they can not accept pt back over the weekend. Secure emailed updated information on pt to [facility]. Call received back from [facility] at 4:15pm stating they are unable to accept pt back on Saturday due to the change in his condition requiring a PICC line and IV antibiotics. She stated they will be able to accept him on Saturday if they have the abx prescription sent on Saturday. therapeutic activities services worker to follow up as needed. Original Note: Discharge planning: therapeutic activities services worker spoke with Justina Peraza at [facility] today to update her on the pt's condition. therapeutic activities services worker explained that the pt did test positive for MRSA and also has Bacteremia and is on IV Antibiotics with a PICC line in place. Per MD, pt will need to be on IV Antibiotics in the hospital until Saturday night meaning he could discharge on Saturday morning back to [facility]. Justina stated that they would not be able to take the pt back on the weekend and that it would have to wait until Saturday. therapeutic activities services worker asked Justina again, if this worker could get her the D/C orders before the weekend, could they take the pt back on Saturday and she still said no. This worker informed this worker's canvas goods supervisor of this update and this worker's canvas goods supervisor will follow-up with Justina. Social work to follow-up as needed.
[2023-09-26] MEDS: IPRAT-ALBUT 0.5-2.5 MG/3 ML NEB 1 NEB IH (12:13)
--- NOTE | 2023-09-26 14:37 | PC.NURSE ---
Nursing Care Hours: [id number] Pt this shift calm and cooperative, alert and oriented. No c/o pain. Afebrile and sinus tachycardic. Titrated supplemental O2 from 2L to room air, spo2 resting at 90-91%. Educated on IS use, encouraged to use independently but pt has not complied. Needs further education on proper use and breathing technique. Reaching 500ml. LS auscultated crackles in anterior mid lobes bilat. No cough or mucus production. Audible wheezing noted with repositioning and transfers. PRN DuoNeb given with little change to wheezing. Three small incontinent BM's. Kathleen cares done x2, zinc oxide applied to red and sore scrotum and glutes. 2 person pivot transfer from bed to chair and chair to bed. Pt tolerated well but with obvious weakness. PICC and DAVID IV patent. Potassium replacements infused. Pt ordered lunch but then declined to eat d/t low appetite. Insulin given per schedule and sliding scale. Ferguson patent and running clear urine. Weight taken with standing scale this AM, and ECHO completed. Family in the room at bedside.
--- NOTE | 2023-09-26 18:08 | PC.NURSE ---
Addendum entered by Caryl Monterroso RN 09/26/23 18:30: Patient currently on RA with sats in the low 90s. Original Note: End of Shift: Patient pleasant and cooperative, alert and oriented. Patient vitally stable, with crackles and expiratory wheezes, BS WNL, IV running NS/KCL at 100 through PICC line in right upper arm. Patient denies pain. Patient 2 assist/pivot to chair and currently in bed. Patient had 1 small incontinent BM, ramsay intact and draining. Dinner blood sugar 289. Tele=sinus tach.
[2023-09-26 19:26] LABS: Potassium* 3.8 mmol/L (3.6-5.1)
[2023-09-26] MEDS: GABAPENTIN 300 MG CAPSULE PO (21:49)
[2023-09-26] MEDS: MIRTAZAPINE 15 MG TABLET PO (21:51)
[2023-09-26] MEDS: ENOXAPARIN 30 MG/0.3ML INJ SUBCUT (23:06)
[2023-09-27] VITALS (11 sets, daily range): BP systolic 123–159; BP diastolic 53–85; PULSE 96–116; RESP 20–24; TEMP 36.2–37.9; O2SAT 89–92
[2023-09-27] MEDS: 0.9 % SODIUM CH + KCL 20 mEq/L 1,000 ML 100 ML IV ×2 (04:50→15:57)
--- NOTE | 2023-09-27 05:04 | PC.NURSE ---
Patient pleasant, alert and cooperative. Remained in bed this shift. Turned and repositioned. Reported scrotum discomfort during milan cares, has otherwise denied pain. Zinc oxide cream applied to scrotum as ordered. Catheter patent and draining clear yellow urine. Patient slept well.?
[2023-09-27] MEDS: OMEPRAZOLE 20 MG CAPSULE DR 40 MG PO (06:07)
[2023-09-27] MEDS: LEVOTHYROXINE 50 MCG TABLET PO (06:08)
--- NOTE | 2023-09-27 07:25 | P.IMPN_ITS ---
Progress Note: A&P Assessment and plan (1) Sepsis: Problem details: met sepsis criteria; lactate downtrending. WBC still quite elevated. fever/tachycardia resolved. BC growing gram pos in all bottles. high grade bacteremia, MRSA in UC. Clinically patient is remarkably stable. pH is improved. will change maintenance fluids to NS with K, aware of risk of fluid overload hyperglycemia and improved stability - will d/c the hydrocortisone CT without focal findings of chest abdomen pelvis, CXR unremarkable for acute pathology; presume urosepsis Change zosyn and vanc to daptomycin Reviewed POLST with patient which indicates oral antibiotics only, however patient verbalizes wish to continue with IV antibiotics at this time - no heroic interventions - repeats am of 09/24 - no transfer. This MD understands risk of placing PICC line in a bacteremic patient. IV access was poor and biological science technician fish was challenged for 5 times to get a return for blood, risk benefit ratio we placed PICC line on the afternoon of 09/24. Will watch closely for thrombus and or continued positive blood cultures. Status: Acute (2) MRSA bacteremia: Problem details: -urosepsis from self cath as etiology vs idiopathic (no skin wounds, svp shunt?) -IV Daptomycin (8mg/kg/24hr) c/s reviewed - -will get daily blood cultures -daily CXR -we did have bicarb infusing with pH that was downtrending and creatinine returning to normal and IV hydrocortisone; both of those have been d/c -on maintenance fluids -echo 09/25 -no vegetations Consulted with ID - They agree with the daptomycin. 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 SCRIPT SENT TO 3 LINKS SO DAPTO CAN CONTINUE THERE DAILY (09/26). weekly CBC, CMP, CK necessary. If the 2nd BC comes back positive (after placement of PICC) - we need to pull the PICC line and consider PIV vs another PICC (this happened, PICC line withdrawn 09/25 - must be 48 hours neg cx to replace unless poor vascular access continues) Status: Acute (3) Urinary tract infection: Problem details: -as above -truly UTI? spillage from bacteremia? ID not sure this was true UTI Status: Acute (4) Hypothyroidism: Problem details: Continue levothyroxine Status: Acute (5) CKD (chronic kidney disease): Problem details: creatinine: 2.0 --> 1.2 Avoid nephrotoxic medications, renally dose antibiotics, trend Status: Acute (6) Type 2 diabetes mellitus: Problem details: Most recent A1c (07/23/23) 8.8, up from 6.8 in March metformin Glucose checks ACHS, ISS, diabetic diet long acting insulin detemir orderd, sliding scale Status: Acute (7) Hyperlipidemia: Problem details: Continue statin Status: Acute (8) Rectal abnormality: Problem details: CT with incidental finding showing focal eccentric thickening of the rectal wall, which can be seen with a proctitis Loose stools reported earlier today Recommend outpatient follow-up for direct visualization with colonoscopy upon resolution of symptoms to exclude underlying neoplasm Status: Acute Subjective Date Seen: 09/27/23 Interval history: Daily Progress Note - Hospital Medicine Day #: 4 CC: Gram positive sepsis OVERNIGHT UPDATES FROM STAFF & MED, LAB, IMAGING UPDATES low grade fever overnight 2nd set (after PICC placement for poor access) pos. PICC line withdrawn and tip sent for culture Electrical Checkout Mechanic having difficulty with blood draw this morning, labs ordered Shift note: Patient pleasant, alert and cooperative. Remained in bed this shift. Turned and repositioned. Reported scrotum discomfort during milan cares, has otherwise denied pain. Zinc oxide cream applied to scrotum as ordered. Catheter patent and draining clear yellow urine. Patient slept well.? I have reviewed the vital signs. Patient is hemodynamically stable. No pressors. Fever curve has mostly defervesced, 100.3 at 1700 on 09/25 Oxygen requirement is lessening- 0.5L per NC CBC is stable. White blood cell count is down to 15.5. Hemoglobin is stable. Platelets have improved. PH is stable. Electrolytes have improved and are now normal. Potassium is 3.8. His creatinine looks great at 1.0. CRP has dropped dramatically from 35-18. TOTAL CK 58 Inflammatory markers, CRP and procalcitonin have no peaked and are down trending but still quite elevated CRP 42.6 --> 35.3 --> 18 Procal 7.16 --> 4.68 (no longer checking) MRSA screen -- POSITIVE UC: MRSA BC - INITIAL SET AT ADMISSION, POSITIVE MRSA; 2ND SET (09/24) ONE POS FOR MRSA, 3RD SET (09/25) NGTD. 4TH SET (09/26) NGTD. C diff negative APPRECIATE ID RECOMMENDATIONS: --C/w IV daptomycin 8mg/kg. Obtain CK levels --If BCx from 09/24 turns positive the PICC line will have to be removed and wait until BCx negative at least 48hr prior to new line placement --F/ daily blood cultures until bacteremia cleared --Await pending TTE --To ensure no other metastatic site of seeding including CVS, CATEGORY SPECIALIST, psoas, bones, joints, eyes etc. --To check if any underlying hardware Objective: alert, doesn't look near as ill as you'd expect for given medical findings. Vitals: see above Lungs: Clear. abdomen: protuberant Cardiac: S1S2. legs: mild edema Disposition/Potential discharge - Likely to return to previous living situation. Today I spent 50minutes seeing the patient, reviewing Expanse and EPIC notes/diagnostics, discussing the care plan with our care time that includes social work, PT/OT, pharmacy, RT, penitentiary and documenting my impressions and plan in the medical record. Exam Const: Vital Signs, click to edit/add: Vital Signs - 24 hr 09/26/23 07:47 09/26/23 08:00 09/26/23 08:01 Temperature 98.5 F Pulse Rate 96 88 88 Pulse Rate [Right Pulse Oximeter] Respiratory Rate 18 Blood Pressure 137/80 Blood Pressure [Le ft Arm] Pulse Oximetry 96 93 94 Oxygen Delivery Me thod Nasal Cannula Oxygen Flow Rate 2 09/26/23 08:02 09/26/23 08:09 09/26/23 08:30 Temperature Pulse Rate 97 99 102 H Pulse Rate [Right Pulse Oximeter] Respiratory Rate Blood Pressure Blood Pressure [Le ft Arm] Pulse Oximetry 93 93 Oxygen Delivery Me thod Oxygen Flow Rate 09/26/23 09:00 09/26/23 09:30 09/26/23 10:00 Temperature Pulse Rate 96 106 H 99 Pulse Rate [Right Pulse Oximeter] Respiratory Rate Blood Pressure Blood Pressure [Le ft Arm] Pulse Oximetry 92 95 92 Oxygen Delivery Me thod Oxygen Flow Rate 09/26/23 10:04 09/26/23 10:30 09/26/23 16:14 Temperature 97.9 F 98.9 F Pulse Rate 100 104 H Pulse Rate [Right Pulse Oximeter] 102 H Respiratory Rate 20 22 Blood Pressure 128/70 Blood Pressure [Le ft Arm] 142/71 H Pulse Oximetry 91 91 91 Oxygen Delivery Me thod Nasal Cannula Room Air Oxygen Flow Rate 1 09/26/23 16:14 09/26/23 16:46 09/26/23 19:00 Temperature 100.3 F H Pulse Rate 104 H Pulse Rate [Right Pulse Oximeter] 102 H 96 Respiratory Rate 22 24 Blood Pressure Blood Pressure [Le ft Arm] 160/78 H Pulse Oximetry 90 Oxygen Delivery Me thod Room Air Oxygen Flow Rate 09/26/23 23:00 09/27/23 01:17 09/27/23 02:52 Temperature 99.5 F 98.7 F Pulse Rate 96 Pulse Rate [Right Pulse Oximeter] 100 98 Respiratory Rate 24 Blood Pressure Blood Pressure [Le ft Arm] 158/83 H 143/85 H Pulse Oximetry 90 92 Oxygen Delivery Me thod Nasal Cannula Nasal Cannula Oxygen Flow Rate 0.5 0.5 Labs Labs: Laboratory Results - last 24 hr 09/26/23 19:10 Potassium 3.8
[2023-09-27 08:02] LABS: Hematocrit 34.9 % (37.0-53.0); Mean Corpuscular HGB Conc 32 gm/dL (32-36); Mean Corpuscular Hemoglobin 26 pg (26-34); Mean Corpuscular Volume 83 fL (80-100); Platelet Count* 142 K/uL (140-440); Red Blood Count 4.23 m/uL (4.30-5.90); White Blood Count* 15.53 K/uL (4.50-11.00)
[2023-09-27 08:04] LABS: Slide Review Reflex No
[2023-09-27 08:18] LABS: Chloride* 108 mmol/L (96-114); Potassium* 3.8 mmol/L (3.6-5.1); Sodium* 137 mmol/L (135-149)
[2023-09-27 08:20] LABS: Creatine Kinase* 58 U/L (54-186)
[2023-09-27 08:21] LABS: Blood Urea Nitrogen* 12 mg/dL (7-30); Carbon Dioxide* 26 mmol/L (20-32); Est. Creatinine Clearance* 51.39; Estimated Glomerular Filt Rate 75 ml/min
[2023-09-27 08:22] LABS: Anion Gap 3 mEq/L (7-15); Calcium* 7.4 mg/dL (8.4-10.6); Glucose* 84 mg/dL (60-115)
[2023-09-27] MEDS: POTASSIUM CHLORIDE 10 MEQ CAPSULE ER 20 MEQ PO (08:25)
[2023-09-27] MEDS: ATORVASTATIN 10 MG TABLET 20 MG PO (08:26)
[2023-09-27] MEDS: TAMSULOSIN HCL 0.4 MG CAPSULE PO (08:26)
[2023-09-27] MEDS: CLOPIDOGREL 75 MG TABLET PO (08:26)
[2023-09-27] MEDS: LORATADINE 10 MG TABLET PO (08:26)
[2023-09-27] MEDS: ASPIRIN 81 MG TABLET EC PO (08:27)
[2023-09-27 08:59] LABS: C Reactive Protein* 18.4 mg/dL (0.5-1.0)
[2023-09-27] MEDS: DAPTOmycin 50 MG/ML inj 625 MG IVP (09:39)
[2023-09-27] MEDS: SODIUM CHLORIDE 0.9 % (FLUSH) 10 ML SYRINGE 5 ML IVF (09:39)
--- NOTE | 2023-09-27 09:59 | W.PM.IDPRG ---
Visit Information Visit Information Date: 09/27/23 Visit Information: Patient was not seen. Subjective Subjective Subjective: This patient recommendation is based on a telemedicine consult request which was completed asynchronously through chart review and information provided by the primary physician. The patient was not seen or examined today. The evaluation is consultative in nature and all patient care and treatment decisions can either be accepted or rejected by the patient's primary hospital-based treating physician using their own independent medical judgment for their patient. CHART REVIEW Home Medications and Allergies Home Medications and Allergies Inpatient Medications: Active Medications Generic Name Dose Route Start Last Admin Trade Name Freq PRN Reason Stop Dose Admin Acetaminophen 1,000 mg 09/24/23 16:57 09/25/23 00:15 Acetaminophen 325 Mg Tablet PO 975 mg Q6H PRN Administration Albuterol/Ipratropium 1 neb 09/26/23 11:16 09/26/23 12:13 Iprat-Albut 0.5-2.5 Mg/3 Ml Neb IH 1 neb Q2H PRN Administration Aspirin 81 mg 09/25/23 09:00 09/27/23 08:27 Aspirin 81 Mg Tablet Ec PO 81 mg DAILY ALIREZA Administration Atorvastatin Calcium 20 mg 09/25/23 09:00 09/27/23 08:26 Atorvastatin 10 Mg Tablet PO 20 mg DAILY ALIRE[facility] Administration Clopidogrel Bisulfate 75 mg 09/25/23 09:00 09/27/23 08:26 Clopidogrel 75 Mg Tablet PO 75 mg DAILY [facility] Administration Daptomycin 625 mg 09/27/23 09:00 09/27/23 09:39 Daptomycin 50 Mg/Ml Inj IVP 625 mg Q24H ALIREZA Administration Enoxaparin Sodium 30 mg 09/24/23 21:00 09/26/23 23:06 Enoxaparin 30 Mg/0.3ml Inj SUBCUT 30 mg Q24H ALIREZA Administration Gabapentin 300 mg 09/24/23 21:00 09/26/23 21:49 Gabapentin 300 Mg Capsule PO 300 mg HS ALIREZA Administration Potassium Chloride/Sodium Chloride 1,000 mls @ 100 mls/hr 09/26/23 07:30 09/27/23 04:50 0.9 % Sodium Ch + Kcl 20 Meq/L IV 100 mls/hr .Q10H ALIREZA Administration Insulin Aspart 0 unit 09/25/23 16:49 09/27/23 08:25 Insulin Aspart 100 Unit/Ml SUBCUT Not Given ACHS ALIRE[facility] Protocol Insulin Detemir 10 unit 09/25/23 20:45 09/26/23 21:44 Insulin Detemir (Levemir) 100 Unit/Ml SUBCUT 10 unit Q24H ALIRE[facility] Administration Levothyroxine Sodium 50 mcg 09/25/23 07:00 09/27/23 06:08 Levothyroxine 50 Mcg Tablet PO 50 mcg DAILY@0700 ALIRE[facility] Administration Loperamide HCl 2 mg 09/24/23 23:05 09/26/23 06:32 Loperamide Hcl 2 Mg Capsule PO 2 mg Q2H PRN Administration Diarrhea Loratadine 10 mg 09/25/23 09:00 09/27/23 08:26 Loratadine 10 Mg Tablet PO 10 mg DAILY [facility] Administration Melatonin 3 - 6 mg 09/24/23 16:57 Melatonin 3 Mg Tablet PO HS PRN Mirtazapine 15 mg 09/26/23 21:00 09/26/23 21:51 Mirtazapine 15 Mg Tablet PO 15 mg HS ALIREZA Administration Omeprazole 40 mg 09/25/23 07:00 09/27/23 06:07 Omeprazole [address] PO 40 mg DAILY@0700 [facility] Administration Ondansetron HCl 4 mg 09/24/23 16:57 Ondansetron 2 Mg/Ml Inj IVP Q4H PRN Nausea Senna/Docusate Sodium 1 tab 09/24/23 16:57 Sennosides/Docusate Tablet PO DAILY PRN Sodium Chloride 5 ml 09/24/23 16:57 09/27/23 09:39 Sodium Chloride 0.9 % (Flush) 10 Ml Syringe IVF 5 ml .FLUSH PRN Administration Sodium Chloride 5 ml 09/24/23 21:00 09/27/23 08:27 Sodium Chloride 0.9 % (Flush) 10 Ml Syringe IVF Not Given BID [facility] Tamsulosin HCl 0.4 mg 09/25/23 09:00 09/27/23 08:26 Tamsulosin Hcl 0.4 Mg Capsule PO 0.4 mg DAILY [facility] Administration Zinc Oxide 1 applic 09/25/23 21:00 09/27/23 08:28 Zinc Oxide 40 % 113 Gm Tube TOPICAL 1 applic BID ALIREZA Administration Discontinued Medications Generic Name Dose Route Start Last Admin Trade Name Freq PRN Reason Stop Dose Admin Acetaminophen 650 mg 09/24/23 16:13 09/24/23 16:25 Acetaminophen 325 Mg Tablet PO 09/24/23 16:14 650 mg ONCE ONE Administration Acetaminophen Confirm 09/24/23 16:24 Acetaminophen 325 Mg Tablet Administered 09/24/23 16:25 Dose 650 mg .ROUTE .STK-MED ONE Daptomycin 470 mg 09/26/23 08:30 09/26/23 08:59 Daptomycin 50 Mg/Ml Inj IVP 470 mg Q24H ALIREZA Administration Enoxaparin Sodium 30 mg 09/24/23 17:00 09/25/23 16:16 Enoxaparin 30 Mg/0.3ml Inj SUBCUT Not Given Q24H [facility] Hydrocortisone Sodium Succinate 100 mg 09/25/23 08:30 09/26/23 00:21 Hydrocortisone Sod Succinate 50 Mg/Ml Inj IVP 100 mg Q8H ALIREZA Administration Sodium Chloride 1,000 mls @ 500 mls/hr 09/24/23 12:37 09/24/23 14:40 0.9 % Sodium Chloride 1000 Ml IV 09/24/23 14:36 Infused .Q2H [facility] Infusion Sodium Chloride 1,000 mls @ 500 mls/hr 09/24/23 13:59 09/25/23 16:16 0.9 % Sodium Chloride 1000 Ml IV 09/24/23 15:58 Infused .Q2H [facility] Infusion Piperacillin Sod/Tazobactam 100 mls @ 200 mls/hr 09/24/23 14:51 09/24/23 15:44 Sod 3.375 gm/ Sodium Chloride IVPB 09/24/23 14:52 Infused ONCE ONE Infusion Vancomycin HCl 1,000 mg/ 260 mls @ 260 mls/hr 09/24/23 15:20 09/25/23 16:16 Sodium Chloride IVPB 09/24/23 16:19 Infused ONCE ONE Infusion Sodium Chloride 1,000 mls @ 125 mls/hr 09/24/23 17:15 09/25/23 14:59 0.9 % Sodium Chloride 1000 Ml IV Infused .Q8H [facility] Infusion Piperacillin Sod/Tazobactam 100 mls @ 200 mls/hr 09/24/23 17:30 09/26/23 06:33 Sod 2.25 gm/ Sodium Chloride IVPB Infused Q6H [facility] Infusion Vancomycin HCl 750 mg/ Sodium 257.5 mls @ 255 mls/hr 09/25/23 16:00 09/25/23 17:50 Chloride IVPB Infused Q24H [facility] Infusion Protocol Sodium Bicarbonate 150 meq/ 1,150 mls @ 150 mls/hr 09/25/23 08:30 09/26/23 16:17 Dextrose IV Infused .Q7H40M [facility] Infusion Albumin Human 25 gm in 100 mls @ 100 mls/hr 09/25/23 08:26 09/25/23 10:41 Albumin Human 25% IVPB 09/25/23 09:25 Infused ONCE ONE Infusion Magnesium Sulfate 2 gm in 50 mls @ 150 mls/hr 09/25/23 08:26 09/25/23 10:42 Magnesium Iv IVPB 09/25/23 08:45 Infused ONCE ONE Infusion Potassium Chloride 10 meq in 100 mls @ 100 mls/hr 09/26/23 08:00 09/26/23 16:18 Potassium Chloride IVPB 09/26/23 13:29 Infused Q90M [facility] Infusion IV Miscellaneous Supplies 1 each 09/25/23 09:00 Pharmacist Consult DAILY [facility] Protocol Insulin Aspart 0 unit 09/24/23 18:00 09/24/23 18:48 Insulin Aspart 100 Unit/Ml SUBCUT 3 unit TIDWM [facility] Administration Protocol Insulin Aspart 0 unit 09/24/23 23:05 09/25/23 12:39 Insulin Aspart 100 Unit/Ml SUBCUT 2 unit ACHS [facility] Administration Protocol Insulin Detemir 10 unit 09/26/23 08:00 09/26/23 08:59 Insulin Detemir (Levemir) 100 Unit/Ml SUBCUT 09/26/23 08:01 10 unit ONCE ONE Administration Ondansetron HCl 4 mg 09/24/23 12:40 09/24/23 12:40 Ondansetron 2 Mg/Ml Inj IVP 09/24/23 12:41 4 mg ONCE ONE Administration Potassium Chloride 20 meq 09/25/23 18:35 09/27/23 08:25 Potassium Chloride 10 Meq Capsule Er PO 09/27/23 08:01 20 meq BIDWM [facility] Administration Allergies Allergy/AdvReac Type Severity Reaction Status Date / Time desoximetasone Allergy Unknown Verified 01/20/23 10:54 formaldehyde Allergy Unknown Verified 01/20/23 10:54 lisinopril Allergy Unknown Verified 01/20/23 10:54 methylisothiazolinone Allergy Unknown Verified 01/20/23 10:54 Objective - Infectious Disease Objective Vital Signs: Vital Signs - 24 hr 09/26/23 10:00 09/26/23 10:04 09/26/23 10:30 Temperature 97.9 F Pulse Rate 99 100 104 H Pulse Rate [Right Pulse Oximeter] Respiratory Rate 20 Blood Pressure 128/70 Blood Pressure [Left Arm] Pulse Oximetry 92 91 91 Oxygen Delivery Method Nasal Cannula Oxygen Flow Rate 1 09/26/23 16:14 09/26/23 16:14 09/26/23 16:46 Temperature 98.9 F Pulse Rate 104 H Pulse Rate [Right Pulse Oximeter] 102 H 102 H Respiratory Rate 22 22 Blood Pressure Blood Pressure [Left Arm] 142/71 H Pulse Oximetry 91 Oxygen Delivery Method Room Air Oxygen Flow Rate 09/26/23 19:00 09/26/23 23:00 09/27/23 01:17 Temperature 100.3 F H 99.5 F Pulse Rate 96 Pulse Rate [Right Pulse Oximeter] 96 100 Respiratory Rate 24 24 Blood Pressure Blood Pressure [Left Arm] 160/78 H 158/83 H Pulse Oximetry 90 90 Oxygen Delivery Method Room Air Nasal Cannula Oxygen Flow Rate 0.5 09/27/23 02:52 09/27/23 07:00 09/27/23 08:00 Temperature 98.7 F 99.5 F Pulse Rate Pulse Rate [Right Pulse Oximeter] 98 106 H 106 H Respiratory Rate 24 24 Blood Pressure Blood Pressure [Left Arm] 143/85 H 151/81 H Pulse Oximetry 92 90 Oxygen Delivery Method Nasal Cannula Room Air Oxygen Flow Rate 0.5 Narrative: Patient was not seen or examined. Results - Infectious Disease Results Labs: 09/27/23 07:39 Blood Blood Culture - Pending 09/27/23 07:47 Blood Blood Culture - Pending 09/24/23 13:26 Blood Blood Culture - Final Gram positive cocci in cluster 09/26/23 07:00 Blood Blood Culture - Preliminary NO GROWTH AFTER 24 HOURS 09/24/23 13:06 Blood Blood Culture - Final Staphylococcus aureus 09/26/23 05:30 Blood Blood Culture - Preliminary NO GROWTH AFTER 24 HOURS 09/26/23 18:53 Catheter Tip - Other Wound Culture - Preliminary Culture in Progress 09/25/23 17:02 Blood Blood Culture - Preliminary Gram positive cocci 09/25/23 16:55 Blood Blood Culture - Preliminary NO GROWTH AFTER 24 HOURS 09/24/23 Unknown Urine,Clean Catch Urine Culture - Final Staphylococcus aureus 09/24/23 21:11 Nares MRSA Screen - Final Laboratory Tests 09/27/23 09/26/23 09/26/23 Range/Units 07:39 19:10 05:30 WBC 15.53 H (4.50-11.00) K/uL Corrected WBC RBC 4.23 L (4.30-5.90) m/uL Hgb 11.0 L (13.5-17.5) gm/dL Hct 34.9 L (37.0-53.0) % MCV 83 (80-100) fL MCH 26 (26-34) pg MCHC 32 (32-36) gm/dL RDW Coeff of Adriana (11.5-15.5) % Plt Count 142 130 L (140-440) K/uL Neut % (Auto) Cancelled (42.0-72.0) % Lymph % (Auto) Cancelled (20-44) % Harvey % (Auto) Cancelled (0.0-11.0) % Eos % (Auto) Cancelled (0.0-7.0) % Baso % (Auto) Cancelled (0.0-3.0) % Neut # (Auto) Cancelled (1.7-7.0) K/uL Lymph # (Auto) Cancelled (0.90-2.90) K/uL Harvey # (Auto) Cancelled (0.00-0.90) K/UL Eos # (Auto) Cancelled (0.00-0.50) K/uL Baso # (Auto) Cancelled (0.00-0.30) K/uL Abs Immat Gran (auto) Cancelled (0.00-0.30) K/uL Imm/Tot Granulo (auto) Cancelled % VBG pH 7.441 H (7.32-7.43) VBG pCO2 50 (40-50) mmHG VBG pO2 40.7 (25-47) mmHG VBG HCO3 34 H (21-28) mmol/L Sodium 137 137 (135-149) mmol/L Potassium 3.8 3.8 2.9 L* (3.6-5.1) mmol/L Chloride 108 98 (96-114) mmol/L Carbon Dioxide 26 35 H (20-32) mmol/L Anion Gap 3 L 4 L (7-15) mEq/L BUN 12 20 (7-30) mg/dL Creatinine 1.0 1.2 (0.5-1.5) mg/dL Estimated Creat Clear 51.39 42.83 Estimated GFR 75 60 ml/min Glucose 84 317 H (60-115) mg/dL Lactate 1.0 (0.5-1.9) mmol/L Calcium 7.4 L 7.4 L (8.4-10.6) mg/dL Magnesium 1.6 (1.5-2.6) mg/dL Total Bilirubin 0.4 (0.1-1.5) mg/dL AST 16 (12-35) U/L ALT 11 (4-50) U/L Alkaline Phosphatase 82 (40-150) U/L Total Creatine Kinase 58 (54-186) U/L Troponin I < 0.01 L (0.01-0.04) ng/mL C-Reactive Protein 18.4 H 35.3 H (0.5-1.0) mg/dL NT-Pro-B Natriuret Pep 5060 pg/mL Total Protein 5.9 L (6.0-8.3) g/dL Albumin 3.1 L (3.3-5.0) g/dL Procalcitonin 4.68 H (<0.50) ng/mL Urine Color (Yellow) Urine Appearance (Clear) Urine pH (5.0-8.5) Ur Specific [place] (1.000-1.030) Urine Protein (Negative) Urine Glucose (UA) (Negative) Urine Ketones (Negative) Urine Blood (Negative) Urine Nitrite (Negative) Urine Bilirubin (Negative) Urine Urobilinogen (0.2-1.0) Ur Leukocyte Esterase (Negative) Urine RBC (0-2) Urine WBC (0-5) Ur Squamous Epith Cells (None-Few) Urine Bacteria (None) Stl C. diff Tox B Gene (Negative) Stl C. diff 027-NAP1-BI (Negative) SARS-CoV-2 (PCR) (Negative) Influenza Type A (PCR) (Negative) Influenza Type B (PCR) (Negative) RSV (PCR) (Negative) Lab Acknowledgement 09/26/23 09/26/23 09/26/23 Range/Units 05:30 05:30 05:30 WBC (4.50-11.00) K/uL Corrected WBC RBC (4.30-5.90) m/uL Hgb (13.5-17.5) gm/dL Hct (37.0-53.0) % MCV 81 (80-100) fL MCH 26 Cancelled (26-34) pg MCHC 32 Cancelled (32-36) gm/dL RDW Coeff of Adriana Cancelled (11.5-15.5) % Plt Count Cancelled (140-440) K/uL Neut % (Auto) (42.0-72.0) % Lymph % (Auto) (20-44) % Harvey % (Auto) (0.0-11.0) % Eos % (Auto) (0.0-7.0) % Baso % (Auto) (0.0-3.0) % Neut # (Auto) (1.7-7.0) K/uL Lymph # (Auto) (0.90-2.90) K/uL Harvey # (Auto) (0.00-0.90) K/UL Eos # (Auto) (0.00-0.50) K/uL Baso # (Auto) (0.00-0.30) K/uL Abs Immat Gran (auto) (0.00-0.30) K/uL Imm/Tot Granulo (auto) % VBG pH (7.32-7.43) VBG pCO2 (40-50) mmHG VBG pO2 (25-47) mmHG VBG HCO3 (21-28) mmol/L Sodium (135-149) mmol/L Potassium (3.6-5.1) mmol/L Chloride (96-114) mmol/L Carbon Dioxide (20-32) mmol/L Anion Gap (7-15) mEq/L BUN (7-30) mg/dL Creatinine (0.5-1.5) mg/dL Estimated Creat Clear Estimated GFR ml/min Glucose (60-115) mg/dL Lactate (0.5-1.9) mmol/L Calcium (8.4-10.6) mg/dL Magnesium (1.5-2.6) mg/dL Total Bilirubin (0.1-1.5) mg/dL AST (12-35) U/L ALT (4-50) U/L Alkaline Phosphatase (40-150) U/L Total Creatine Kinase (54-186) U/L Troponin I (0.01-0.04) ng/mL C-Reactive Protein (0.5-1.0) mg/dL NT-Pro-B Natriuret Pep pg/mL Total Protein (6.0-8.3) g/dL Albumin (3.3-5.0) g/dL Procalcitonin (<0.50) ng/mL Urine Color (Yellow) Urine Appearance (Clear) Urine pH (5.0-8.5) Ur Specific [place] (1.000-1.030) Urine Protein (Negative) Urine Glucose (UA) (Negative) Urine Ketones (Negative) Urine Blood (Negative) Urine Nitrite (Negative) Urine Bilirubin (Negative) Urine Urobilinogen (0.2-1.0) Ur Leukocyte Esterase (Negative) Urine RBC (0-2) Urine WBC (0-5) Ur Squamous Epith Cells (None-Few) Urine Bacteria (None) Stl C. diff Tox B Gene (Negative) Stl C. diff 027-NAP1-BI (Negative) SARS-CoV-2 (PCR) (Negative) Influenza Type A (PCR) (Negative) Influenza Type B (PCR) (Negative) RSV (PCR) (Negative) Lab Acknowledgement 09/26/23 09/26/23 09/26/23 Range/Units 05:30 05:30 05:30 WBC (4.50-11.00) K/uL Corrected WBC RBC 4.11 L (4.30-5.90) m/uL Hgb 10.8 L Cancelled (13.5-17.5) gm/dL Hct 33.4 L Cancelled (37.0-53.0) % MCV Cancelled (80-100) fL MCH (26-34) pg MCHC (32-36) gm/dL RDW Coeff of Adriana (11.5-15.5) % Plt Count (140-440) K/uL Neut % (Auto) (42.0-72.0) % Lymph % (Auto) (20-44) % Harvey % (Auto) (0.0-11.0) % Eos % (Auto) (0.0-7.0) % Baso % (Auto) (0.0-3.0) % Neut # (Auto) (1.7-7.0) K/uL Lymph # (Auto) (0.90-2.90) K/uL Harvey # (Auto) (0.00-0.90) K/UL Eos # (Auto) (0.00-0.50) K/uL Baso # (Auto) (0.00-0.30) K/uL Abs Immat Gran (auto) (0.00-0.30) K/uL Imm/Tot Granulo (auto) % VBG pH (7.32-7.43) VBG pCO2 (40-50) mmHG VBG pO2 (25-47) mmHG VBG HCO3 (21-28) mmol/L Sodium (135-149) mmol/L Potassium (3.6-5.1) mmol/L Chloride (96-114) mmol/L Carbon Dioxide (20-32) mmol/L Anion Gap (7-15) mEq/L BUN (7-30) mg/dL Creatinine (0.5-1.5) mg/dL Estimated Creat Clear Estimated GFR ml/min Glucose (60-115) mg/dL Lactate (0.5-1.9) mmol/L Calcium (8.4-10.6) mg/dL Magnesium (1.5-2.6) mg/dL Total Bilirubin (0.1-1.5) mg/dL AST (12-35) U/L ALT (4-50) U/L Alkaline Phosphatase (40-150) U/L Total Creatine Kinase (54-186) U/L Troponin I (0.01-0.04) ng/mL C-Reactive Protein (0.5-1.0) mg/dL NT-Pro-B Natriuret Pep pg/mL Total Protein (6.0-8.3) g/dL Albumin (3.3-5.0) g/dL Procalcitonin (<0.50) ng/mL Urine Color (Yellow) Urine Appearance (Clear) Urine pH (5.0-8.5) Ur Specific [place] (1.000-1.030) Urine Protein (Negative) Urine Glucose (UA) (Negative) Urine Ketones (Negative) Urine Blood (Negative) Urine Nitrite (Negative) Urine Bilirubin (Negative) Urine Urobilinogen (0.2-1.0) Ur Leukocyte Esterase (Negative) Urine RBC (0-2) Urine WBC (0-5) Ur Squamous Epith Cells (None-Few) Urine Bacteria (None) Stl C. diff Tox B Gene (Negative) Stl C. diff 027-NAP1-BI (Negative) SARS-CoV-2 (PCR) (Negative) Influenza Type A (PCR) (Negative) Influenza Type B (PCR) (Negative) RSV (PCR) (Negative) Lab Acknowledgement 09/26/23 09/26/23 09/25/23 Range/Units 05:30 05:30 16:55 WBC 21.67 H Cancelled (4.50-11.00) K/uL Corrected WBC Cancelled RBC Cancelled (4.30-5.90) m/uL Hgb (13.5-17.5) gm/dL Hct (37.0-53.0) % MCV (80-100) fL MCH (26-34) pg MCHC (32-36) gm/dL RDW Coeff of Adriana (11.5-15.5) % Plt Count (140-440) K/uL Neut % (Auto) (42.0-72.0) % Lymph % (Auto) (20-44) % Harvey % (Auto) (0.0-11.0) % Eos % (Auto) (0.0-7.0) % Baso % (Auto) (0.0-3.0) % Neut # (Auto) (1.7-7.0) K/uL Lymph # (Auto) (0.90-2.90) K/uL Harvey # (Auto) (0.00-0.90) K/UL Eos # (Auto) (0.00-0.50) K/uL Baso # (Auto) (0.00-0.30) K/uL Abs Immat Gran (auto) (0.00-0.30) K/uL Imm/Tot Granulo (auto) % VBG pH 7.426 (7.32-7.43) VBG pCO2 40 (40-50) mmHG VBG pO2 45.9 (25-47) mmHG VBG HCO3 26 (21-28) mmol/L Sodium 133 L (135-149) mmol/L Potassium 3.5 L (3.6-5.1) mmol/L Chloride 101 (96-114) mmol/L Carbon Dioxide 29 (20-32) mmol/L Anion Gap 3 L (7-15) mEq/L BUN 24 (7-30) mg/dL Creatinine 1.5 (0.5-1.5) mg/dL Estimated Creat Clear 34.26 Estimated GFR 46 ml/min Glucose 501 H* (60-115) mg/dL Lactate 1.6 (0.5-1.9) mmol/L Calcium 7.4 L (8.4-10.6) mg/dL Magnesium 1.6 (1.5-2.6) mg/dL Total Bilirubin (0.1-1.5) mg/dL AST (12-35) U/L ALT (4-50) U/L Alkaline Phosphatase (40-150) U/L Total Creatine Kinase (54-186) U/L Troponin I (0.01-0.04) ng/mL C-Reactive Protein (0.5-1.0) mg/dL NT-Pro-B Natriuret Pep pg/mL Total Protein (6.0-8.3) g/dL Albumin (3.3-5.0) g/dL Procalcitonin (<0.50) ng/mL Urine Color (Yellow) Urine Appearance (Clear) Urine pH (5.0-8.5) Ur Specific [place] (1.000-1.030) Urine Protein (Negative) Urine Glucose (UA) (Negative) Urine Ketones (Negative) Urine Blood (Negative) Urine Nitrite (Negative) Urine Bilirubin (Negative) Urine Urobilinogen (0.2-1.0) Ur Leukocyte Esterase (Negative) Urine RBC (0-2) Urine WBC (0-5) Ur Squamous Epith Cells (None-Few) Urine Bacteria (None) Stl C. diff Tox B Gene (Negative) Stl C. diff 027-NAP1-BI (Negative) SARS-CoV-2 (PCR) (Negative) Influenza Type A (PCR) (Negative) Influenza Type B (PCR) (Negative) RSV (PCR) (Negative) Lab Acknowledgement 09/25/23 09/25/23 09/25/23 Range/Units 07:46 07:13 03:00 WBC 23.27 H (4.50-11.00) K/uL Corrected WBC RBC 4.97 (4.30-5.90) m/uL Hgb 13.0 L (13.5-17.5) gm/dL Hct 41.1 (37.0-53.0) % MCV 83 (80-100) fL MCH 26 (26-34) pg MCHC 32 (32-36) gm/dL RDW Coeff of Adriana (11.5-15.5) % Plt Count 140 (140-440) K/uL Neut % (Auto) (42.0-72.0) % Lymph % (Auto) (20-44) % Harvey % (Auto) (0.0-11.0) % Eos % (Auto) (0.0-7.0) % Baso % (Auto) (0.0-3.0) % Neut # (Auto) (1.7-7.0) K/uL Lymph # (Auto) (0.90-2.90) K/uL Harvey # (Auto) (0.00-0.90) K/UL Eos # (Auto) (0.00-0.50) K/uL Baso # (Auto) (0.00-0.30) K/uL Abs Immat Gran (auto) (0.00-0.30) K/uL Imm/Tot Granulo (auto) % VBG pH 7.304 L (7.32-7.43) VBG pCO2 48 (40-50) mmHG VBG pO2 31.4 (25-47) mmHG VBG HCO3 24 (21-28) mmol/L Sodium 138 (135-149) mmol/L Potassium 4.1 (3.6-5.1) mmol/L Chloride 106 (96-114) mmol/L Carbon Dioxide 24 (20-32) mmol/L Anion Gap 8 (7-15) mEq/L BUN 28 (7-30) mg/dL Creatinine 1.7 H (0.5-1.5) mg/dL Estimated Creat Clear 30.23 Estimated GFR 40 ml/min Glucose 239 H (60-115) mg/dL Lactate 2.1 H (0.5-1.9) mmol/L Calcium 8.2 L (8.4-10.6) mg/dL Magnesium 1.2 L (1.5-2.6) mg/dL Total Bilirubin (0.1-1.5) mg/dL AST (12-35) U/L ALT (4-50) U/L Alkaline Phosphatase (40-150) U/L Total Creatine Kinase (54-186) U/L Troponin I 0.04 (0.01-0.04) ng/mL C-Reactive Protein 42.6 H (0.5-1.0) mg/dL NT-Pro-B Natriuret Pep 6460 pg/mL Total Protein (6.0-8.3) g/dL Albumin (3.3-5.0) g/dL Procalcitonin 7.16 H (<0.50) ng/mL Urine Color (Yellow) Urine Appearance (Clear) Urine pH (5.0-8.5) Ur Specific [place] (1.000-1.030) Urine Protein (Negative) Urine Glucose (UA) (Negative) Urine Ketones (Negative) Urine Blood (Negative) Urine Nitrite (Negative) Urine Bilirubin (Negative) Urine Urobilinogen (0.2-1.0) Ur Leukocyte Esterase (Negative) Urine RBC (0-2) Urine WBC (0-5) Ur Squamous Epith Cells (None-Few) Urine Bacteria (None) Stl C. diff Tox B Gene Negative (Negative) Stl C. diff 027-NAP1-BI PRESUMPTIVE NEGATIVE (Negative) SARS-CoV-2 (PCR) (Negative) Influenza Type A (PCR) (Negative) Influenza Type B (PCR) (Negative) RSV (PCR) (Negative) Lab Acknowledgement Test Added 09/24/23 09/24/23 09/24/23 Range/Units 21:05 17:04 14:40 WBC (4.50-11.00) K/uL Corrected WBC RBC (4.30-5.90) m/uL Hgb (13.5-17.5) gm/dL Hct (37.0-53.0) % MCV (80-100) fL MCH (26-34) pg MCHC (32-36) gm/dL RDW Coeff of Adriana (11.5-15.5) % Plt Count (140-440) K/uL Neut % (Auto) (42.0-72.0) % Lymph % (Auto) (20-44) % Harvey % (Auto) (0.0-11.0) % Eos % (Auto) (0.0-7.0) % Baso % (Auto) (0.0-3.0) % Neut # (Auto) (1.7-7.0) K/uL Lymph # (Auto) (0.90-2.90) K/uL Harvey # (Auto) (0.00-0.90) K/UL Eos # (Auto) (0.00-0.50) K/uL Baso # (Auto) (0.00-0.30) K/uL Abs Immat Gran (auto) (0.00-0.30) K/uL Imm/Tot Granulo (auto) % VBG pH (7.32-7.43) VBG pCO2 (40-50) mmHG VBG pO2 (25-47) mmHG VBG HCO3 (21-28) mmol/L Sodium (135-149) mmol/L Potassium (3.6-5.1) mmol/L Chloride (96-114) mmol/L Carbon Dioxide (20-32) mmol/L Anion Gap (7-15) mEq/L BUN (7-30) mg/dL Creatinine (0.5-1.5) mg/dL Estimated Creat Clear Estimated GFR ml/min Glucose (60-115) mg/dL Lactate 3.3 H 3.8 H (0.5-1.9) mmol/L Calcium (8.4-10.6) mg/dL Magnesium (1.5-2.6) mg/dL Total Bilirubin (0.1-1.5) mg/dL AST (12-35) U/L ALT (4-50) U/L Alkaline Phosphatase (40-150) U/L Total Creatine Kinase (54-186) U/L Troponin I (0.01-0.04) ng/mL C-Reactive Protein (0.5-1.0) mg/dL NT-Pro-B Natriuret Pep pg/mL Total Protein (6.0-8.3) g/dL Albumin (3.3-5.0) g/dL Procalcitonin (<0.50) ng/mL Urine Color Yellow (Yellow) Urine Appearance Cloudy A (Clear) Urine pH 6.0 (5.0-8.5) Ur Specific [place] 1.020 (1.000-1.030) Urine Protein 2+ A (Negative) Urine Glucose (UA) 2+ A (Negative) Urine Ketones Trace A (Negative) Urine Blood 3+ A (Negative) Urine Nitrite Positive A (Negative) Urine Bilirubin Negative (Negative) Urine Urobilinogen 0.2 (0.2-1.0) Ur Leukocyte Esterase 1+ A (Negative) Urine RBC 25-50 A (0-2) Urine WBC >100 A (0-5) Ur Squamous Epith Cells Few (None-Few) Urine Bacteria Many A (None) Stl C. diff Tox B Gene (Negative) Stl C. diff [id number]-NAP1-BI (Negative) SARS-CoV-2 (PCR) (Negative) Influenza Type A (PCR) (Negative) Influenza Type B (PCR) (Negative) RSV (PCR) (Negative) Lab Acknowledgement 09/24/23 Range/Units 13:06 WBC 24.33 H (4.50-11.00) K/uL Corrected WBC RBC 4.83 (4.30-5.90) m/uL Hgb 12.5 L (13.5-17.5) gm/dL Hct 39.6 (37.0-53.0) % MCV 82 (80-100) fL MCH 26 (26-34) pg MCHC 32 (32-36) gm/dL RDW Coeff of Adriana 15.6 H (11.5-15.5) % Plt Count 174 (140-440) K/uL Neut % (Auto) 85.4 H (42.0-72.0) % Lymph % (Auto) 2.8 L (20-44) % Harvey % (Auto) 11.2 H (0.0-11.0) % Eos % (Auto) 0.0 (0.0-7.0) % Baso % (Auto) 0.1 (0.0-3.0) % Neut # (Auto) 20.80 H (1.7-7.0) K/uL Lymph # (Auto) 0.70 L (0.90-2.90) K/uL Harvey # (Auto) 2.70 H (0.00-0.90) K/UL Eos # (Auto) 0.00 (0.00-0.50) K/uL Baso # (Auto) 0.00 (0.00-0.30) K/uL Abs Immat Gran (auto) 0.10 (0.00-0.30) K/uL Imm/Tot Granulo (auto) 0.5 % VBG pH 7.379 (7.32-7.43) VBG pCO2 42 (40-50) mmHG VBG pO2 < 30.1 (25-47) mmHG VBG HCO3 25 (21-28) mmol/L Sodium 133 L (135-149) mmol/L Potassium 4.5 (3.6-5.1) mmol/L Chloride 95 L (96-114) mmol/L Carbon Dioxide 25 (20-32) mmol/L Anion Gap 13 (7-15) mEq/L BUN 27 (7-30) mg/dL Creatinine 2.0 H (0.5-1.5) mg/dL Estimated Creat Clear 25.70 Estimated GFR 33 ml/min Glucose 367 H* (60-115) mg/dL Lactate 6.0 H* (0.5-1.9) mmol/L Calcium 8.8 (8.4-10.6) mg/dL Magnesium (1.5-2.6) mg/dL Total Bilirubin 0.9 (0.1-1.5) mg/dL AST 19 (12-35) U/L ALT 26 (4-50) U/L Alkaline Phosphatase 88 (40-150) U/L Total Creatine Kinase (54-186) U/L Troponin I 0.02 (0.01-0.04) ng/mL C-Reactive Protein 23.4 H (0.5-1.0) mg/dL NT-Pro-B Natriuret Pep 3370 pg/mL Total Protein 7.0 (6.0-8.3) g/dL Albumin 4.0 (3.3-5.0) g/dL Procalcitonin 3.93 H (<0.50) ng/mL Urine Color (Yellow) Urine Appearance (Clear) Urine pH (5.0-8.5) Ur Specific [place] (1.000-1.030) Urine Protein (Negative) Urine Glucose (UA) (Negative) Urine Ketones (Negative) Urine Blood (Negative) Urine Nitrite (Negative) Urine Bilirubin (Negative) Urine Urobilinogen (0.2-1.0) Ur Leukocyte Esterase (Negative) Urine RBC (0-2) Urine WBC (0-5) Ur Squamous Epith Cells (None-Few) Urine Bacteria (None) Stl C. diff Tox B Gene (Negative) Stl C. diff [id number]-NAP1-[id number] (Negative) SARS-CoV-2 (PCR) Negative SARS-CoV-2 (Negative) Influenza Type A (PCR) Negative PCR FLU A (Negative) Influenza Type B (PCR) Negative PCR FLU B (Negative) RSV (PCR) Negative PCR RSV (Negative) Lab Acknowledgement Assessment and Plan Assessment and Plan Assessment and Plan: 83 elderly male resident of [facility] DM, HTN, dyslipidemia, hypothyroidism, CKD, underlying LEATHER GRAINER shunt, prior history of CVA is presenting with N/V/diarrhea x 1 day associated with hypotension, tachycardic. No fevers, chills, abdominal pain, respiratory or complaints. On admission patient was poor historian In the ED Tmax 99.8, WBC 24K, cr 2, LFT NL, lactate 6, responded to IV fluids, BCx positive for GPC in clusters. Started on IV vancomycin, IV Zosyn CT CAP (con): No intrathoracic or abdominopelvic pathology. Likely proctitis. Repeat CXR no pneumonia #MRSA Bacteremia -source? (09/23, +ve) clearing #Sepsis/leukocytosis-- Improved #S/p PICC line placement 09/24 s/p removal 09/25 #MCKAY on CKD #Underlying LEATHER GRAINER shunt Micro 09/23 BCx 3/4 bottles MRSA (S clindamycin, daptomycin, doxycycline, gentamicin, Zyvox, rifampin, tetracyclines, tigecycline, Bactrim, vancomycin) 09/23 UCX MRSA 09/24 BCx x 1/4 bottles GPC 09/25 BCx x 2 09/26 Pending Has clinically improved remains AF, on 2 LNC, lactic acidosis resolved 6---2, slowly decreasing leukocytosis from 24 K---21 K (s/p hydrocortisone likely contributing to slowly down trending leukocytosis), CRP 35, procalcitonin 4.6 PLT 130 MCKAY resolved cr 1.2. Urine culture with MRSA likely spillage from bloodstream infection versus true UTI. Unclear source of MRSA bacteremia with negative CT CAP, no noted wounds, per primary team patient has LEATHER GRAINER shunt otherwise no other underlying hardware's. Initially patient did not want IV antibiotics or heroic measures and later agreeable for IV antibiotics. To note line was placed 09/24 removed on 09/25 given +ve Bcx. 09/26: Leukocytosis improved 15 K, cr 1, CRP down to 18. Plan to stop hydrocortisone today Reccs: --C/w IV daptomycin 8mg/kg. CK 58 --F/ Bcx 09/25 & 09/26 --Verbal result TTE no evidence of vegetations --No other underlying hardwares/implants --OK for picc placement once Bcx clear for 48 hrs --Consider Panorex- poor dentition If Bcx from 09/25 c/to be Negative tentative plan will need at ~ 4 weeks (09/25-10/22). If Bcx turns positive consider dual therapy with daptomycin and ceftaroline & DANIEL While on IV antibiotics obtain weekly labs including CBCD, CMP and CK levels. Please make arrangements to be followed by PCP. 3 days after completion of IV Abx repeat Surveillance Bcx to ensure they are Neg. Above plan discussed with primary team in detail. ID will not be able to follow the patient over the weekend. [facility] available only for telephonic calls ([phone]) over the weekend. If patient is still in-house we will follow back on Saturday.
--- NOTE | 2023-09-27 10:25 | PC.SOCIAL ---
Discharge planning: molding utility worker secure emailed the prescription for IV Antibiotics for the pt to [facility] this morning. [facility] plans to get the IV Antibiotic so they are ready for the pt when he returns on Saturday. Social work to follow-up as needed.
[2023-09-27] MEDS: ACETAMINOPHEN 325 MG TABLET 1000 MG PO ×2 (13:19→21:02)
[2023-09-27] MEDS: LOPERAMIDE HCL 2 MG CAPSULE PO (16:50)
--- NOTE | 2023-09-27 19:34 | PC.NURSE ---
Poor appetite today, encouraging fluids. Elevated temps as high at 100.1. Bp's 120's systolic and HR mildly tachycardic in the low 100's. C/o of persistent low back pain throughout the day, minimal relief with changing positions but did state PRN Tylenol was effective to manage this. Daughter and sisters in to visit today and received update from fiction writer and from MD. New IV to right hand placed by anesthesia this afternoon.
[2023-09-27] MEDS: GABAPENTIN 300 MG CAPSULE PO (20:15)
[2023-09-27] MEDS: MIRTAZAPINE 15 MG TABLET PO (20:15)
[2023-09-27] MEDS: ENOXAPARIN 30 MG/0.3ML INJ SUBCUT (20:17)
[2023-09-27] MEDS: INSULIN ASPART 100 UNIT/ML SUBCUT (21:02)
[2023-09-27] MEDS: MELATONIN 3 MG TABLET PO (21:03)
[2023-09-28] VITALS (9 sets, daily range): BP systolic 144–170; BP diastolic 59–78; PULSE 83–101; RESP 20–22; TEMP 36.4–37.2; O2SAT 90–95
[2023-09-28] MEDS: 0.9 % SODIUM CH + KCL 20 mEq/L 1,000 ML 100 ML IV ×2 (01:27→17:24)
[2023-09-28] MEDS: OMEPRAZOLE 20 MG CAPSULE DR 40 MG PO (05:43)
[2023-09-28] MEDS: ACETAMINOPHEN 500 MG TABLET 1000 MG PO ×3 (05:44→17:53)
[2023-09-28] MEDS: LEVOTHYROXINE 50 MCG TABLET PO (05:44)
--- NOTE | 2023-09-28 06:00 | PC.NURSE ---
Patient pleasant, alert and cooperative. Heart rate elevated to 120's last evening when transferring to toilet with easy stand. Dr Lewis updated. HR 96 to low 100's remainder of night. Remained in bed since that time. O2 sats 89-95% on 0.5 LPM. PRN Melatonin given at HS and PRN Tylenol given at this morning for c/o back pain. Patient slept well. Catheter patent and draining clear yellow urine.
[2023-09-28 06:56] LABS: Basophils Absolute Auto 0.03 K/uL (0.00-0.30); Basophils Percent Auto 0.3 % (0.0-3.0); Eosinophils Absolute Auto 0.15 K/uL (0.00-0.50); Eosinophils Percent Auto 1.4 % (0.0-7.0); Hematocrit 33.9 % (37.0-53.0); Hemoglobin* 10.6 gm/dL (13.5-17.5); Immature Granulocytes Abs Auto 0.15 K/uL (0.00-0.30); Immature Granulocytes Pct Auto 1.4 %; Lymphocytes Percent Auto 6.2 % (20-44); Mean Corpuscular HGB Conc 31 gm/dL (32-36); Mean Corpuscular Hemoglobin 26 pg (26-34); Mean Corpuscular Volume 83 fL (80-100); Monocytes Percent Auto 7.6 % (0.0-11.0); Neutrophils Percent Auto 83.1 % (42.0-72.0); Platelet Count* 147 K/uL (140-440); RDW Coefficient of Variation % 15.8 % (11.5-15.5); Red Blood Count 4.11 m/uL (4.30-5.90); White Blood Count* 10.49 K/uL (4.50-11.00)
[2023-09-28 06:58] LABS: Slide Review Reflex No
[2023-09-28 07:17] LABS: Albumin* 2.9 g/dL (3.3-5.0); Chloride* 110 mmol/L (96-114)
[2023-09-28 07:18] LABS: Sodium* 137 mmol/L (135-149)
[2023-09-28 07:20] LABS: Bilirubin Total* 0.3 mg/dL (0.1-1.5); Creatinine* 0.9 mg/dL (0.5-1.5); Est. Creatinine Clearance* 51.39; Estimated Glomerular Filt Rate 85 ml/min
[2023-09-28 07:21] LABS: Alanine Aminotransferase* 9 U/L (4-50); Alkaline Phosphatase* 87 U/L (40-150); Anion Gap 5 mEq/L (7-15); Aspartate Amino Transferase* 14 U/L (12-35); Blood Urea Nitrogen* 12 mg/dL (7-30); Carbon Dioxide* 22 mmol/L (20-32); Creatine Kinase* 42 U/L (54-186); Glucose* 175 mg/dL (60-115); Total Protein* 5.7 g/dL (6.0-8.3)
[2023-09-28 07:22] LABS: Calcium* 7.7 mg/dL (8.4-10.6)
[2023-09-28 07:38] LABS: NT Pro B Type NatriureticPept* 4710 pg/mL
[2023-09-28] MEDS: OXYCODONE 5 MG TABLET PO ×2 (07:44→17:53)
[2023-09-28 07:47] LABS: C Reactive Protein* 23.7 mg/dL (0.5-1.0)
[2023-09-28] MEDS: INSULIN ASPART 100 UNIT/ML SUBCUT ×3 (08:44→17:49)
[2023-09-28] MEDS: TAMSULOSIN HCL 0.4 MG CAPSULE PO (08:44)
[2023-09-28] MEDS: LORATADINE 10 MG TABLET PO (08:44)
[2023-09-28] MEDS: ASPIRIN 81 MG TABLET EC PO (08:45)
[2023-09-28] MEDS: CLOPIDOGREL 75 MG TABLET PO (08:45)
--- NOTE | 2023-09-28 09:44 | PC.NURSE ---
Per [facility] patient's BILLING SPECIALIST shunt is Series 10/ [employer] Strata 2, runs from right lateral ventricle to right lower quad. This information was given to imaging who spoke with radiologist. Patient would be unable to have MRI done here as valves in shunt can move during MRI and they would need to be tested before and after test. Per imaging, patient would need to transfer for this. Dr. Debbie gerber.
[2023-09-28] MEDS: SODIUM CHLORIDE 0.9 % (FLUSH) 10 ML SYRINGE 5 ML IVF (10:19)
[2023-09-28] MEDS: DAPTOmycin 50 MG/ML inj 625 MG IVP (10:19)
--- NOTE | 2023-09-28 10:49 | P.IMPN_ITS ---
Progress Note: A&P Assessment and plan (1) Sepsis: Problem details: On admission patient met sepsis criteria; laboratory testing shows improvement in fever. Blood pressures been good. Persistent mild tachycardia. Borderline O2 sats requiring minimal oxygen periodically, primarily when he sleeps. Continue daptomycin. Reviewed POLST with patient which indicates oral antibiotics only, however patient verbalizes wish to continue with IV antibiotics at this time - no heroic interventions - repeats am of 09/24 - no transfer. Continue discussed with patient has he may need transfer to tertiary care to identify paraspinal infection or endocarditis Status: Acute (2) MRSA bacteremia: Problem details: Continued positive blood cultures. On daptomycin 8 milligrams/kg IV daily. Source of infection unclear. May need transfer for MRI of the spine due to presence of shunt. May need transfer for DANEIL to evaluate for endocarditis. So far patient has declined transfer. Status: Acute (3) Urinary tract infection: Problem details: MRSA in urine. Due to MRSA bacteremia? Status: Acute (4) Hypothyroidism: Problem details: Continue levothyroxine Status: Acute (5) CKD (chronic kidney disease): Problem details: creatinine: 2.0 --> 1.2 Avoid nephrotoxic medications, renally dose antibiotics, trend Status: Acute (6) Type 2 diabetes mellitus: Problem details: Most recent A1c (07/23/23) 8.8, up from 6.8 in March Hold metformin Glucose checks ACHS, ISS, diabetic diet long acting insulin detemir orderd, sliding scale. Blood sugar control improving. Status: Acute (7) Hyperlipidemia: Problem details: Hold statin while on daptomycin due to risks of rhabdomyolysis Status: Acute (8) Rectal abnormality: Problem details: CT with incidental finding showing focal eccentric thickening of the rectal wall, which can be seen with a proctitis Loose stools reported earlier today Recommend outpatient follow-up for direct visualization with colonoscopy upon resolution of symptoms to exclude underlying neoplasm Status: Acute (9) Difficult intravenous access: Problem details: Continue to attempt peripheral IV access until blood cultures are negative for 48 hours when PICC line can be placed. Status: Acute Plan Continue in hospital for evaluation management of MRSA bacteremia. Continue to coordinate with Infectious Disease consultation Time Spent With Patient Total time spent: Total time spent today is 65 minutes, 45 minutes in coordination of care and discussing with patient and other providers management of MRSA bacteremia Subjective Date Seen: 03/30/24 Interval history: 83 elderly male resident of [facility] DM, HTN, dyslipidemia, hypothyroidism, CKD, underlying PSYCHIATRIC ORDERLY shunt, prior history of CVA is presenting with N/V/diarrhea x 1 day associated with hypotension, tachycardic. No fevers, chills, abdominal pain, respiratory or complaints. On admission to the emergency department: Tmax 99.8, WBC 24K, cr 2, LFT NL, lactate 6, responded to IV fluids, BCx positive for GPC in clusters. Started on IV vancomycin, IV Zosyn. Now on daptomycin alone at 8 milligrams/kilo IV daily. CT CAP (con): No intrathoracic or abdominopelvic pathology. Repeat CXR no pneumonia Initial blood cultures obtained on September 23 turned positive in less than 24 hours. Subsequent daily blood cultures have remained positive including September 25, 48 hours ago. PICC line was placed and then removed because of ongoing positive blood cultures. Blood cultures from September 26, yesterday are negative so far. A source for MRSA bacteremia has not been definitely identified. He does have poor dentition. There was some question of proctitis as well. He now has low back pain. He has MRSA in his urine. Today patient reports that he is having low back pain. He thinks this is gotten worse in the last day. We attempted to obtain an MRI but due to his PSYCHIATRIC ORDERLY shunt this cannot be done here. We lack the ability to test shunt valve function before and after imaging. He has no other concerns at this time. We discussed goals of care. Patient indicates a desire to return to his former living arrangements and would like life prolonging treatment to maintain that. On the other hand he is indicated to me as well as previously indicated to my partners that he is reluctant to get aggressive medical treatment to prolong his life. He has agreed to prolonged IV antibiotics at this point. Exam Narrative: Exam Narrative: He is alert, pleasant and appears in no distress. Eyes normal. Oropharynx with poor dentition. Respirations are clear to auscultation. Breathing is unlabored on room air. Cardiovascular: S1, S2, regular rate and rhythm. Abdomen: Bowel sounds active. Abdomen is soft without tenderness or mass. Erythema in the skin folds of his groin and around his scrotum noted. Perianal area is soiled and with erythema as well. No other significant skin lesions identified. Palpation over his back is notable for mild lumbar tenderness. No other focal tenderness. He poorly moves his lower extremities particularly on the left. He tells me this is baseline for him. Const: Vital Signs, click to edit/add: Vital Signs - 24 hr 09/27/23 11:00 09/27/23 15:00 09/27/23 16:00 Temperature 100.2 F H 97.2 F L Pulse Rate Pulse Rate [Right Pulse Oximeter] 107 H 102 H 102 H Respiratory Rate 22 22 22 Blood Pressure [Le ft Arm] 144/69 H 123/53 L Blood Pressure [Ri ght Arm] Pulse Oximetry 89 91 Oxygen Delivery Me thod Room Air Nasal Cannula Oxygen Flow Rate 0.5 09/27/23 17:00 09/27/23 19:00 09/27/23 22:20 Temperature 98.4 F Pulse Rate 102 H Pulse Rate [Right Pulse Oximeter] 106 H Respiratory Rate 24 Blood Pressure [Le ft Arm] 159/73 H Blood Pressure [Ri ght Arm] Pulse Oximetry 89 89 Oxygen Delivery Me thod Room Air Nasal Cannula Oxygen Flow Rate 0.5 09/27/23 22:20 09/28/23 01:00 09/28/23 03:00 Temperature 97.1 F L 98.5 F Pulse Rate 83 Pulse Rate [Right Pulse Oximeter] 101 H 97 Respiratory Rate 20 20 Blood Pressure [Le ft Arm] Blood Pressure [Ri ght Arm] 140/61 H 151/76 H Pulse Oximetry 90 95 Oxygen Delivery Me thod Nasal Cannula Nasal Cannula Oxygen Flow Rate 0.5 0.5 09/28/23 07:00 09/28/23 07:00 09/28/23 08:00 Temperature 97.6 F Pulse Rate Pulse Rate [Right Pulse Oximeter] 96 96 Respiratory Rate 22 22 22 Blood Pressure [Le ft Arm] Blood Pressure [Ri ght Arm] 144/59 H Pulse Oximetry 90 90 Oxygen Delivery Me thod Room Air Room Air Oxygen Flow Rate 09/28/23 08:10 Temperature Pulse Rate 95 Pulse Rate [Right Pulse Oximeter] Respiratory Rate Blood Pressure [Le ft Arm] Blood Pressure [Ri ght Arm] Pulse Oximetry Oxygen Delivery Me thod Oxygen Flow Rate Labs Labs: Laboratory Results - last 24 hr 09/28/23 06:31 WBC 10.49 RBC 4.11 L Hgb 10.6 L Hct 33.9 L MCV 83 MCH 26 MCHC 31 L RDW Coeff of Adriana 15.8 H Plt Count 147 Neut % (Auto) 83.1 H Lymph % (Auto) 6.2 L [place] % (Auto) 7.6 Eos % (Auto) 1.4 Baso % (Auto) 0.3 Neut # (Auto) 8.70 H Lymph # (Auto) 0.70 L [place] # (Auto) 0.80 Eos # (Auto) 0.15 Baso # (Auto) 0.03 Abs Immat Gran (auto) 0.15 Imm/Tot Granulo (auto) 1.4 Sodium 137 Potassium 4.0 Chloride 110 Carbon Dioxide 22 Anion Gap 5 L BUN 12 Creatinine 0.9 Estimated Creat Clear 51.39 Estimated GFR 85 Glucose 175 H Calcium 7.7 L Total Bilirubin 0.3 AST 14 ALT 9 Alkaline Phosphatase 87 Total Creatine Kinase 42 L C-Reactive Protein 23.7 H NT-Pro-B Natriuret Pep 4710 Total Protein 5.7 L Albumin 2.9 L
--- NOTE | 2023-09-28 15:21 | PM.DS1 ---
DS: Providers Provider Date Seen: 09/28/23 Date of admission: 09/24/23 16:57 Primary care physician: Heriberto Hollins MD Admitting Clinician: Paloma Christina PA-C Attending Physician on discharge: Abundio Lewis MD Date of Discharge: 09/28/23 DS: Diagnosis Discharge Diagnosis (1) MRSA bacteremia: Status: Acute Problem details: Continued positive blood cultures. On daptomycin 8 milligrams/kg IV daily. Source of infection unclear. May need transfer for MRI of the spine due to presence of shunt. May need transfer for DANIEL to evaluate for endocarditis. So far patient has declined transfer. (2) History of CVA (cerebrovascular accident): Status: Acute Problem details: Left hemiparesis. Has been nonambulatory since this CVA 3 years ago per patient report Takes clopidogrel and aspirin (3) Sepsis: Status: Acute Problem details: On admission patient met sepsis criteria; laboratory testing shows improvement in fever. Blood pressures been good. Persistent mild tachycardia. Borderline O2 sats requiring minimal oxygen periodically, primarily when he sleeps. Continue daptomycin. Reviewed POLST with patient which indicates oral antibiotics only, however patient verbalizes wish to continue with IV antibiotics at this time - no heroic interventions - repeats am of 09/24 - no transfer. Continue discussed with patient has he may need transfer to tertiary care to identify paraspinal infection or endocarditis (4) Urinary tract infection: Status: Acute Problem details: MRSA in urine. Due to MRSA bacteremia? (5) Type 2 diabetes mellitus: Status: Acute Problem details: Most recent A1c (07/23/23) 8.8, up from 6.8 in March Hold metformin Glucose checks ACHS, ISS, diabetic diet long acting insulin detemir orderd, sliding scale. Blood sugar control improving. (6) Difficult intravenous access: Status: Acute Problem details: Continue to attempt peripheral IV access until blood cultures are negative for 48 hours when PICC line can be placed. (7) CKD (chronic kidney disease): Status: Acute Problem details: creatinine: 2.0 --> 1.2 Avoid nephrotoxic medications, renally dose antibiotics, trend (8) Rectal abnormality: Status: Acute Problem details: CT with incidental finding showing focal eccentric thickening of the rectal wall, which can be seen with a proctitis Loose stools reported earlier today Recommend outpatient follow-up for direct visualization with colonoscopy upon resolution of symptoms to exclude underlying neoplasm DS: Summary Hospital Course Hospital Course: Patient admitted to the hospital on September 23. Less than 24 hours into the admission his blood cultures on admission were positive. Subsequently grew out MRSA. Initially treated with vancomycin and Zosyn. Has subsequently been switched to daptomycin. He has gradually improved during his hospital stay. Blood cultures have remained positive on September 24 and September 25. Cultures from September 26 are pending at this time. He had a trans thoracic echo which was unremarkable. He had a CT chest abdomen pelvis which did not show a definite source of infection. He is reporting back pain today which is a new concern for him. Unable to do MRI of his spine secondary to his COLLECTIVE BARGAINING SPECIALIST shunt. Given the persistence of his bacteremia, concern about paraspinal infection or endocarditis will transfer for Infectious Disease consult as well as possible Cardiology and neuro surgery consult if indicated. Patient transfer to [facility]. Time Spent with Patient Time attestation: Total time spent providing and/or coordinating discharge services: Time spent: Greater than 30 minutes Exam Narrative: Exam Narrative: See note from earlier today Const: Vital Signs, click to edit/add: Vital Signs - 24 hr 09/27/23 16:00 09/27/23 17:00 09/27/23 19:00 Temperature 98.4 F Pulse Rate 102 H Pulse Rate [Right Pulse Oximeter] 102 H 106 H Respiratory Rate 22 24 Blood Pressure [Le ft Arm] 159/73 H Blood Pressure [Ri ght Arm] Pulse Oximetry 89 Oxygen Delivery Me thod Room Air Oxygen Flow Rate 09/27/23 22:20 09/27/23 22:20 09/28/23 01:00 Temperature 97.1 F L Pulse Rate 83 Pulse Rate [Right Pulse Oximeter] 101 H Respiratory Rate 20 Blood Pressure [Le ft Arm] Blood Pressure [Ri ght Arm] 140/61 H Pulse Oximetry 89 90 Oxygen Delivery Me thod Nasal Cannula Nasal Cannula Oxygen Flow Rate 0.5 0.5 09/28/23 03:00 09/28/23 07:00 09/28/23 07:00 Temperature 98.5 F 97.6 F Pulse Rate Pulse Rate [Right Pulse Oximeter] 97 96 Respiratory Rate 20 22 22 Blood Pressure [Le ft Arm] Blood Pressure [Ri ght Arm] 151/76 H 144/59 H Pulse Oximetry 95 90 90 Oxygen Delivery Me thod Nasal Cannula Room Air Room Air Oxygen Flow Rate 0.5 03/30/24 08:00 09/28/23 08:10 09/28/23 11:00 Temperature 99 F Pulse Rate 95 Pulse Rate [Right Pulse Oximeter] 96 101 H Respiratory Rate 22 22 Blood Pressure [Le ft Arm] Blood Pressure [Ri ght Arm] 170/78 H Pulse Oximetry 91 Oxygen Delivery Me thod Room Air Oxygen Flow Rate DS: Data Data Completed and Pending Labs on day of discharge: Labs from last 24 hours 09/28/23 06:31 WBC 10.49 RBC 4.11 L Hgb 10.6 L Hct 33.9 L MCV 83 MCH 26 MCHC 31 L RDW Coeff of Adriana 15.8 H Plt Count 147 Neut % (Auto) 83.1 H Lymph % (Auto) 6.2 L [place] % (Auto) 7.6 Eos % (Auto) 1.4 Baso % (Auto) 0.3 Neut # (Auto) 8.70 H Lymph # (Auto) 0.70 L [place] # (Auto) 0.80 Eos # (Auto) 0.15 Baso # (Auto) 0.03 Abs Immat Gran (auto) 0.15 Imm/Tot Granulo (auto) 1.4 Sodium 137 Potassium 4.0 Chloride 110 Carbon Dioxide 22 Anion Gap 5 L BUN 12 Creatinine 0.9 Estimated Creat Clear 51.39 Estimated GFR 85 Glucose 175 H Calcium 7.7 L Total Bilirubin 0.3 AST 14 ALT 9 Alkaline Phosphatase 87 Total Creatine Kinase 42 L C-Reactive Protein 23.7 H NT-Pro-B Natriuret Pep 4710 Total Protein 5.7 L Albumin 2.9 L Preliminary micro results at discharge 09/25/23 16:55 Blood Culture - Preliminary Blood Gram positive cocci 09/27/23 07:39 Blood Culture - Preliminary Blood NO GROWTH AFTER 24 HOURS 09/27/23 07:47 Blood Culture - Preliminary Blood NO GROWTH AFTER 24 HOURS 09/26/23 07:00 Blood Culture - Preliminary Blood NO GROWTH AFTER 48 HOURS 09/26/23 05:30 Blood Culture - Preliminary Blood Gram positive cocci 09/26/23 18:53 Wound Culture - Preliminary Catheter Tip - Other 09/25/23 17:02 Blood Culture - Preliminary Blood Gram positive cocci Discharge Plan Discharge Disposition: [facility] Date of Admission: 09/24/23 16:57 Attending Provider on Discharge: Jevon Lewis Primary Care Provider: Heriberto Hollins Discharge Orders: Transfer of Care to Other Hospital (ORDER); Ordered 09/28/23 Ordered By: Jevon Lewis Additional Instructions: 8mg/kg/24 DAPTOMYCIN sent by paper script to 3 for them to order and be prepared for patient. weekly CBC, CMP, CK required. Oxygen Delivery Method: Nasal Cannula Oxygen Flow Rate: 0.5 liters/NC p.r.n.
--- NOTE | 2023-09-28 18:34 | PC.NURSE ---
Nurse to nurse report given to WESLEY Aguilera from [facility].
--- NOTE | 2023-09-28 19:35 | PC.NURSE ---
Pt sent with [facility] to [facility] at [facility]. Daughter Ginny called for update
== END 2023-09-28 19:15 | disposition short-term general hospital (02) | DRG 872 ==
LOC: ED 15:48 → MEDSURG 16:23
PROVIDERS: Admitting Provider Physician Assistant; Emergency Provider Family Medicine; PCP Family Medicine; Visit Provider Family Medicine
DX: A41.02 Sepsis due to Methicillin resistant Staphylococcus aureus (principal); N39.0 Urinary tract infection, site not specified; Q43.8 Other specified congenital malformations of intestine; G91.2 (Idiopathic) normal pressure hydrocephalus; I69.354 Hemiplegia and hemiparesis following cerebral infarction affecting left non-dominant side; B95.62 Methicillin resistant Staphylococcus aureus infection as the cause of diseases classified elsewhere; T80.89XA Other complications following infusion, transfusion and therapeutic injection, initial encounter; N18.9 Chronic kidney disease, unspecified; K21.9 Gastro-esophageal reflux disease without esophagitis; Z79.84 Long term (current) use of oral hypoglycemic drugs; E11.22 Type 2 diabetes mellitus with diabetic chronic kidney disease; N40.0 Benign prostatic hyperplasia without lower urinary tract symptoms; Z98.2 Presence of cerebrospinal fluid drainage device; R09.02 Hypoxemia; E78.5 Hyperlipidemia, unspecified; E03.9 Hypothyroidism, unspecified
CPT/HCPCS: 36415; 36573; 36589; 51701; 51702; 51798; 71045; 71260; 74177; 80048; 80053; 81001; 82550; 82803; 82962; 83605; 83735; 83880; 84132; 84145; 84484; 85025; 85027; 86140; 87040; 87070; 87081; 87086; 87186; 87493; 87631; 93005; 93306; 94640; 94761; 97161; 97165; 97535; 99284; 99285; A4221; A9270; C1751; J0878; J1650; J1720; J2405; J2543; J3370; J3475; J3480; J7030; J7050; J7070; P9047; Q9967

== ENCOUNTER 2023-09-28 19:00 | Outpatient (CLI) | payer OTHER, SELFPAY | END 2023-09-28 19:01 | disposition home or self-care (01) | LOC: AMB 10-05 14:30 | PROVIDERS: PCP Family Medicine; Visit Provider Family Medicine | DX: R78.81 Bacteremia (principal); A41.9 Sepsis, unspecified organism; N39.0 Urinary tract infection, site not specified | CPT/HCPCS: A0425; A0427 ==